=== PATIENT | male | born 1955 | race Caucasian/White ===

== ENCOUNTER 2016-06-26 14:37 | Observation (INO) | payer MEDICAID ==
[~2016-06-26] VITALS: Ht 175.3 cm; Wt 79.8 kg
--- NOTE | ~2016-06-26 | HEMODYNAMI ---
PATIENT:NARINDER KNOX MEDICAL RECORD: [id number] : 57 [facility] ADMISSION DATE: 06/26/16 Generatedon:06/27/201615:12 Patient name: NARINDER KNOX Patient #: [id number] SSN: DO B: 1955 Date of study: 06/27/2016 Page: Of Hemodynamic Procedure Report Patient Data Patient Demographics Procedure consent was obtained First Name: NARINDER Gender: Male Last Name: ABILIO : 1955 [facility] Initial: GONZALO Age: 61 year(s) Patient #: [id number] Race: Unknown Additional ID: [id number] Contact details Address: [address] [place] [address] [facility] State: [place] City: [place] Zip code: [address] Past Medical History Allergies Allergen Reaction Date Comments Reported Codeine 06/27/2016 Admission Admission Data Admission Date: 06/26/2016 Admission Time: 14:37 Room #: 2118 Procedure Procedure Types Cath Procedure Diagnostic Procedure [facility] w/Coronaries Miscellaneous Procedures Moderate Sedation up to 30 minutes Procedure Description Procedure Date Procedure Date: 06/27/2016 Procedure Start Time: 14:47 Procedure End Time: 15:08 Procedure Staff Name Function Isaias Deshpande MD Performing Physician Giles Marquez RT Scrub Sharla Eid RN Nurse Gómez Quevedo RT Monitor Procedure Data Cath Procedure Fluoroscopy Diagnostic fluoroscopy Total fluoroscopy Time: 3.9 time: 3.9 min min Diagnostic fluoroscopy Total fluoroscopy dose: 220 dose: 220 mGy mGy Contrast Material Contrast Material Type Amount (ml) Isovue 300 76 Entry Location Entry Primary Successful Side Size Upsize Upsize Entry Closure Olson ccessful Closure Location (Fr) 1 (Fr) 2 (Fr) Remarks Device Remarks Radial Right 6 Fr Mechanical artery Short Compression Femoral Right 5 Fr Exoseal artery Diagnostic catheters Device Type Used For End Catheter Placement Terumo 5Fr Jasson 110cm LV Angiography catheter Cordis 5Fr JL 4.0 Left Coronary Catheter (MP) Angiography Cordis 5Fr 3DRC Catheter Right Coronary (MP) Angiography Cordis 5Fr Pigtail LV Angiography Catheter (MP) Procedure Complications No complications Procedure Medications Medication Administration Route Dosage Oxygen NC 2 l/min Heparin Flush Bag added to field 2 bags (1000units/500ml NS) Lidocaine 2% added to field 20 Radial Cocktail added to field 1 syringe (Verapomil 2mg/Nitro 400mcg/Heparin 1500units) Fentanyl I.V. 50 mcg Versed I.V. 1 mg Radial Cocktail I.A. 1 syringe (Verapomil 2mg/Nitro 400mcg/Heparin 1500units) Fentanyl I.V. 50 mcg Versed I.V. 1 mg Versed I.V. 0.5 mg Versed I.V. 0.5 mg Hemodynamics Rest Heart Rate: 101 (bpm) Gradients Valve Time Site Site Mean SEP/DFP Peak To Heart Use 1 2 (mmHg) (sec/min) Peak Rate (mmHg) (bpm) Aortic 15:02 AO LV 100 Snapshots Pre Cath Intra NCS Post Cath Vital Signs Time Heart Resp SPO2 NIBP (mmHg) Rhythm Pain Sedation Rate (ipm) (%) Status Level (bpm) 14:37:19 103 25 97 114/75(100) NSR 0 (11) 10(A) , No pain 14:42:04 106 27 94 103/85(89) NSR 0 (11) 10(A) , No pain 14:46:06 102 20 93 97/76(86) NSR 0 (11) 10(A) , No pain 14:50:11 105 17 93 92/65(82) NSR 0 (11) 9(A) , No pain 14:54:15 101 16 92 109/64(99) NSR 0 (11) 9(A) , No pain 14:58:11 101 16 94 106/89(101) NSR 0 (11) 9(A) , No pain 15:02:12 101 17 93 111/78(88) NSR 0 (11) 9(A) , No pain 15:06:18 99 16 94 91/72(87) NSR 0 (11) 9(A) , No pain Medications Time Medication Route Dose Verified Delivered Reason Notes Effectiveness by by 14:41:25 Oxygen NC 2 l/min Sharla Sharla used for Eid Eid behavioral sciences department chair RN 14:41:33 Heparin Flush added 2 bags Sharla Sharla used for Bag to Eid Eid procedure (1000units/500ml field RN RN NS) 14:41:41 Lidocaine 2% added 20ml Sharla Sharla used for to vial Eid Eid procedure field RN RN 14:41:54 Radial Cocktail added 1 Sharla Sharla for (Verapomil to syringe Eid Eid vasodilation 2mg/Nitro field RN RN 400mcg/Heparin 1500units) 14:47:54 Fentanyl I.V. 50 mcg Sharla Sharla for sedation Eidernie Eid RN RN 14:47:59 Versed I.V. 1 mg Sharla Sharla for sedation Eidernie Eid RN RN 14:48:49 Radial Cocktail I.A. 1 Sharla Isaias for (Verapomil syringe Eid Epps vasodilation 2mg/Nitro RN 400mcg/Heparin 1500units) 14:49:37 Fentanyl I.V. 50 mcg Sharla Sharla for sedation Stanton Eid RN RN 14:49:42 Versed I.V. 1 mg Sharla Sharla for sedation Eidernie Eid RN RN 14:57:08 Versed I.V. 0.5 mg Sharla Sharla for sedation Eid Eid RN RN 15:00:37 Versed I.V. 0.5 mg Sharla Sharla for sedation Eid Eid RN residential interior designer Log Time Note 14:05:39 Giles Marquez RT(R) sent for patient. Start room use. 14:12:40 Time tracking: Regular hours 14:12:43 Plan of Care:Hemodynamics will remain stable., Cardiac rhythm will remain stable., Comfort level will be maintained., Respiratory function will remain adequate., Patient/ family verbilizes understanding of procedure., Procedure tolerated without complication., Recovers from procedure without complications.. 14:29:21 Patient received from PCU to CCL 3 Alert and oriented. Tansferred to table in Supine position. 14:29:22 Warm blankets applied, and twan hugger turned on for patient comfort. 14:29:22 Correct patient and procedure confirmed by team. 14:29:24 Signed procedure consent form obtained from patient. 14:29:25 ECG and BP/O2 sat monitors applied to patient. 14:35:58 Vital chart was started 14:41:25 Oxygen 2 l/min NC was administered by Sharla Eid RN; used for procedure; 14:41:33 Heparin Flush Bag (1000units/500ml NS) 2 bags added to field was administered by Sharla Eid RN; used for procedure; 14:41:41 Lidocaine 2% 20ml vial added to field was administered by Sharla Eid RN; used for procedure; 14:41:54 Radial Cocktail (Verapomil 2mg/Nitro 400mcg/Heparin 1500units) 1 syringe added to field was administered by Sharla Eid RN; for vasodilation; 14:44:42 Baseline sample Acquired. 14:44:45 Rhythm: sinus rhythm 14:44:47 Full Disclosure recording started 14:45:15 H&P Date Dictated: 06/26/2016 Within 30 days and on chart.. 14:45:16 Pre-procedure instructions explained to patient. 14:45:17 Pre-op teaching completed and patient verbalized understanding. 14:45:18 Family unavailable. 14:45:20 Patient NPO since Midnight. 14:45:37 Patient allergic to Codeine 14:45:40 Is the patient allergic to Iodine/contrast media? No. 14:45:45 Is patient on blood thinner?No 14:45:47 Patient diabetic? No. 14:45:49 If diabetic: On Metformin? No 14:45:49 ----Pre-sedation anethsthesia assessment.---- 14:45:52 Previous problem with sedation/anesthesia? No ? 14:45:53 Snore? Yes 14:45:54 Sleep apnea? No 14:45:55 Deviated septum? No 14:45:56 Opens mouth fully? Yes 14:45:58 Sticks out tongue? Yes 14:46:03 Airway obstruction? Yes copd 14:46:08 Dentures? Yes out 14:46:13 Pre procedure: right dorsailis pedis pulse 1+ Palpable, but thready & weak; easily obliterated 14:46:15 Modified Alex's test Ulnar < 7 seconds 14:46:19 Patient pain scale 0/10 ?. 14:46:22 IV patent on arrival in right antecubital with 0.9% NaCl at 10ml/hr. 14:46:27 Right Radial & Right Groin area was prepped with chlora-prep and draped in sterile fashion 14:46:27 Alarms reviewed by R. N. 14:46:28 Sharps counted by scrub and verified by R.N. 14:46:29 --------ALL STOP TIME OUT------ 14:46:29 Final Timeout: patient, procedure, and site verified with staff and physician. All members of the team are in agreement. 14:46:31 Right Radial & Right Groin site verified by team. 14:46:35 Physical assessment completed. ASA score P 2 - A patient with mild systemic disease as per Isaias Deshpande MD. 14:46:37 Sedation plan: IV Moderate Sedation Versed, Fentanyl 14:47:37 Use device set Radial Dx 14:47:38 Acist Syringe opened to sterile field. 14:47:39 Medline Cath Pack opened to sterile field. 14:47:39 Bag Decanter opened to sterile field. 14:47:39 Terumo 6Fr Slender Glidesheath opened to sterile field. 14:47:40 St Dionicio 260cm J .035 wire opened to sterile field. 14:47:40 Acist Hand Control opened to sterile field. 14:47:40 Acist Manifold opened to sterile field. 14:47:41 Tegaderm 4 x 4 opened to sterile field. 14:47:41 MBrace Wrist Support opened to sterile field. 14:47:44 Procedure started. 14:47:47 Local anesthetic to right femoral artery with Lidocaine 2% by Isaias Deshpande MD.INITIAL ACCESS ONLY 14:47:54 Fentanyl 50 mcg I.V. was administered by Sharla Edi RN; for sedation; 14:47:55 A 6 Fr Short sheath was inserted into the Right Radial artery 14:47:59 Versed 1 mg I.V. was administered by Sharla Eid RN; for sedation; 14:48:49 Radial Cocktail (Verapomil 2mg/Nitro 400mcg/Heparin 1500units) 1 syringe I.A. was administered by Isaias Deshpande MD; for vasodilation; 14:49:03 A Terumo 5Fr Jasson 110cm catheter was advanced over the wire and used for LV Angiography. 14:49:11 Zero performed for pressure channel P1 14:49:16 Zero performed for pressure channel P1 14:49:18 Zero performed for pressure channel P1 14:49:20 Zero performed for pressure channel P1 14:49:37 Fentanyl 50 mcg I.V. was administered by Sharla Eid RN; for sedation; 14:49:42 Versed 1 mg I.V. was administered by Sharla Eid RN; for sedation; 14:52:58 Terumo ANGLED SS 260CM glide wire opened to sterile field. 14:53:35 Zero performed for pressure channel P1 14:53:39 Zero performed for pressure channel P1 14:54:46 Zero performed for pressure channel P1 14:55:00 Catheter removed. 14:55:30 Local anesthetic to right femoral artery with Lidocaine 2% by Isaias Deshpande MD.ADDITIONAL ACCESS 14:55:37 Terumo 5Fr Kenneth Sheath opened to sterile field. 14:55:44 Use device set Multipack Set 14:55:46 Diagnostic Infinity 5Fr Multipack catheter opened to sterile field. 14:57:08 Versed 0.5 mg I.V. was administered by Shalra Eid RN; for sedation; 14:58:26 A 5 Fr sheath was inserted into the Right Femoral artery 14:58:31 A Cordis 5Fr JL 4.0 Catheter (MP) was advanced over the wire and used for Left Coronary Angiography. 14:58:34 LCA angiography performed. 14:59:04 Catheter removed. 14:59:09 A Cordis 5Fr 3DRC Catheter (MP) was advanced over the wire and used for Right Coronary Angiography. 14:59:12 RCA angiography performed. 15:00:37 Versed 0.5 mg I.V. was administered by Sharla Eid RN; for sedation; 15:00:52 Catheter removed. 15:00:58 A Cordis 5Fr Pigtail Catheter (MP) was advanced over the wire and used for LV Angiography. 15:01:00 LV angiography performed. 15:01:05 Injector settings: Ml/sec: 10, Volume: 20, 15:01:57 Zero performed for pressure channel P1 15:02:41 EF : 50 % 15:02:43 Catheter removed. 15:02:52 Contrast amount:Isovue 300 76ml. 15:03:07 Cordis 5Fr Exoseal opened to sterile field. 15:03:07 Terumo TR Band Standard opened to sterile field. 15:05:11 Zero performed for pressure channel P1 15:06:04 Sheath removed intact; hemostasis achieved with Exoseal to the Right Femoral artery. 15:06:12 Sheath removed intact; hemostasis achieved with Mechanical Compression to the Right Radial artery. 15:06:15 Procedure ended.(Physican Out) 15:06:40 Fluoroscopy time 03.90 minutes. 15:06:46 Flurop Dose total: 220 15:06:46 Fluoroscopy dose: 220 mGy 15:06:48 Sharps counted by scrub and verified by R.N. 15:06:50 TR band inflated with 10cc of air. 15:06:52 Insertion/operative site no bleeding no hematoma. 15:06:55 Post-op/insertion site Right Femoral artery dressed using a 4 x 4 and Tegaderm. 15:06:59 Post right femoral artery:stable 15:07:04 Post right radial artery:stable 15:07:13 Post-procedure physical assessment completed. ASA score P 2 - A patient with mild systemic disease as per Isaias Deshpande MD. 15:07:15 Post procedure rhythm: sinus rhythm 15:07:17 Post procedure instruction explained to patient.Patient verbalizes understanding. 15:07:33 Procedure type changed to Cath procedure, Diagnostic procedure, LHC, LHC w/Coronaries, Miscellaneous Procedures, Moderate Sedation up to 30 minutes 15:07:37 Procedure and supply charges have been captured, reviewed, submitted and are correct. 15:07:51 Procedure Complication : No complications 15:07:53 Vital chart was stopped 15:07:53 See physician's report for complete and final results. 15:07:55 Report given to PCU. 15:07:58 Patient transfered to PCU with Bed. 15:08:04 Procedure ended. 15:08:04 Full Disclosure recording stopped 15:08:12 End room use (Document Last) Device Usage Item Name Manufacture Quantity Catalog Hospital Part Current Minimal Lot# / Number Charge Number Stock [facility]# [facility] 417[facility] [id number] [id number] 20 Syringe [employer] Inc Medline Cardinal 1 [id number] 232290 95981 667614 5 Cath Pack Health Bag Microtek 1 2001S [id number] 92076 200907 5 [employer] Terumo 6Fr Terumo 1 [id number] 919587 904131 077142 [address] Dionicio St Dionicio 1 715575 318261 953488 347323 30 260cm J .035 wire Acist Hand Acist 1 62222 676996 381182 420958 5 Control Medical [employer] Inc Acist Acist 1 37583 550628 613039 543567 5 Manifold Medical Systems Inc Tegaderm 4 3M 1 1626W 239671 119316 973549 5 x 4 MBrace Advanced 1 140-0250-00 326000 67393 559563 5 Wrist Vascular Support Dynamics Terumo 5Fr Terumo 1 73-8324 336990 509000 552471 5 Jasson 110cm catheter Terumo Terumo 1 [id number] 212934 280897 227243 5 ANGLED SS 260CM glide wire Terumo 5Fr Terumo 1 [id number] 380746 650425 943641 40 Kenneth Sheath Diagnostic Cardinal 1 [id number] 918034 49509 860650 30 Infinity [employer] 5Fr Multipack catheter Cordis 5Fr Cardinal 1 636622 5 JL 4.0 Health Catheter (MP) Cordis 5Fr Cardinal 1 684449 5 3DRC Health Catheter (MP) Cordis 5Fr Cardinal 1 295384 5 Pigtail Health Catheter (MP) Cordis 5Fr Cardinal 1 EX500 973321 557867 061008 10 Exoseal Health Terumo TR Terumo 1 [id number] 011896 581722 935989 40 Band Standard Signature Audit [place] Stage Time Signature Unsigned Intra-Procedure 06/27/2016 Gómez Quevedo 3:12:03 PM RT(R) Signatures Monitor : Gómez Quevedo RT Signature : Date : Time : [facility] [address] [place] [address]
[~2016-06-26 14:37] MED LIST: IPRAT-ALBUT 0.5-3 ML UPD; LANOXIN250 MCG PO; MOTRIN600 MG PO; NORCO 10/325 TA1 TA1 PO
--- NOTE | 2016-06-26 15:00 | NUR ---
RECEIVED PT FROM ADMISSIONS VIA W/C WITH SOB O2 SAT 91% ON ROOM AIR O2 APPLIED 2LPM NC O2 SAT 97% SKIN W/D COLOR WNL 2+ PITTING EDEMA NOTED TO BLEs SALINE LOCK ACCESSED TO RFA X2 STICKS USING 20 GA IV CATH WITH ASEPTIC TECJNIQUE PT PT TOLERATED WELL TELEMETRY APPLIED SINUS TACH RATE 110 WILL CONTINUE TO MONITOR
[2016-06-26] MEDS ORDERED: FUROSEMIDE20 MG PO (15:08)
[2016-06-26 15:19] VITALS: BP 144/69; BMI 26.0
[2016-06-26 15:36] LABS: BASOPHILS 0.4 % (0.0-2.0); EOSINOPHILS 0.6 % (0-7); HEMATOCRIT 40.2 % (42.0-54.0); HEMOGLOBIN 13.6 g/dL (13.5-17.5); IMMATURE GRANULOCYTES 0.1 % (0-5); LYMPHOCYTES 15.3 % (15-50); MCH 32.5 pg (26.0-34.0); MCHC 33.8 g/dL (31.0-37.0); MCV 95.9 fL (80.0-100.0); MEAN PLATELET VOLUME 9.3 fL (7.4-10.4); MONOCYTES 11.6 % (2-11); PLATELET COUNT 190 10x3/uL (130-400); RBC 4.19 10x6/uL (4.20-6.10); RDW 16.4 % (11.5-14.5); WBC 7.8 10x3/uL (4.8-10.8)
--- NOTE | 2016-06-26 15:46 | NUR ---
SPOKE WITH SILVIA/OLEG CHOWDHURY TO ADVISE TO PUT PT ON FOR LHC WITH DR. MCNEILL FOR TOMORROW AFTERNOON. VERBAL ACKNOWLEDGEMENT RECEIVED.
[2016-06-26 15:48] LABS: INR 1.27 (0.85-1.17); PROTIME 15.8 SECONDS (11.6-15.0)
[2016-06-26 15:51] VITALS: BP 144/69
[2016-06-26 15:53] LABS: CALC OSMOLALITY 284 mosm/kg (275-300); CALCIUM 8.9 mg/dL (8.5-10.1); CARBON DIOXIDE 32.2 mmol/L (21.0-32.0); CHLORIDE - SERUM 100 mmol/L (98-107); GLUCOSE 112 mg/dL (74-106); POTASSIUM - SERUM 4.2 mmol/L (3.5-5.1); SODIUM 142 mmol/L (136-145); UREA NITROGEN 14 mg/dL (7-18); eGFR NON AFRICAN AMERICAN 81 mL/min (90-120)
--- NOTE | 2016-06-26 19:15 | NUR ---
INITIAL ROUNDS MADE. PT SITTING UP IN BED WATCHING TV WITH FAMILY AT BEDSIDE. DISCUSSED PLAN OF CARE AND ANSWERED QUESTIONS. PT DENIES NEEDS OR C/O AT THIS TIME. CALL LIGHT IN REACH. WILL CONT TO MONITOR.
--- NOTE | 2016-06-26 23:56 | NUR ---
BODY MASKER AT BEDSIDE FOR VS. NEEDS ADDRESSED AT THIS TIME. CALL LIGHT IN REACH. WILL CONT TO MONITOR.
[2016-06-27] VITALS: BP 100/71
[2016-06-27 04:00] VITALS: BP 116/68
[2016-06-27 07:48] VITALS: BP 87/63
[2016-06-27 09:32] LABS: BASOPHILS 0.5 % (0.0-2.0); EOSINOPHILS 1.8 % (0-7); HEMATOCRIT 47.4 % (42.0-54.0); HEMOGLOBIN 16.3 g/dL (13.5-17.5); LYMPHOCYTES 22.3 % (15-50); MCH 32.9 pg (26.0-34.0); MCHC 34.4 g/dL (31.0-37.0); MCV 95.8 fL (80.0-100.0); MEAN PLATELET VOLUME 9.7 fL (7.4-10.4); MONOCYTES 15.5 % (2-11); NEUTROPHILS 59.9 % (40-80); PLATELET COUNT 222 10x3/uL (130-400); RBC 4.95 10x6/uL (4.20-6.10); WBC 6.3 10x3/uL (4.8-10.8)
[2016-06-27 09:41] LABS: CALC OSMOLALITY 282 mosm/kg (275-300); CALCIUM 8.6 mg/dL (8.5-10.1); CARBON DIOXIDE 38.3 mmol/L (21.0-32.0); CHLORIDE - SERUM 96 mmol/L (98-107); CREATININE - SERUM 0.9 mg/dL (0.6-1.3); GLUCOSE 121 mg/dL (74-106); SODIUM 141 mmol/L (136-145); UREA NITROGEN 14 mg/dL (7-18); eGFR NON AFRICAN AMERICAN > 90 mL/min (90-120)
[2016-06-27 09:58] LABS: POTASSIUM - SERUM 3.1 mmol/L (3.5-5.1)
--- NOTE | 2016-06-27 10:04 | NUR ---
PT IS ALERT. ASSESSMENT DONE PER FLOWSHEET. NO OTHER NEEDS AT THIS TIME. WILL CONTINUE TO MONITOR.
[2016-06-27 11:46] VITALS: BP 94/64
[2016-06-27 14:08] VITALS: Ht 175.3 cm; Wt 79.8 kg
--- NOTE | 2016-06-27 14:30 | NUR ---
PT IS ALERT. NO SS OF DISTRESS AT THIS TIME. 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
[2016-06-27] MEDS ORDERED: HYZAAR 50-12.51 TAB PO (15:34)
[2016-06-27 16:01] VITALS: BP 99/71
--- NOTE | 2016-06-28 14:36 | OP ---
PATIENT NAME: NARINDER KNOX MEDICAL RECORD: [id number] :57 LOCATION:D.M2 D.2118 ADMISSION DATE:06/26/16 SURGEON: GAURAV MCNEILL MD DATE OF OPERATION: 06/27/2016 PROCEDURE: Left heart catheterization, selective coronary angiography, right femoral artery approach. CATHETERS: A 5-Maltese sheath, 5/4 left and right Tha, 5/4 pig. The procedure was well tolerated and the patient returned to beltre, sheath removed. ExoSeal device was placed. FINDINGS: Left ventriculography in the 30-degree MANCILLA view shows global hypokinesis, EF 15% to 20%. CORONARY ANATOMY: Left main: Left main is free of disease. LAD: Free of disease in the diagonal system. CIRCUMFLEX: Free of disease in the marginal system. RIGHT CORONARY ARTERY: Dominant artery, gives rise to PDA, free of disease. IMPRESSION: Nonischemic cardiomyopathy, start ARB, addition of carvedilol or other beta blockade as pressures tolerate. TRANSINT:[id number] Voice Confirmation ID: [id number] DOCUMENT ID: [id number] GAURAV MCNEILL MD at 1436 CC: [id number] DICTATION DATE: 06/27/16 1510 TANK HOUSE OPERATOR HELPER: 06/28/16 0036 DIS IN 06/27/16 [place] [address] [place] [address]
--- NOTE | 2016-08-03 16:18 | DS ---
PATIENT:NARINDER KNOX :57 MEDICAL RECORD: [id number] DISCHARGE SUMMARY ADMISSION DATE: 06/26/16 DISCHARGE DATE: 06/27/16 DISCHARGE DIAGNOSES: 1. Cardiomyopathy with acute exacerbation of [id number] congestive heart failure. 2. Lung carcinoma, status post chemotherapy. 3. Obstructive pulmonary disease. BRIEF HISTORY AND HOSPITAL COURSE: A 61-year-old gentleman, admitted with cardiomyopathy exacerbation, thought to be chemotherapeutic, underwent diagnostic angiography to ensure no evidence of coronary artery disease, was indeed normal. He was diuresed. Discharged home in good condition. ACTIVITY: As tolerated. DIET: AHA low sodium diet. FOLLOWUP: In office in approximately 1 month. TRANSINT:[id number] Voice Confirmation ID: [id number] DOCUMENT ID: [id number] GAURAV MCNEILL MD at 1618 CC: [id number] DICTATION DATE: 08/02/16 1314 FARM EQUIPMENT SERVICE TECHNICIAN: 08/03/16 0512 DIS IN 06/27/[address] [address]
== END 2016-06-27 19:09 | disposition home or self-care (01) ==
LOC: D.M2 14:37 → OBSVTIME 06-27 17:08 → D.M2 06-27 19:09
PROVIDERS: Internal Medicine Interventional Cardiology; ADMIT Internal Medicine Interventional Cardiology
DX: I24.9 Acute ischemic heart disease, unspecified (principal); I42.9 Cardiomyopathy, unspecified; I45.10 Unspecified right bundle-branch block; C34.90 Malignant neoplasm of unspecified part of unspecified bronchus or lung; Z87.891 Personal history of nicotine dependence

== ENCOUNTER 2017-04-16 15:54 | Inpatient (IN) | payer MEDICARE ==
[~2017-04-16] VITALS: Ht 175.3 cm; Wt 77.0 kg
[~2017-04-16 15:54] MED LIST changes: +FUROSEMIDE20 MG PO; +HYZAAR 50-12.51 TAB PO
[2017-04-16 16:24] LABS: BASOPHILS 0 % (0-2); EOSINOPHILS 0 % (0-7); HEMATOCRIT 45.2 % (42.0-54.0); HEMOGLOBIN 16.1 g/dL (13.5-17.5); IMMATURE GRANULOCYTES 0.2 % (0-5); LYMPHOCYTES 27.5 % (15-50); MCH 35.6 pg (26.0-34.0); MCHC 35.6 g/dL (31.0-37.0); MEAN PLATELET VOLUME 9.8 fL (7.4-10.4); MONOCYTES 10.3 % (2-11); RBC 4.52 10x6/uL (4.20-6.10); RDW 14.4 % (11.5-14.5)
[2017-04-16 16:26] LABS: PLATELET COUNT 145 10x3/uL (130-400)
[2017-04-16 16:50] LABS: ALBUMIN 3.6 g/dL (3.4-5.0); ALKALINE PHOSPHATASE 61 U/L (46-116); ALT (SGPT) 62 U/L (10-68); BILIRUBIN - TOTAL 1.43 mg/dL (0.2-1.3); CALC OSMOLALITY 265 mosm/kg (275-300); CALCIUM 8.2 mg/dL (8.5-10.1); CARBON DIOXIDE 29.8 mmol/L (21.0-32.0); CHLORIDE - SERUM 88 mmol/L (98-107); CREATININE - SERUM 1.2 mg/dL (0.6-1.3); GLUCOSE 90 mg/dL (74-106); POTASSIUM - SERUM 3.7 mmol/L (3.5-5.1); PROTEIN - SERUM 7.1 g/dL (6.4-8.2); SODIUM 131 mmol/L (136-145); UREA NITROGEN 22 mg/dL (7-18); eGFR NON AFRICAN AMERICAN 65 mL/min (90-120)
[2017-04-16 17:02] LABS: CHOL - HDL RATIO 2.1 ratio (2.3-4.9); CHOLESTEROL, TOTAL 173 mg/dL (0-200); CKMB 21.2 U/L (0.0-3.6); HDL CHOLESTEROL 84 mg/dL (32-96); LDL CHOLESTEROL 57 mg/dL (0-100); LDL-HDL RATIO 0.7 ratio (1.5-3.5); PRO BNP 5715 pg/mL (0-125); TRIGLYCERIDE 163 mg/dL (30-200)
[2017-04-16 17:06] LABS: CREATINE KINASE 922 UL (21-232)
[2017-04-16 17:08] LABS: TROPONIN-I 0.088 ng/mL (0.000-0.060)
[2017-04-16 23:31] LABS: CKMB 23.4 U/L (0.0-3.6); CREATINE KINASE 929 UL (21-232)
[2017-04-17] VITALS (15 sets, daily range): BP systolic 94–132; BP diastolic 41–78; Ht 175.3 cm; Wt 77.0 kg
[2017-04-17] MEDS ORDERED: LANOXIN250 MCG PO (00:08)
[2017-04-17 04:04] LABS: BASOPHILS 0 % (0-2); EOSINOPHILS 0 % (0-7); HEMATOCRIT 42.2 % (42.0-54.0); HEMOGLOBIN 14.8 g/dL (13.5-17.5); IMMATURE GRANULOCYTES 0.3 % (0-5); LYMPHOCYTES 13.9 % (15-50); MCH 34.8 pg (26.0-34.0); MCHC 35.1 g/dL (31.0-37.0); MCV 99.3 fL (80.0-100.0); MEAN PLATELET VOLUME 9.8 fL (7.4-10.4); MONOCYTES 8.1 % (2-11); NEUTROPHILS 77.7 % (40-80); PLATELET COUNT 128 10x3/uL (130-400); RBC 4.25 10x6/uL (4.20-6.10); RDW 14.2 % (11.5-14.5); WBC 7.8 10x3/uL (4.8-10.8)
[2017-04-17 04:48] LABS: ALBUMIN 3.2 g/dL (3.4-5.0); ALKALINE PHOSPHATASE 54 U/L (46-116); ALT (SGPT) 53 U/L (10-68); BILIRUBIN - TOTAL 1.33 mg/dL (0.2-1.3); CALC OSMOLALITY 271 mosm/kg (275-300); CALCIUM 7.7 mg/dL (8.5-10.1); CARBON DIOXIDE 27.7 mmol/L (21.0-32.0); CHLORIDE - SERUM 93 mmol/L (98-107); CKMB 20.8 U/L (0.0-3.6); CREATINE KINASE 748 UL (21-232); CREATININE - SERUM 0.8 mg/dL (0.6-1.3); GLUCOSE 75 mg/dL (74-106); POTASSIUM - SERUM 3.5 mmol/L (3.5-5.1); PROTEIN - SERUM 6.3 g/dL (6.4-8.2); SODIUM 135 mmol/L (136-145); UREA NITROGEN 21 mg/dL (7-18); eGFR NON AFRICAN AMERICAN > 90 mL/min (90-120)
[2017-04-17 10:29] LABS: CKMB 17.2 U/L (0.0-3.6); CREATINE KINASE 612 UL (21-232)
[2017-04-17 10:30] LABS: TROPONIN-I 0.158 ng/mL (0.000-0.060)
[2017-04-17] MEDS ORDERED: CARDIZEM CD180 MG PO (15:46)
== END 2017-04-17 18:33 | disposition home or self-care (01) | DRG 280 ==
LOC: D.ER 15:54 → D.ICU 22:12 → D.CVICU 22:12
PROVIDERS: Family Medicine
DX: I48.91 Unspecified atrial fibrillation (principal); J96.90 Respiratory failure, unspecified, unspecified whether with hypoxia or hypercapnia; I21.4 Non-ST elevation (NSTEMI) myocardial infarction; J44.1 Chronic obstructive pulmonary disease with (acute) exacerbation; F10.10 Alcohol abuse, uncomplicated; I73.9 Peripheral vascular disease, unspecified; Z72.0 Tobacco use

== ENCOUNTER 2018-01-25 09:30 | Inpatient (IN) | payer MEDICARE ==
[~2018-01-25] VITALS: Ht 175.3 cm
--- NOTE | ~2018-01-25 | MORECARE ---
CASE MANAGEMENT DISCHARGE SUMMARY PATIENT: NARINDER KNOX UNIT: [id number] ADM DATE: 01/25/18 AGE: 62 : 57 SEX: M ROOM/BED: D.3309 AUTHOR: MAYDA,DOC PHYSICIAN: REFERRING PHYSICIAN: LEANDRO FRANCOIS MD DATE OF SERVICE: 02/07/18 Discharge Plan Patient Name: NARINDER KNOX Facility: [facility]:[place] : 1955 Planned Disposition: Inpatient Rehab Anticipated Discharge Date: Discharge Date: Expected LOS: Initial Reviewer: [id number] Initial Review Date: 01/25/2018 Generated: 02/07/18 11:34 am Comments DCP- Discharge Planning Updated by [email or web address]: Raj Diamond on 02/07/18 9:[address] Patient Name: NARINDER KNOX Encounter No: [id number] : 1955 Primary Insurance: MEDICARE A & B Anticipated DC Date: Planned Disposition: Inpatient Rehab External Planned Provider: [facility] INPATIENT REHAB DCP follow-up note: CM REVIEWED PT'S CHART, INPATIENT REHAB INDICATES PT NEEDS TO BE PARTICIPATING FOR REHAB CONSIDERATION. CM SPOKE TO PT IN ROOM PT WOULD LIKE REHAB AT [facility] INPATIENT REHAB WITH GOAL OF RETURNING HOME INDEPENDENTLY. CM ASKED PT ABOUT REFUSING THERAPY SERVICES. PT DENIES THAT HE REFUSES, HE REPORTS THAT HE HAS BEEN GETTING UP TO THE CHAIR AND HAS BEEN UP IN CHAIR YESTERDAY FOR THREE HOURS BEFORE ASKING TO GO BACK TO BED. PT STATES HE IS DOING ALL THAT HE HAS BEEN ASKED TO DO. CM ENCOURAGED PT TO NOT REFUSE ANY THERAPY AND TO REQUEST THE THERAPIST TO WORK WITH HIM. PT REPORTS UNDERSTANDING. CM DISCUSSED DETENTION FACILITY AVAILABILITY AND DISCUSSED POSSIBILITY OF SNF REHAB IF DECLINED BY INPATIENT REHAB. [facility], CHOICE SIGNED; PT REPORTS PREFERENCE FOR INPATIENT REHAB AT [place]. IMPORTANT MESSAGE FROM MEDICARE. CM NOTIFIED RN [facility] WHO NOTIFIED THERAPY. CM CALLED AND SPOKE TO DANIEL OF INPATIENT REHAB WHO INFORMED CM THAT THEY WILL MEET WITH PT TODAY AND THERE IS POSSIBILITY THEY MAY ACCEPT PT INTO REHAB TODAY IF STABLE FOR DISCHARGE TO REHAB. CM WAITING ADMISSION DETERMINATION AND COMPLETION OF INPATIENT REHAB PRESCREENING BY [facility] INPATIENT REHAB. DELLA Gamble DCP- Discharge Planning Updated by [id number]: Raj Diamond on 02/06/18 11:[address] Patient Name: NARINDER KNOX Encounter No: [id number] : 1955 Primary Insurance: MEDICARE A & B Anticipated DC Date: Planned Disposition: Inpatient Rehab External Planned Provider: [facility] INPATIENT REHAB DCP follow-up note: CM RECEIVED ORDER FOR INPATIENT REHAB PRESCREENING, SPOKE TO DANIEL OF [facility] INPATIENT REHAB WHO WILL REVIEW PT FOR ADMISSION. CM SPOKE TO PT IN ROOM PT WOULD LIKE REHAB AT [facility] INPATIENT REHAB WITH GOAL OF RETURNING HOME INDEPENDENTLY. CM WAITING ADMISSION DETERMINATION AND COMPLETION OF INPATIENT REHAB PRESCREENING BY [facility] INPATIENT REHAB. DELLA Gamble DCP- Discharge Planning Updated by [id number]: Raj Diamond on 02/04/18 3:[address] Patient Name: NARINDER KNOX Encounter No: [id number] : 1955 Primary Insurance: MEDICARE A & B Anticipated DC Date: Planned Disposition: Inpatient Rehab External Planned Provider: [facility] INPATIENT REHAB DCP follow-up note: CM MET WITH PT IN ROOM TO DISCUSS DISCHARGE PLANNING AND NEEDS. PT REPORTS LIVING AT HOME INDEPENDENTLY WITH ADULT ROOM MATE. PT HAS NEBULIZER WITH NO MEDICAL EQUIPMENT PROVIDER PREFERENCE. PT HAS NO OUTSIDE SERVICES ASSISTING IN THE HOME. CM DISCUSSED AVAILABILITY OF HOME HEALTH, REHAB SERVICES AND MEDICAL EQUIPMENT. PT REPORTS A NURSE MENTIONED REHAB AT [place] AND PT FEELS HE NEEDS REHAB AND WOULD LIKE REHAB AT [place] INPATIENT IF POSSIBLE. PT REPORTS HE WILL PHONE A FRIEND TO PICK HIM UP FOR DISCHARGE HOME. IMPORTANT MESSAGE FROM MEDICARE PROVIDED AND EXPLAINED. PT WOULD LIKE REHAB AT [place]. CM WILL DISCUSS ORDER FOR INPATIENT REHAB PRESCREENING WITH THE DOCTOR AND WAIT MEDICAL STABILITY FOR DISCHARGE. Raj Diamond CASE MANAGEMENT DCP- Discharge Planning Updated by [id number]: Luisa Pope on 02/02/18 9:[address] Patient Name: NARINDER KNOX Admission Status: ER Accout number: [id number] Admission Date: 01-25-2018 : 1955 Admission Diagnosis:PNEUMONIA, UNSPECIFIED ORGANISM Attending: PRISCILA, Current LOS: 8 Anticipated DC Date: Planned Disposition: Primary Insurance: MEDICARE A & B Discharge Planning Comments: PATIENT IS ON BIPAP, UNABLE TO SPEAK TO HIM AT THIS TIME. ATTEMPTED TO GET IN TOUCH WITH FAMILY BUT NO ANSWER AND NOT IN WAITING ROOM. WILL TRY AGAIN LATER. CM WILL FOLLOW AND ASSIST NEEDED WITH DC PLANNING NEEDS. Solar Mechanical Engineer: Luisa Pope DCP- Discharge Planning Updated by [email or web address]: Jannet Mendoza on 01/29/18 12:[address] ATTEMPTED TO SEE PATIENT TO DO THE DC PLANNING, PATIENT UNABLE TO ANSWER QUESTIONS AT THIS TIME. WILL ATTEMPT AT ANOTHER TIME DCPIA - Discharge Planning Initial Assessment Updated by [id number]: Raj Diamond on 02/04/18 4:54 pm * Is the patient Alert and Oriented? Yes * How many steps to enter\exit or inside your home? * PCP DR TABATHA LAKE * [facility] [address] * Preadmission Environment Home with Family * ADLs Independent * Equipment Nebulizer * Other Equipment NO MEDICAL EQUIPMENT PROVIDER PREFERENCE * List name and contact numbers for known caregivers / representatives who currently or will assist patient after discharge: PT STATES NO ONE * Verbal permission to speak to the caregivers and representatives has been obtained from the patient. N/A * Community resources currently utilized None * Please name any agencies selected above. NONE * Additional services required to return to the preadmission environment? Yes * Can the patient safely return to the preadmission environment? Yes * Has this patient been hospitalized within the prior 30 days at any hospital? No Coverage Notice Reviewer: [id number] Diamond Notice Issued Date-Time: 02/04/2018 16:45 Notice Type: IM Discharge Notice Notice Delivered To: Patient Relationship to Patient: Contract Manager Name: Delivery Method: HAND - Hand Delivered Jihan Days: Prior Verbal Notification: Recipient Understood Notice: Yes Recipient Signature: Yes Med Rec Note Co-signed by Attending: Coverage Notice Comment: Reviewer: [id number] Diamond Notice Issued Date-Time: 02/07/2018 10:05 Notice Type: IM Discharge Notice Notice Delivered To: Patient Relationship to Patient: Contract Manager Name: Delivery Method: HAND - Hand Delivered Jihan Days: Prior Verbal Notification: Recipient Understood Notice: Yes Recipient Signature: Yes Med Rec Note Co-signed by Attending: Coverage Notice Comment: Reviewer: [id number] Diamond Notice Issued Date-Time: 02/07/2018 10:05 Notice Type: Patient Choice Letter Notice Delivered To: Patient Relationship to Patient: Contract Manager Name: Delivery Method: HAND - Hand Delivered Jihan Days: Prior Verbal Notification: Recipient Understood Notice: Yes Recipient Signature: Yes Med Rec Note Co-signed by Attending: Coverage Notice Comment: [facility] Last DP export: 02/06/18 11:17 a Patient Name: NARINDER KNOX Page [phone] at 1034 All edits/amendments must be made on the electronic document DICTATION DATE: 02/07/18 1033 GROUNDS CARETAKER: JOVANA 02/07/18 1033 RPT#: [id number] DC DATE: STATUS: ADM IN [facility] [address] [place] [address] END OF REPORT
--- NOTE | ~2018-01-25 | CN ---
PATIENT NAME:NARINDER LI MEDICAL RECORD: [id number] : [birth year] LOCATION:D. D.2128 ADMIT DATE: 01/25/18 ACCOUNT: [id number] CONSULTING PHYSICIAN: CAMRON HCANDLER MD REFERRING PHYSICIAN: LEANDRO FRANCOIS MD DATE OF CONSULTATION: 01/25/2018 CONSULT REQUESTING PHYSICIAN: Dr. Francois REASON FOR CONSULTATION: Pneumonia. HISTORY OF PRESENT ILLNESS: Mr. Li is a 62-year-old gentleman, very well known to me. He was diagnosed with CA of the lung in 2013. He underwent left pneumonectomy at [facility]. Since then, he has not followed with Dr. Butterfield, no followup at [place]. According to the patient, he was at home, he was drinking, he had a fall complaining of backache. The last drink was 5 days ago, possibly the patient was passing out when he was drunk. Denies any fever and chill. No significant weight loss. No night sweats. No associated nausea and vomiting. REVIEW OF SYSTEMS: As in the history of present illness. PAST MEDICAL HISTORY: 1. CA of the lung, diagnosed in 2012 - 2013. 2. Status post left pneumonectomy. 3. Chronic obstructive pulmonary disease. 4. History of atrial fibrillation. 5. History of left pleural effusion, status post thoracentesis. PAST SURGICAL HISTORY: He has left pneumonectomy. ALLERGIES: ALLERGIC TO CODEINE. PRESENT MEDICATIONS: On [employer], he is on diltiazem for atrial fibrillation. He was also taking digoxin. PERSONAL AND SOCIAL HISTORY: The patient is a current everyday smoker as well as drinker. FAMILY HISTORY: Significant for cancer. PHYSICAL EXAMINATION: GENERAL: Now, the patient is lying comfortable, but he is not in acute distress. VITAL SIGNS: The blood pressure is 128/60, pulse is 86, respirations 22, temperature 98.4, and SPO2 is 92% on 3 liters nasal cannula. HEENT: Conjunctivae are pink. Sclerae are not icteric. NECK: Supple, no JVD. CHEST: Excursion is minimal on both sides. There are no breath sounds on the left side. There is a wheeze on forceful expiration on the right. HEART: Rhythm regular, normal sound, no murmur. ABDOMEN: Soft, bowel sounds present. No hepatosplenomegaly. RECTAL: Deferred. EXTREMITIES: No cyanosis, no clubbing, no pedal edema. SKIN: Warm, normal turgor. CONSULT REPORT [id number] NARINDER LI CENTRAL NERVOUS SYSTEM: The patient is awake and alert, in no obvious cranial nerve abnormality. The gait was not tested. IMAGING: CTA of the chest: There is no pulmonary embolism, but there is a cavitating lesion on the right side. There is also tree-in-bud appearance. OTHER LABORATORY DATA: CBC: The WBC is 5.5, hemoglobin 11.9, hematocrit 34.5, the platelet count is 81. Chemistry: Sodium 134, potassium is 4.1, BUN is 50, creatinine 1.1. IMPRESSION: 1. Atypical pneumonia, possible aspiration pneumonia with the patient's history of drinking. 2. Dehydration. 3. Chronic obstructive pulmonary disease with acute exacerbation. 4. History of cancer of the left lung, status post left pneumonectomy. 5. Alcoholism. 6. Tobacco dependence syndrome. 7. Thrombocytopenia. RECOMMENDATIONS: 1. We will start him on clindamycin IV. 2. Albuterol/ipratropium nebulizer. 3. Brovana/budesonide nebulizer. 4. Gentle hydration. 5. We will repeat the chest radiograph. 6. Elevated cardiac enzymes, rule out acute coronary syndrome. 7. Atrial fibrillation. 8. Follow up labs and chest radiograph. Dr. Francois, thank you for involving me in the care of Mr. Li. TRANSINT:[id number] Voice Confirmation ID: [id number] DOCUMENT ID: [id number] CAMRON CHANDLER MD at 1234 CC: [id number] DICTATION DATE: 01/25/18 1738 SHOE REPAIRER: 01/26/18 0720 DIS IN 02/07/18 [place] [address] [place] [address]
--- NOTE | ~2018-01-25 | OP ---
PATIENT NAME: NARINDER LI MEDICAL RECORD: [id number] :[birth year] LOCATION:D. D.2128 ADMISSION DATE:01/25/18 SURGEON: CAMRON CHANDLER MD DATE OF OPERATION: 01/27/2018 PROCEDURE: Fiberoptic bronchoscopy. INDICATIONS: Mr. Li is a 62-year-old gentleman who has a history of CA of the lung more than 4 years ago. He underwent left pneumonectomy. Now, he presented with the coughing. CT scan of the chest showed cavitating lesion and multilobar infiltrate with a tree-in-bud appearance. Fiberoptic bronchoscopy was carried to obtain specimen for cultures and sensitivity. MONITORING: EKG, pulse, and blood pressure were monitored throughout the procedure. MEDICATIONS: Versed 2 mg IV in divided doses, morphine 4 mg IM, atropine 0.6 IM, fentanyl 50 mcg IV. PROCEDURE IN DETAIL: After obtaining conscious sedation, the fiberoptic bronchoscope was passed through the mouth. There was atrophy of the right vocal cord. The left was moving equally on phonation. The main trachea was normal. The shaggy was sharp. The stoma on the left was normal. The left main bronchus was normal. The right main bronchus was normal. The subsegment to the right upper lobe within normal range. No endobronchial lesion was seen. The bronchus intermedius was normal. The right middle lobe, the subsegment to the superior segment of the right lower lobe, and right lower lobe within normal range. No endobronchial lesion was seen. There was thick yellowish secretion on the right side. Specimen washing was obtained and sent for routine culture and sensitivity, AFB, and fungus and cytology. Overall, the patient tolerated the procedure very well. TRANSINT:[id number] Voice Confirmation ID: [id number] DOCUMENT ID: [id number] CAMRON CHANDLER MD at 1234 CC: [id number] DICTATION DATE: 01/27/18 1551 OLIVE BRINE TESTER: 01/27/181956 DIS IN 02/07/18 [place] [address] [place] [address]
--- NOTE | ~2018-01-25 | MORECARE ---
CASE MANAGEMENT DISCHARGE SUMMARY PATIENT: NARINDER KNOX UNIT: [id number] ADM DATE: 01/25/18 AGE: 62 : 57 SEX: M ROOM/BED: D.2201 AUTHOR: MARICHUY OHARA PHYSICIAN: REFERRING PHYSICIAN: LEANDRO FRANCOIS MD DATE OF SERVICE: 01/29/18 Discharge Plan Patient Name: NARINDER KNOX Facility: [facility]:[place] : 1955 Planned Disposition: Anticipated Discharge Date: Discharge Date: Expected LOS: Initial Reviewer: [email or web address] Initial Review Date: 01/25/2018 Generated: 01/29/18 2:55 pm Comments DCP- Discharge Planning Updated by [email or web address]: Jannet Mendoza on 01/29/18 12:[address] ATTEMPTED TO SEE PATIENT TO DO THE DC PLANNING, PATIENT UNABLE TO ANSWER QUESTIONS AT THIS TIME. WILL ATTEMPT AT ANOTHER TIME Patient Name: NARINDER KNOX Page [phone] at 1355 All edits/amendments must be made on the electronic document DICTATION DATE: 01/29/18 1355 TUBE CUTTER: JOVANA 01/29/18 1355 RPT#: [id number] DC DATE: STATUS: ADM IN [facility] [address] [place] [address] END OF REPORT
--- NOTE | ~2018-01-25 | EC ---
PATIENT:NARINDER KNOX DATE OF SERVICE: 01/25/18 SEX: M MEDICAL RECORD: [id number] DATE OF : [birth year] LOCATION:[place] [address] AGE OF PATIENT: 62 ADMISSION DATE: 01/25/18 REFERRING PHYSICIAN: INTERPRETING PHYSICIAN: GAURAV MCNEILL MD ECHOCARDIOGRAM REPORT ECHO CHARGES 4 ECHO COMPLETE Date: 01/27/18 CLINICAL DIAGNOSIS: CARDIOMYOPATHY ECHOCARDIOGRAPHIC MEASUREMENTS (adult normal given) AC root (d.<3.7cm) 3.9 cm LV Septum d (<1.2 cm> 1.3 cm Valve Excursion 2.4 cm LV Septum (systole) 1.8 cm Left Atria (s.<4.0cm> 4.2 cm LVPW d(<1.2cm) 1.1 cm RV (d.<2.3cm) 2.7 cm LVPW (sytole) 1.7 cm LV diastole(<5.6CM) 7.4 cm MV E-F(>70mm/sec) cm LV systole 5.4 cm LVOT Diameter 2.3 cm MV exc.(>10mm) cm Est.ejection fraction (50-75%) % DOPPLER: LVIT cm/sec A 100 cm/sec E 137 cm/sec LA cm/sec RVSP 40.3 mmHg LVOT cm/sec AOP1/2T m/s Asc. Ao cm/sec RVOT 68.0 cm/sec RA cm/sec PA 86.0 cm/sec AV Gradient Peak mmHg AV Mean mmHg AV Area cm MV Gradient Peak 3.8 mmHg MV Mean 1.4 mmHg MV Area cm COMMENTS: Kennel Hand: Klaudia TREJOOE Tool And Die Maker Level Five: 3 Dr. Deshpande TAPE# PACS Pericardial Effusion N DATE OF SERVICE: Adequate 2-D echo, color flow and spectral Doppler, and M-mode. Borderline LVH. LV internal dimensions are dilated. LV is globally hypokinetic with reduced EF. Estimated EF 20%. Aortic valve is tricuspid. No evidence of stenosis by Doppler interrogation. Left atrium is dilated at 4.2 cm. Mitral valve is thickened. Mild MR. Right-sided chambers are normal. Mild TR by color flow imaging. ECHOCARDIOGRAM REPORT [id number] NARINDER KNOX TRANSINT:[id number] Voice Confirmation ID: [id number] DOCUMENT ID: [id number] GAURAV MCNEILL MD at 2229 CC: [id number] DICTATION DATE: 01/28/181425 BOOKING SUPERVISOR: 01/28/18 1453 ADM IN [facility] [address] [place] [id number]
--- NOTE | ~2018-01-25 | MORECARE ---
CASE MANAGEMENT DISCHARGE SUMMARY PATIENT: NARINDER KNOX UNIT: [id number] ADM DATE: 01/25/18 AGE: 62 : 57 SEX: M ROOM/BED: D.9309 AUTHOR: MAYDADOC PHYSICIAN: REFERRING PHYSICIAN: LEANDRO FRANCOIS MD DATE OF SERVICE: 02/04/18 Discharge Plan Patient Name: NARINDER KNOX Facility: [facility]:[place] : 1955 Planned Disposition: Inpatient Rehab Anticipated Discharge Date: Discharge Date: Expected LOS: Initial Reviewer: [email or web address] Initial Review Date: 01/25/2018 Generated: 02/04/18 5:57 pm Comments DCP- Discharge Planning Updated by [id number]: Raj Diamond on 02/04/18 3:[address] Patient Name: NARINDER KNOX Encounter No: [id number] : 1955 Primary Insurance: MEDICARE A & B Anticipated DC Date: Planned Disposition: Inpatient Rehab External Planned Provider: [facility] INPATIENT REHAB DCP follow-up note: CM MET WITH PT IN ROOM TO DISCUSS DISCHARGE PLANNING AND NEEDS. PT REPORTS LIVING AT HOME INDEPENDENTLY WITH ADULT ROOM MATE. PT HAS NEBULIZER WITH NO MEDICAL EQUIPMENT PROVIDER PREFERENCE. PT HAS NO OUTSIDE SERVICES ASSISTING IN THE HOME. CM DISCUSSED AVAILABILITY OF HOME HEALTH, REHAB SERVICES AND MEDICAL EQUIPMENT. PT REPORTS A NURSE MENTIONED REHAB AT [place] AND PT FEELS HE NEEDS REHAB AND WOULD LIKE REHAB AT [place] INPATIENT IF POSSIBLE. PT REPORTS HE WILL PHONE A FRIEND TO PICK HIM UP FOR DISCHARGE HOME. IMPORTANT MESSAGE FROM MEDICARE PROVIDED AND EXPLAINED. PT WOULD LIKE REHAB AT [place]. CM WILL DISCUSS ORDER FOR INPATIENT REHAB PRESCREENING WITH THE DOCTOR AND WAIT MEDICAL STABILITY FOR DISCHARGE. Raj Diamond, DELLA RYAN DCP- Discharge Planning Updated by [email or web address]: Luisa Pope on 02/02/18 9:[address] Patient Name: NARINDER KNOX Admission Status: ER Accout number: [id number] Admission Date: 01-25-2018 : 1955 Admission Diagnosis:PNEUMONIA, UNSPECIFIED ORGANISM Attending: PRISCILA, Current LOS: 8 Anticipated DC Date: Planned Disposition: Primary Insurance: MEDICARE A & B Discharge Planning Comments: PATIENT IS ON BIPAP, UNABLE TO SPEAK TO HIM AT THIS TIME. ATTEMPTED TO GET IN TOUCH WITH FAMILY BUT NO ANSWER AND NOT IN WAITING ROOM. WILL TRY AGAIN LATER. CM WILL FOLLOW AND ASSIST NEEDED WITH DC PLANNING NEEDS. Alum Plant Supervisor: Luisa Pope DCP- Discharge Planning Updated by [email or web address]: Jannet Mendoza on 01/29/18 12:[address] ATTEMPTED TO SEE PATIENT TO DO THE DC PLANNING, PATIENT UNABLE TO ANSWER QUESTIONS AT THIS TIME. WILL ATTEMPT AT ANOTHER TIME DCPIA - Discharge Planning Initial Assessment Updated by [email or web address]: Raj Diamond on 02/04/18 4:54 pm * Is the patient Alert and Oriented? Yes * How many steps to enter\exit or inside your home? * PCP DR TABATHA LAKE * Pharmacy [facility] [address] * Preadmission Environment Home with Family * ADLs Independent * Equipment Nebulizer * Other Equipment NO MEDICAL EQUIPMENT PROVIDER PREFERENCE * List name and contact numbers for known caregivers / representatives who currently or will assist patient after discharge: PT STATES NO ONE * Verbal permission to speak to the caregivers and representatives has been obtained from the patient. N/A * Community resources currently utilized None * Please name any agencies selected above. NONE * Additional services required to return to the preadmission environment? Yes * Can the patient safely return to the preadmission environment? Yes * Has this patient been hospitalized within the prior 30 days at any hospital? No Coverage Notice Reviewer: [id number] - Raj Diamond Notice Issued Date-Time: 02/04/2018 16:45 Notice Type: IM Discharge Notice Notice Delivered To: Patient Relationship to Patient: Embossed Or Impressed Lettering Painter Name: Delivery Method: HAND - Hand Delivered Jihan Days: Prior Verbal Notification: Recipient Understood Notice: Yes Recipient Signature: Yes Med Rec Note Co-signed by Attending: Coverage Notice Comment: Last DP export: 02/02/18 9:04 Patient Name: NARINDER KNOX Page [id number] at 1658 All edits/amendments must be made on the electronic document DICTATION DATE: 02/04/181656 FISHER EEL SPEAR: JOVANA 02/04/181656 RPT#: [id number] DC DATE: STATUS: ADM IN [facility] [address] [place] [address] END OF REPORT
--- NOTE | ~2018-01-25 | MORECARE ---
CASE MANAGEMENT DISCHARGE SUMMARY PATIENT: NARINDER KNOX UNIT: [id number] ADM DATE: 01/25/18 AGE: 62 : 57 SEX: M ROOM/BED: D.4828 AUTHOR: MAYDADOC PHYSICIAN: REFERRING PHYSICIAN: LEANDRO FRANCOIS MD DATE OF SERVICE: 02/06/18 Discharge Plan Patient Name: NARINDER KNOX Facility: [facility]:[place] : 1955 Planned Disposition: Inpatient Rehab Anticipated Discharge Date: Discharge Date: Expected LOS: Initial Reviewer: [email or web address] Initial Review Date: 01/25/2018 Generated: 02/06/18 1:17 pm Comments DCP- Discharge Planning Updated by [id number]: Raj Diamond on 02/06/18 11:[address] Patient Name: NARINDER KNOX Encounter No: [id number] : 1955 Primary Insurance: MEDICARE A & B Anticipated DC Date: Planned Disposition: Inpatient Rehab External Planned Provider: [facility] DCP follow-up note: CM RECEIVED ORDER FOR INPATIENT REHAB PRESCREENING, SPOKE TO DANIEL OF [facility] IN[facility] WHO WILL REVIEW PT FOR ADMISSION. CM SPOKE TO PT IN ROOM PT WOULD LIKE REHAB AT [facility] IN[facility] WITH GOAL OF RETURNING HOME INDEPENDENTLY. CM WAITING ADMISSION DETERMINATION AND COMPLETION OF INPATIENT REHAB PRESCREENING BY [facility]. DELLA Gamble DCP- Discharge Planning Updated by [id number]: Raj Diamond on 02/04/18 3:[address] Patient Name: NARINDER KNOX Encounter No: [id number] : 1955 Primary Insurance: MEDICARE A & B Anticipated DC Date: Planned Disposition: Inpatient Rehab External Planned Provider: [facility] DCP follow-up note: CM MET WITH PT IN ROOM TO DISCUSS DISCHARGE PLANNING AND NEEDS. PT REPORTS LIVING AT HOME INDEPENDENTLY WITH ADULT ROOM MATE. PT HAS NEBULIZER WITH NO MEDICAL EQUIPMENT PROVIDER PREFERENCE. PT HAS NO OUTSIDE SERVICES ASSISTING IN THE HOME. CM DISCUSSED AVAILABILITY OF HOME HEALTH, REHAB SERVICES AND MEDICAL EQUIPMENT. PT REPORTS A NURSE MENTIONED REHAB AT [place] AND PT FEELS HE NEEDS REHAB AND WOULD LIKE REHAB AT [place] INPATIENT IF POSSIBLE. PT REPORTS HE WILL PHONE A FRIEND TO PICK HIM UP FOR DISCHARGE HOME. IMPORTANT MESSAGE FROM MEDICARE PROVIDED AND EXPLAINED. PT WOULD LIKE REHAB AT [place]. CM WILL DISCUSS ORDER FOR INPATIENT REHAB PRESCREENING WITH THE DOCTOR AND WAIT MEDICAL STABILITY FOR DISCHARGE. Raj Diamond, CASE MANAGEMENT DCP- Discharge Planning Updated by [id number]: Luisa Toshia on 02/02/18 9:[address] Patient Name: NARINDER KNOX Admission Status: ER Accout number: [id number] Admission Date: 01-25-2018 : 1955 Admission Diagnosis:PNEUMONIA, UNSPECIFIED ORGANISM Attending: PRISCILA Current LOS: 8 Anticipated DC Date: Planned Disposition: Primary Insurance: MEDICARE A & B Discharge Planning Comments: PATIENT IS ON BIPAP, UNABLE TO SPEAK TO HIM AT THIS TIME. ATTEMPTED TO GET IN TOUCH WITH FAMILY BUT NO ANSWER AND NOT IN WAITING ROOM. WILL TRY AGAIN LATER. CM WILL FOLLOW AND ASSIST NEEDED WITH DC PLANNING NEEDS. Pet Supplies Salesperson: Luisa Pope DCP- Discharge Planning Updated by [id number]: Jannet Mendoza on 01/29/18 12:[address] ATTEMPTED TO SEE PATIENT TO DO THE DC PLANNING, PATIENT UNABLE TO ANSWER QUESTIONS AT THIS TIME. WILL ATTEMPT AT ANOTHER TIME DCPIA - Discharge Planning Initial Assessment Updated by [id number]: Raj Diamond on 02/04/18 4:54 pm * Is the patient Alert and Oriented? Yes * How many steps to enter\exit or inside your home? * PCP DR TABATHA LAKE * Pharmacy [facility] [address] * Preadmission Environment Home with Family * ADLs Independent * Equipment Nebulizer * Other Equipment NO MEDICAL EQUIPMENT PROVIDER PREFERENCE * List name and contact numbers for known caregivers / representatives who currently or will assist patient after discharge: PT STATES NO ONE * Verbal permission to speak to the caregivers and representatives has been obtained from the patient. N/A * Community resources currently utilized None * Please name any agencies selected above. NONE * Additional services required to return to the preadmission environment? Yes * Can the patient safely return to the preadmission environment? Yes * Has this patient been hospitalized within the prior 30 days at any hospital? No Coverage Notice Reviewer: [id number] - Raj Diamond Notice Issued Date-Time: 02/04/2018 16:45 Notice Type: IM Discharge Notice Notice Delivered To: Patient Relationship to Patient: Type Proof Reproducer Name: Delivery Method: HAND - Hand Delivered Jihan Days: Prior Verbal Notification: Recipient Understood Notice: Yes Recipient Signature: Yes Med Rec Note Co-signed by Attending: Coverage Notice Comment: Last DP export: 02/04/18 3:58 Patient Name: NARINDER KNOX Page 50385 at 1217 All edits/amendments must be made on the electronic document DICTATION DATE: 02/06/181216 MOLYBDENUM STEAMER OPERATOR: JOVANA 02/06/18 1217 RPT#: [id number] DC DATE: STATUS: ADM IN [facility] [address] [place] [address] END OF REPORT
--- NOTE | ~2018-01-25 | MORECARE ---
CASE MANAGEMENT DISCHARGE SUMMARY PATIENT: NARINDER KNOX UNIT: [id number] ADM DATE: 01/25/18 AGE: 62 : 57 SEX: M ROOM/BED: D.2314 AUTHOR: MARICHUY OHARA PHYSICIAN: REFERRING PHYSICIAN: LEANDRO FRANCOIS MD DATE OF SERVICE: 02/02/18 Discharge Plan Patient Name: NARINDER KNOX Facility: [facility]:[place] : 1955 Planned Disposition: Anticipated Discharge Date: Discharge Date: Expected LOS: Initial Reviewer: [email or web address] Initial Review Date: 01/25/2018 Generated: 02/02/18 11:04 am Comments DCP- Discharge Planning Updated by [id number]: Luisa Pope on 02/02/18 9:[address] Patient Name: NARINDER KNOX Admission Status: ER Accout number: [id number] Admission Date: 01-25-2018 : 1955 Admission Diagnosis:PNEUMONIA, UNSPECIFIED ORGANISM Attending: PRISCILA, Current LOS: 8 Anticipated DC Date: Planned Disposition: Primary Insurance: MEDICARE A & B Discharge Planning Comments: PATIENT IS ON BIPAP, UNABLE TO SPEAK TO HIM AT THIS TIME. ATTEMPTED TO GET IN TOUCH WITH FAMILY BUT NO ANSWER AND NOT IN WAITING ROOM. WILL TRY AGAIN LATER. CM WILL FOLLOW AND ASSIST NEEDED WITH DC PLANNING NEEDS. Screwhead Stoner And Polisher: Luisa Pope DCP- Discharge Planning Updated by [email or web address]: Jannet Mendoza on 01/29/18 12:[address] ATTEMPTED TO SEE PATIENT TO DO THE DC PLANNING, PATIENT UNABLE TO ANSWER QUESTIONS AT THIS TIME. WILL ATTEMPT AT ANOTHER TIME Last DP export: 01/29/18 12:55 Patient Name: NARINDER KNOX Page 12913 at 1004 All edits/amendments must be made on the electronic document DICTATION DATE: 02/02/18 1003 CYBER SECURITY ENGINEER: JOVANA 02/02/18 1003 RPT#: [id number] DC DATE: STATUS: ADM IN [place] [id number] [place] [address] END OF REPORT
--- NOTE | ~2018-01-25 | MORECARE ---
CASE MANAGEMENT DISCHARGE SUMMARY PATIENT: NARINDER KNOX UNIT: [id number] ADM DATE: 01/25/18 AGE: 62 : 57 SEX: M ROOM/BED: D.2973 AUTHOR: MAYDA,DOC PHYSICIAN: REFERRING PHYSICIAN: LEANDRO FRANCOIS MD DATE OF SERVICE: 02/07/18 Discharge Plan Patient Name: NARINDER KNOX Facility: [facility]:[place] : 1955 Planned Disposition: Inpatient Rehab Anticipated Discharge Date: 02/07/18 Discharge Date: Expected LOS: 13 Initial Reviewer: [id number] Initial Review Date: 01/25/2018 Generated: 02/07/18 5:57 pm Comments DCP- Discharge Planning Updated by [id number]: Raj Diamond on 02/07/18 3:[address] Patient Name: NARINDER KNOX Encounter No: [id number] : 1955 Primary Insurance: MEDICARE A & B Anticipated DC Date: 02-07-2018 Planned Disposition: Inpatient Rehab External Planned Provider: [facility] DCP follow-up note: CM SPOKE ODELL OF INPATIENT REHAB, THEY PLAN TO ACCEPT PT TODAY FOR REHAB IS STABLE FOR DISCHARGE; CM SPOKE TO AKIN MARCIAL WHO REPORTS PT WILL DISCHARGE TODAY. PT NOTIFIED, IN AGREEMENT WITH DISCHARGE TO INPATIENT REHAB. CM NOTIFIED DANIEL OF [facility] INPATIENT [facility]. [facility] TO CONTACT MED 2 NURSE WITH ROOM NUMBER WHEN READY TO ACCEPT PT AND NURSE REPORT DELLA Gamble DCP- Discharge Planning Updated by [id number]: Raj Diamond on 02/07/18 9:[address] Patient Name: NARINDER KNOX Encounter No: [id number] : 1955 Primary Insurance: MEDICARE A & B Anticipated DC Date: Planned Disposition: Inpatient Rehab External Planned Provider: [facility] DCP follow-up note: CM REVIEWED PT'S CHART, INPATIENT REHAB INDICATES PT NEEDS TO BE PARTICIPATING FOR REHAB CONSIDERATION. CM SPOKE TO PT IN ROOM PT WOULD LIKE REHAB AT [facility] INPATIENT RE[facility] WITH GOAL OF RETURNING HOME INDEPENDENTLY. CM ASKED PT ABOUT REFUSING THERAPY SERVICES. PT DENIES THAT HE REFUSES, HE REPORTS THAT HE HAS BEEN GETTING UP TO THE CHAIR AND HAS BEEN UP IN CHAIR YESTERDAY FOR THREE HOURS BEFORE ASKING TO GO BACK TO BED. PT STATES HE IS DOING ALL THAT HE HAS BEEN ASKED TO DO. CM ENCOURAGED PT TO NOT REFUSE ANY THERAPY AND TO REQUEST THE THERAPIST TO WORK WITH HIM. PT REPORTS UNDERSTANDING. CM DISCUSSED LONG TERM FACILITY AVAILABILITY AND DISCUSSED POSSIBILITY OF SNF REHAB IF DECLINED BY INPATIENT REHAB. PT [facility]OSE [facility], CHOICE SIGNED; PT REPORTS PREFERENCE FOR INPATIENT REHAB AT [facility]. IMPORTANT MESSAGE FROM MEDICARE. CM NOTIFIED RN MIRIAM CLARK WHO NOTIFIED THERAPY. CM CALLED AND SPOKE TO DANIEL OF INPATIENT REHAB WHO INFORMED CM THAT THEY WILL MEET WITH PT TODAY AND THERE IS POSSIBILITY THEY MAY ACCEPT PT INTO REHAB TODAY IF STABLE FOR DISCHARGE TO REHAB. CM WAITING ADMISSION DETERMINATION AND COMPLETION OF INPATIENT REHAB PRESCREENING BY [facility]. Raj Diamond CASE MANAGEMENT DCP- Discharge Planning Updated by [id number]: Raj Diamond on 02/06/18 11:[address] Patient Name: NARINEDR KNOX Encounter No: [id number] : 1955 Primary Insurance: MEDICARE A & B Anticipated DC Date: Planned Disposition: Inpatient Rehab External Planned Provider: [facility] DCP follow-up note: CM RECEIVED ORDER FOR INPATIENT REHAB PRESCREENING, SPOKE TO DANIEL OF [facility] INPAT[facility] WHO WILL REVIEW PT FOR ADMISSION. CM SPOKE TO PT IN ROOM PT WOULD LIKE REHAB AT [facility] INPATIENT REHAB WITH GOAL OF RETURNING HOME INDEPENDENTLY. CM WAITING ADMISSION DETERMINATION AND COMPLETION OF INPATIENT REHAB PRESCREENING BY [facility] INPAT[facility]. Raj Diamond CASE SHELBY DCP- Discharge Planning Updated by [email or web address]: Raj Diamond on 02/04/18 3:[address] Patient Name: NARINDER KNOX Encounter No: [id number] : 1955 Primary Insurance: MEDICARE A & B Anticipated DC Date: Planned Disposition: Inpatient Rehab External Planned Provider: [facility] DCP follow-up note: CM MET WITH PT IN ROOM TO DISCUSS DISCHARGE PLANNING AND NEEDS. PT REPORTS LIVING AT HOME INDEPENDENTLY WITH ADULT ROOM MATE. PT HAS NEBULIZER WITH NO MEDICAL EQUIPMENT PROVIDER PREFERENCE. PT HAS NO OUTSIDE SERVICES ASSISTING IN THE HOME. CM DISCUSSED AVAILABILITY OF HOME HEALTH, REHAB SERVICES AND MEDICAL EQUIPMENT. PT REPORTS A NURSE MENTIONED REHAB AT [facility] AND PT FEELS HE NEEDS REHAB AND WOULD LIKE REHAB AT [facility] INPATIENT IF POSSIBLE. PT REPORTS HE WILL PHONE A FRIEND TO PICK HIM UP FOR DISCHARGE HOME. IMPORTANT MESSAGE FROM MEDICARE PROVIDED AND EXPLAINED. PT WOULD LIKE REHAB AT [facility]. CM WILL DISCUSS ORDER FOR INPATIENT REHAB PRESCREENING WITH THE DOCTOR AND WAIT MEDICAL STABILITY FOR DISCHARGE. Raj Diamond, CASE MANAGEMENT DCP- Discharge Planning Updated by [id number]: Luisa Pope on 02/02/18 9:[address] Patient Name: NARINDER KNOX Admission Status: ER Accout number: [id number] Admission Date: 01-25-2018 : 1955 Admission Diagnosis:PNEUMONIA, UNSPECIFIED ORGANISM Attending: PRISCILA Current LOS: 8 Anticipated DC Date: Planned Disposition: Primary Insurance: MEDICARE A & B Discharge Planning Comments: PATIENT IS ON BIPAP, UNABLE TO SPEAK TO HIM AT THIS TIME. ATTEMPTED TO GET IN TOUCH WITH FAMILY BUT NO ANSWER AND NOT IN WAITING ROOM. WILL TRY AGAIN LATER. CM WILL FOLLOW AND ASSIST NEEDED WITH DC PLANNING NEEDS. Paper Maker: Luisa Pope DCP- Discharge Planning Updated by [email or web address]: Jannet Mendoza on 01/29/18 12:[address] ATTEMPTED TO SEE PATIENT TO DO THE DC PLANNING, PATIENT UNABLE TO ANSWER QUESTIONS AT THIS TIME. WILL ATTEMPT AT ANOTHER TIME DCPIA - Discharge Planning Initial Assessment Updated by [id number]: Raj Diamond on 02/04/18 4:54 pm * Is the patient Alert and Oriented? Yes * How many steps to enter\exit or inside your home? * PCP DR TABATHA LAKE * Pharmacy [facility] [address] * Preadmission Environment Home with Family * ADLs Independent * Equipment Nebulizer * Other Equipment NO MEDICAL EQUIPMENT PROVIDER PREFERENCE * List name and contact numbers for known caregivers / representatives who currently or will assist patient after discharge: PT STATES NO ONE * Verbal permission to speak to the caregivers and representatives has been obtained from the patient. N/A * Community resources currently utilized None * Please name any agencies selected above. NONE * Additional services required to return to the preadmission environment? Yes * Can the patient safely return to the preadmission environment? Yes * Has this patient been hospitalized within the prior 30 days at any hospital? No Coverage Notice Reviewer: CHARISSE Diamond Notice Issued Date-Time: 02/04/2018 16:45 Notice Type: IM Discharge Notice Notice Delivered To: Patient Relationship to Patient: Tire Assembler Name: Delivery Method: HAND - Hand Delivered Jihan Days: Prior Verbal Notification: Recipient Understood Notice: Yes Recipient Signature: Yes Med Rec Note Co-signed by Attending: Coverage Notice Comment: Reviewer: CHARISSE Diamond Notice Issued Date-Time: 02/07/2018 10:05 Notice Type: IM Discharge Notice Notice Delivered To: Patient Relationship to Patient: Tire Assembler Name: Delivery Method: HAND - Hand Delivered Jihan Days: Prior Verbal Notification: Recipient Understood Notice: Yes Recipient Signature: Yes Med Rec Note Co-signed by Attending: Coverage Notice Comment: Reviewer: CHARISSE Diamond Notice Issued Date-Time: 02/07/2018 10:05 Notice Type: Patient Choice Letter Notice Delivered To: Patient Relationship to Patient: Tire Assembler Name: Delivery Method: HAND - Hand Delivered Jihan Days: Prior Verbal Notification: Recipient Understood Notice: Yes Recipient Signature: Yes Med Rec Note Co-signed by Attending: Coverage Notice Comment: [facility] Last DP export: 02/07/18 9:34 a Patient Name: NARINDER KNOX Page 73547 at 1657 All edits/amendments must be made on the electronic document DICTATION DATE: 02/07/181655 FLORAL ARTIST: JOVANA 02/07/181655 RPT#: [id number] DC DATE: STATUS: ADM IN [facility] [address] [place] [address] END OF REPORT
[~2018-01-25 09:30] MED LIST changes: +CARDIZEM CD180 MG PO
[2018-01-25 10:11] LABS: BASOPHILS 0.2 % (0-2); EOSINOPHILS 0 % (0-7); HEMATOCRIT 34.5 % (42.0-54.0); HEMOGLOBIN 11.9 g/dL (13.5-17.5); IMMATURE GRANULOCYTES 0.7 % (0-5); LYMPHOCYTES 8.8 % (15-50); MCH 36.3 pg (26.0-34.0); MCHC 34.5 g/dL (31.0-37.0); MCV 105.2 fL (80.0-100.0); MEAN PLATELET VOLUME 10.5 fL (7.4-10.4); MONOCYTES 12.5 % (2-11); NEUTROPHILS 77.8 % (40-80); PLATELET COUNT 81 10x3/uL (130-400); RBC 3.28 10x6/uL (4.20-6.10); RDW 16.4 % (11.5-14.5); WBC 5.5 10x3/uL (4.8-10.8)
[2018-01-25 10:30] LABS: APPEARANCE CLEAR (CLEAR); BILIRUBIN NEGATIVE (NEGATIVE); COLOR AMBER (YELLOW); GLUCOSE NEGATIVE (NEGATIVE); KETONE LARGE mg/dL (NEGATIVE); NITRITE NEGATIVE (NEGATIVE); PROTEIN NEGATIVE (NEGATIVE); UROBILINOGEN NORMAL (NORMAL)
[2018-01-25 10:32] LABS: PLATELET ESTIMATE DECREASED
[2018-01-25 10:37] LABS: INR 1.08 (0.85-1.17); PROTIME 13.6 SECONDS (11.6-15.0)
[2018-01-25 10:39] LABS: D-DIMER-QUANTITATIVE 1.97 ug/mLFEU (0.20-0.54)
[2018-01-25 10:49] LABS: ALBUMIN 3.3 g/dL (3.4-5.0); ALKALINE PHOSPHATASE 36 U/L (46-116); ALT (SGPT) 91 U/L (10-68); CALC OSMOLALITY 285 mosm/kg (275-300); CALCIUM 9.3 mg/dL (8.5-10.1); CARBON DIOXIDE 32.8 mmol/L (21.0-32.0); CHLORIDE - SERUM 91 mmol/L (98-107); CREATININE - SERUM 1.1 mg/dL (0.6-1.3); GLUCOSE 89 mg/dL (74-106); POTASSIUM - SERUM 4.1 mmol/L (3.5-5.1); PROTEIN - SERUM 5.9 g/dL (6.4-8.2); SODIUM 137 mmol/L (136-145); UREA NITROGEN 50 mg/dL (7-18); eGFR NON AFRICAN AMERICAN 72 mL/min (90-120)
[2018-01-25 11:14] LABS: CKMB 8.3 U/L (0.0-3.6); CREATINE KINASE 645 UL (21-232); LIPASE 251 U/L (73-393); MAGNESIUM - SERUM 1.9 mg/dL (1.8-2.4); PRO BNP 22114 pg/mL (0-125); THYROID STIMULATING HORMONE 0.97 uIU/mL (0.36-3.74)
[2018-01-25 11:31] LABS: TROPONIN-I 0.062 ng/mL (0.000-0.060)
[2018-01-25 13:01] VITALS: BP 133/72
[2018-01-25] MEDS ORDERED: ADVIL200 MG PO (14:51)
[2018-01-25 16:36] VITALS: BP 128/60
[2018-01-25 20:05] VITALS: BP 101/59
[2018-01-25 23:40] VITALS: BP 101/59; BMI 19.2
[2018-01-26 05:25] VITALS: BP 113/70
[2018-01-26 05:55] LABS: BASOPHILS 0 % (0-2); EOSINOPHILS 0 % (0-7); HEMATOCRIT 31.6 % (42.0-54.0); HEMOGLOBIN 10.6 g/dL (13.5-17.5); IMMATURE GRANULOCYTES 0.7 % (0-5); LYMPHOCYTES 13.2 % (15-50); MCH 35.9 pg (26.0-34.0); MCHC 33.5 g/dL (31.0-37.0); MCV 107.1 fL (80.0-100.0); MEAN PLATELET VOLUME 10.1 fL (7.4-10.4); MONOCYTES 10.8 % (2-11); NEUTROPHILS 75.3 % (40-80); RBC 2.95 10x6/uL (4.20-6.10); RDW 16.6 % (11.5-14.5); WBC 4.2 10x3/uL (4.8-10.8)
[2018-01-26 06:01] LABS: PLATELET COUNT 64 10x3/uL (130-400)
[2018-01-26 06:34] LABS: ALBUMIN 2.6 g/dL (3.4-5.0); ALKALINE PHOSPHATASE 27 U/L (46-116); BILIRUBIN - TOTAL 1.82 mg/dL (0.2-1.3); C-REACTIVE PROTEIN 6.7 mg/dL (0.0-0.9); CALCIUM 8.3 mg/dL (8.5-10.1); CARBON DIOXIDE 36.4 mmol/L (21.0-32.0); CHLORIDE - SERUM 99 mmol/L (98-107); GLUCOSE 129 mg/dL (74-106); POTASSIUM - SERUM 3.5 mmol/L (3.5-5.1); PROTEIN - SERUM 5.3 g/dL (6.4-8.2); SODIUM 138 mmol/L (136-145); TROPONIN-I 0.059 ng/mL (0.000-0.060)
[2018-01-26 06:38] LABS: ALT (SGPT) 67 U/L (10-68); CALC OSMOLALITY 283 mosm/kg (275-300); CREATININE - SERUM 0.8 mg/dL (0.6-1.3); UREA NITROGEN 30 mg/dL (7-18); eGFR NON AFRICAN AMERICAN > 90 mL/min (90-120)
[2018-01-26 08:24] VITALS: BP 90/51
[2018-01-26 11:40] VITALS: BP 90/51
[2018-01-26 14:21] VITALS: BP 71/50
[2018-01-26 14:21] LABS: CKMB 4.5 U/L (0.0-3.6); CREATINE KINASE 156 UL (21-232); TROPONIN-I 0.049 ng/mL (0.000-0.060)
[2018-01-26 16:57] LABS: APTT 27.2 SECONDS (22.8-39.4); INR 1.15 (0.85-1.17); PROTIME 14.3 SECONDS (11.6-15.0)
[2018-01-26 16:59] LABS: BASOPHILS 0.3 % (0-2); EOSINOPHILS 0 % (0-7); HEMATOCRIT 29.7 % (42.0-54.0); HEMOGLOBIN 9.9 g/dL (13.5-17.5); IMMATURE GRANULOCYTES 1.1 % (0-5); LYMPHOCYTES 15.3 % (15-50); MCH 36.3 pg (26.0-34.0); MCHC 33.3 g/dL (31.0-37.0); MCV 108.8 fL (80.0-100.0); MEAN PLATELET VOLUME 10.1 fL (7.4-10.4); MONOCYTES 13.4 % (2-11); NEUTROPHILS 69.9 % (40-80); PLATELET COUNT 67 10x3/uL (130-400); RBC 2.73 10x6/uL (4.20-6.10); RDW 16.4 % (11.5-14.5); WBC 3.7 10x3/uL (4.8-10.8)
[2018-01-26 20:01] VITALS: BP 96/62
[2018-01-27] VITALS (15 sets, daily range): BP systolic 50–130; BP diastolic 33–78; Ht 175.3 cm
[2018-01-27 05:36] LABS: BASOPHILS 0.3 % (0-2); EOSINOPHILS 0.3 % (0-7); HEMATOCRIT 31.2 % (42.0-54.0); HEMOGLOBIN 10.1 g/dL (13.5-17.5); IMMATURE GRANULOCYTES 1.3 % (0-5); LYMPHOCYTES 17.5 % (15-50); MCH 35.8 pg (26.0-34.0); MCHC 32.4 g/dL (31.0-37.0); MCV 110.6 fL (80.0-100.0); MEAN PLATELET VOLUME 10.6 fL (7.4-10.4); MONOCYTES 16.6 % (2-11); PLATELET COUNT 64 10x3/uL (130-400); RBC 2.82 10x6/uL (4.20-6.10); RDW 16.2 % (11.5-14.5); WBC 3.1 10x3/uL (4.8-10.8)
[2018-01-27 06:03] LABS: ALBUMIN 2.4 g/dL (3.4-5.0); ALKALINE PHOSPHATASE 23 U/L (46-116); ALT (SGPT) 58 U/L (10-68); BILIRUBIN - TOTAL 1.04 mg/dL (0.2-1.3); CALCIUM 7.7 mg/dL (8.5-10.1); CARBON DIOXIDE 37.5 mmol/L (21.0-32.0); CHLORIDE - SERUM 100 mmol/L (98-107); CREATININE - SERUM 0.7 mg/dL (0.6-1.3); GLUCOSE 119 mg/dL (74-106); POTASSIUM - SERUM 3.3 mmol/L (3.5-5.1); PROTEIN - SERUM 5.1 g/dL (6.4-8.2); SODIUM 138 mmol/L (136-145); eGFR NON AFRICAN AMERICAN > 90 mL/min (90-120)
[2018-01-27 06:06] LABS: CALC OSMOLALITY 279 mosm/kg (275-300); UREA NITROGEN 22 mg/dL (7-18)
[2018-01-28] VITALS (7 sets, daily range): BP systolic 92–115; BP diastolic 54–75
[2018-01-28 05:21] LABS: ALBUMIN 2.6 g/dL (3.4-5.0); ALKALINE PHOSPHATASE 28 U/L (46-116); ALT (SGPT) 57 U/L (10-68); BILIRUBIN - TOTAL 0.82 mg/dL (0.2-1.3); CALC OSMOLALITY 282 mosm/kg (275-300); CARBON DIOXIDE 33.8 mmol/L (21.0-32.0); CHLORIDE - SERUM 101 mmol/L (98-107); CREATININE - SERUM 0.8 mg/dL (0.6-1.3); FERRITIN 233 ng/mL (3-244); GLUCOSE 151 mg/dL (74-106); SODIUM 139 mmol/L (136-145); THYROID STIMULATING HORMONE 2.66 uIU/mL (0.36-3.74); UREA NITROGEN 19 mg/dL (7-18); eGFR NON AFRICAN AMERICAN > 90 mL/min (90-120)
[2018-01-28 05:22] LABS: HEMATOCRIT 32.6 % (42.0-54.0); HEMOGLOBIN 10.6 g/dL (13.5-17.5); MCH 36.1 pg (26.0-34.0); MCHC 32.5 g/dL (31.0-37.0); MCV 110.9 fL (80.0-100.0); MEAN PLATELET VOLUME 9.8 fL (7.4-10.4); PLATELET COUNT 58 10x3/uL (130-400); RBC 2.94 10x6/uL (4.20-6.10); RDW 15.9 % (11.5-14.5)
[2018-01-28 05:31] LABS: POTASSIUM - SERUM 3.9 mmol/L (3.5-5.1)
[2018-01-28 05:44] LABS: LYMPHOCYTES 24 % (15-50); MONOCYTES 5 % (2-11); NEUTROPHILS 67 % (40-80); PLATELET ESTIMATE DECREASED
[2018-01-28 20:08] LABS: ACID FAST SMEAR Negative (()); AFB SPECIMEN PROCESSING Concentration (())
[2018-01-29] VITALS (13 sets, daily range): BP systolic 91–117; BP diastolic 55–96
[2018-01-29 04:41] LABS: BASOPHILS 0 % (0-2); EOSINOPHILS 0 % (0-7); HEMATOCRIT 33.5 % (42.0-54.0); IMMATURE GRANULOCYTES 1.4 % (0-5); LYMPHOCYTES 19.6 % (15-50); MCH 36.1 pg (26.0-34.0); MCHC 32.8 g/dL (31.0-37.0); MCV 109.8 fL (80.0-100.0); MEAN PLATELET VOLUME 10.4 fL (7.4-10.4); MONOCYTES 24.9 % (2-11); NEUTROPHILS 54.1 % (40-80); RBC 3.05 10x6/uL (4.20-6.10); RDW 15.3 % (11.5-14.5); WBC 2.8 10x3/uL (4.8-10.8)
[2018-01-29 04:48] LABS: PLATELET COUNT 78 10x3/uL (130-400)
[2018-01-29 05:06] LABS: ALBUMIN 2.4 g/dL (3.4-5.0); ALKALINE PHOSPHATASE 23 U/L (46-116); ALT (SGPT) 50 U/L (10-68); BILIRUBIN - TOTAL 0.77 mg/dL (0.2-1.3); CALC OSMOLALITY 280 mosm/kg (275-300); CALCIUM 7.9 mg/dL (8.5-10.1); CARBON DIOXIDE 34.7 mmol/L (21.0-32.0); CHLORIDE - SERUM 100 mmol/L (98-107); CREATININE - SERUM 0.7 mg/dL (0.6-1.3); GLUCOSE 166 mg/dL (74-106); PROTEIN - SERUM 5.2 g/dL (6.4-8.2); SODIUM 138 mmol/L (136-145); UREA NITROGEN 16 mg/dL (7-18); eGFR NON AFRICAN AMERICAN > 90 mL/min (90-120)
[2018-01-29 09:17] LABS: FOLATE (FOLIC ACID) - SERUM 10.7 ng/mL (>3.0)
[2018-01-29 12:17] LABS: HEPATITIS C ANTIBODY >11.0 (0.0-0.9)
[2018-01-29 13:21] LABS: FUNGUS STAIN Final report (())
[2018-01-30] VITALS (25 sets, daily range): BP systolic 81–154; BP diastolic 49–89
[2018-01-30 04:41] LABS: BASOPHILS 0 % (0-2); EOSINOPHILS 0 % (0-7); HEMATOCRIT 31.4 % (42.0-54.0); HEMOGLOBIN 10.6 g/dL (13.5-17.5); IMMATURE GRANULOCYTES 1.2 % (0-5); LYMPHOCYTES 10.4 % (15-50); MCH 36.7 pg (26.0-34.0); MCHC 33.8 g/dL (31.0-37.0); MCV 108.7 fL (80.0-100.0); MEAN PLATELET VOLUME 9.8 fL (7.4-10.4); MONOCYTES 14.2 % (2-11); NEUTROPHILS 74.2 % (40-80); RBC 2.89 10x6/uL (4.20-6.10); RDW 15.2 % (11.5-14.5); WBC 2.6 10x3/uL (4.8-10.8)
[2018-01-30 04:53] LABS: PLATELET COUNT 107 10x3/uL (130-400)
[2018-01-30 05:12] LABS: ALBUMIN 2.2 g/dL (3.4-5.0); ALKALINE PHOSPHATASE 23 U/L (46-116); ALT (SGPT) 41 U/L (10-68); BILIRUBIN - TOTAL 0.77 mg/dL (0.2-1.3); CALC OSMOLALITY 283 mosm/kg (275-300); CALCIUM 7.8 mg/dL (8.5-10.1); CARBON DIOXIDE 38.4 mmol/L (21.0-32.0); CHLORIDE - SERUM 101 mmol/L (98-107); CREATININE - SERUM 0.6 mg/dL (0.6-1.3); GLUCOSE 132 mg/dL (74-106); MAGNESIUM - SERUM 1.3 mg/dL (1.8-2.4); PHOSPHOROUS 3.6 mg/dL (2.5-4.9); POTASSIUM - SERUM 3.8 mmol/L (3.5-5.1); PRO BNP 10946 pg/mL (0-125); PROTEIN - SERUM 4.8 g/dL (6.4-8.2); SODIUM 141 mmol/L (136-145); UREA NITROGEN 16 mg/dL (7-18); eGFR NON AFRICAN AMERICAN > 90 mL/min (90-120)
[2018-01-31] VITALS (24 sets, daily range): BP systolic 89–116; BP diastolic 53–81
[2018-01-31 04:04] LABS: BASOPHILS 0 % (0-2); EOSINOPHILS 0 % (0-7); HEMATOCRIT 29.2 % (42.0-54.0); HEMOGLOBIN 9.9 g/dL (13.5-17.5); IMMATURE GRANULOCYTES 0.5 % (0-5); LYMPHOCYTES 13.1 % (15-50); MCH 36.1 pg (26.0-34.0); MCHC 33.9 g/dL (31.0-37.0); MONOCYTES 21.5 % (2-11); NEUTROPHILS 64.9 % (40-80); PLATELET COUNT 119 10x3/uL (130-400); RBC 2.74 10x6/uL (4.20-6.10); RDW 15.3 % (11.5-14.5)
[2018-01-31 04:13] LABS: MCV 106.6 fL (80.0-100.0); WBC 4.3 10x3/uL (4.8-10.8)
[2018-01-31 04:19] LABS: ALBUMIN 2.1 g/dL (3.4-5.0); ALKALINE PHOSPHATASE 20 U/L (46-116); ALT (SGPT) 34 U/L (10-68); BILIRUBIN - TOTAL 0.49 mg/dL (0.2-1.3); CALCIUM 8.1 mg/dL (8.5-10.1); CARBON DIOXIDE 38.3 mmol/L (21.0-32.0); PROTEIN - SERUM 4.7 g/dL (6.4-8.2)
[2018-01-31 04:28] LABS: CHLORIDE - SERUM 100 mmol/L (98-107); POTASSIUM - SERUM 3.6 mmol/L (3.5-5.1); SODIUM 140 mmol/L (136-145)
[2018-01-31 04:39] LABS: CALC OSMOLALITY 287 mosm/kg (275-300); CREATININE - SERUM 0.9 mg/dL (0.6-1.3); GLUCOSE 181 mg/dL (74-106); UREA NITROGEN 23 mg/dL (7-18); eGFR NON AFRICAN AMERICAN > 90 mL/min (90-120)
[2018-01-31 12:16] LABS: CRYPTOCOCCUS AG - SERUM Negative (Negative)
[2018-01-31 15:24] LABS: HISTOPLASMA GAL MANNAN AG SER <0.5 (<0.5 ng/mL)
[2018-02-01] VITALS (24 sets, daily range): BP systolic 86–143; BP diastolic 52–93
[2018-02-01 06:47] LABS: BASOPHILS 0 % (0-2); EOSINOPHILS 0 % (0-7); HEMATOCRIT 29.8 % (42.0-54.0); HEMOGLOBIN 10.1 g/dL (13.5-17.5); IMMATURE GRANULOCYTES 0.3 % (0-5); LYMPHOCYTES 11.2 % (15-50); MCH 35.9 pg (26.0-34.0); MCHC 33.9 g/dL (31.0-37.0); MEAN PLATELET VOLUME 8.8 fL (7.4-10.4); MONOCYTES 12.6 % (2-11); NEUTROPHILS 75.9 % (40-80); RBC 2.81 10x6/uL (4.20-6.10); RDW 15.5 % (11.5-14.5); WBC 3.7 10x3/uL (4.8-10.8)
[2018-02-01 06:51] LABS: PLATELET COUNT 147 10x3/uL (130-400)
[2018-02-01 07:23] LABS: CALC OSMOLALITY 285 mosm/kg (275-300); CALCIUM 8.1 mg/dL (8.5-10.1); CARBON DIOXIDE 36.6 mmol/L (21.0-32.0); CHLORIDE - SERUM 102 mmol/L (98-107); CREATININE - SERUM 0.7 mg/dL (0.6-1.3); GLUCOSE 165 mg/dL (74-106); MAGNESIUM - SERUM 1.9 mg/dL (1.8-2.4); PHOSPHOROUS 2.4 mg/dL (2.5-4.9); POTASSIUM - SERUM 3.4 mmol/L (3.5-5.1); SODIUM 140 mmol/L (136-145); UREA NITROGEN 21 mg/dL (7-18); eGFR NON AFRICAN AMERICAN > 90 mL/min (90-120)
[2018-02-01 18:27] LABS: MAGNESIUM - SERUM 2.1 mg/dL (1.8-2.4); PHOSPHOROUS 2.9 mg/dL (2.5-4.9); POTASSIUM - SERUM 3.6 mmol/L (3.5-5.1)
[2018-02-02] VITALS (24 sets, daily range): BP systolic 92–135; BP diastolic 56–116
[2018-02-02 02:44] LABS: BASOPHILS 0 % (0-2); EOSINOPHILS 0 % (0-7); HEMATOCRIT 33.3 % (42.0-54.0); HEMOGLOBIN 11.2 g/dL (13.5-17.5); IMMATURE GRANULOCYTES 0.5 % (0-5); MCHC 33.6 g/dL (31.0-37.0); MCV 107.1 fL (80.0-100.0); MEAN PLATELET VOLUME 9.4 fL (7.4-10.4); MONOCYTES 10.2 % (2-11); NEUTROPHILS 82.3 % (40-80); PLATELET COUNT 196 10x3/uL (130-400); RBC 3.11 10x6/uL (4.20-6.10); RDW 15.5 % (11.5-14.5); WBC 4.4 10x3/uL (4.8-10.8)
[2018-02-02 02:51] LABS: CALCIUM 8.3 mg/dL (8.5-10.1); CHLORIDE - SERUM 101 mmol/L (98-107); CREATININE - SERUM 0.8 mg/dL (0.6-1.3); POTASSIUM - SERUM 3.7 mmol/L (3.5-5.1); SODIUM 140 mmol/L (136-145); UREA NITROGEN 21 mg/dL (7-18); eGFR NON AFRICAN AMERICAN > 90 mL/min (90-120)
[2018-02-02 02:54] LABS: CALC OSMOLALITY 290 mosm/kg (275-300); GLUCOSE 268 mg/dL (74-106); PHOSPHOROUS 3.8 mg/dL (2.5-4.9)
[2018-02-03] VITALS (16 sets, daily range): BP systolic 95–134; BP diastolic 51–87
[2018-02-03 03:41] LABS: BASOPHILS 0 % (0-2); EOSINOPHILS 0 % (0-7); HEMATOCRIT 33.3 % (42.0-54.0); IMMATURE GRANULOCYTES 0.3 % (0-5); LYMPHOCYTES 8.7 % (15-50); MCH 35.6 pg (26.0-34.0); MCV 107.8 fL (80.0-100.0); MEAN PLATELET VOLUME 9.6 fL (7.4-10.4); MONOCYTES 9.8 % (2-11); NEUTROPHILS 81.2 % (40-80); RBC 3.09 10x6/uL (4.20-6.10); RDW 15.5 % (11.5-14.5)
[2018-02-03 03:42] LABS: PLATELET COUNT 263 10x3/uL (130-400); WBC 6.1 10x3/uL (4.8-10.8)
[2018-02-03 04:00] LABS: CALC OSMOLALITY 296 mosm/kg (275-300); CALCIUM 8.3 mg/dL (8.5-10.1); CARBON DIOXIDE 37.7 mmol/L (21.0-32.0); CHLORIDE - SERUM 104 mmol/L (98-107); CREATININE - SERUM 0.8 mg/dL (0.6-1.3); GLUCOSE 254 mg/dL (74-106); MAGNESIUM - SERUM 1.7 mg/dL (1.8-2.4); PHOSPHOROUS 3.8 mg/dL (2.5-4.9); POTASSIUM - SERUM 3.5 mmol/L (3.5-5.1); PRO BNP 4693 pg/mL (0-125); SODIUM 143 mmol/L (136-145); UREA NITROGEN 21 mg/dL (7-18); eGFR NON AFRICAN AMERICAN > 90 mL/min (90-120)
[2018-02-04 00:57] VITALS: BP 106/57
[2018-02-04 05:58] VITALS: BP 104/51
[2018-02-04 06:29] LABS: ALKALINE PHOSPHATASE 25 U/L (46-116); ALT (SGPT) 32 U/L (10-68); BILIRUBIN - TOTAL 0.33 mg/dL (0.2-1.3); CALC OSMOLALITY 298 mosm/kg (275-300); CALCIUM 8.2 mg/dL (8.5-10.1); CARBON DIOXIDE 36.7 mmol/L (21.0-32.0); CHLORIDE - SERUM 103 mmol/L (98-107); CREATININE - SERUM 0.8 mg/dL (0.6-1.3); GLUCOSE 304 mg/dL (74-106); MAGNESIUM - SERUM 1.7 mg/dL (1.8-2.4); POTASSIUM - SERUM 3.8 mmol/L (3.5-5.1); PROTEIN - SERUM 5.5 g/dL (6.4-8.2); SODIUM 143 mmol/L (136-145); UREA NITROGEN 22 mg/dL (7-18); eGFR NON AFRICAN AMERICAN > 90 mL/min (90-120)
[2018-02-04 06:51] LABS: BASOPHILS 0 % (0-2); EOSINOPHILS 0 % (0-7); HEMATOCRIT 34.4 % (42.0-54.0); HEMOGLOBIN 11.4 g/dL (13.5-17.5); IMMATURE GRANULOCYTES 0.1 % (0-5); LYMPHOCYTES 8.6 % (15-50); MCH 36.1 pg (26.0-34.0); MCHC 33.1 g/dL (31.0-37.0); MCV 108.9 fL (80.0-100.0); MEAN PLATELET VOLUME 9.7 fL (7.4-10.4); MONOCYTES 8.6 % (2-11); NEUTROPHILS 82.7 % (40-80); PLATELET COUNT 280 10x3/uL (130-400); RBC 3.16 10x6/uL (4.20-6.10); RDW 15.6 % (11.5-14.5); WBC 7.4 10x3/uL (4.8-10.8)
[2018-02-04 08:33] VITALS: BP 130/74
[2018-02-04 11:12] VITALS: BP 132/72
[2018-02-04 15:48] VITALS: BP 127/72
[2018-02-04 20:00] VITALS: BP 102/70
[2018-02-05] VITALS: BP 112/63; BP 137/84
[2018-02-05 04:00] VITALS: BP 100/64
[2018-02-05 04:52] LABS: BASOPHILS 0 % (0-2); EOSINOPHILS 0 % (0-7); HEMATOCRIT 33.5 % (42.0-54.0); HEMOGLOBIN 11.2 g/dL (13.5-17.5); IMMATURE GRANULOCYTES 0.3 % (0-5); LYMPHOCYTES 8.2 % (15-50); MCH 35.8 pg (26.0-34.0); MCHC 33.4 g/dL (31.0-37.0); MEAN PLATELET VOLUME 9.7 fL (7.4-10.4); MONOCYTES 8.2 % (2-11); NEUTROPHILS 83.3 % (40-80); PLATELET COUNT 233 10x3/uL (130-400); RBC 3.13 10x6/uL (4.20-6.10); RDW 15.2 % (11.5-14.5); WBC 7.1 10x3/uL (4.8-10.8)
[2018-02-05 05:20] LABS: CALC OSMOLALITY 293 mosm/kg (275-300); CALCIUM 8.7 mg/dL (8.5-10.1); CARBON DIOXIDE 34.4 mmol/L (21.0-32.0); CHLORIDE - SERUM 102 mmol/L (98-107); CREATININE - SERUM 0.7 mg/dL (0.6-1.3); GLUCOSE 318 mg/dL (74-106); POTASSIUM - SERUM 3.8 mmol/L (3.5-5.1); SODIUM 140 mmol/L (136-145); UREA NITROGEN 22 mg/dL (7-18); eGFR NON AFRICAN AMERICAN > 90 mL/min (90-120)
[2018-02-05 08:30] VITALS: BP 112/71
[2018-02-05 11:28] VITALS: BP 119/77
[2018-02-05 16:48] VITALS: BP 110/68
[2018-02-05 20:00] VITALS: BP 103/67
[2018-02-06] VITALS (7 sets, daily range): BP systolic 108–123; BP diastolic 59–91
[2018-02-06 06:06] LABS: BASOPHILS 0 % (0-2); EOSINOPHILS 0 % (0-7); HEMOGLOBIN 10.6 g/dL (13.5-17.5); IMMATURE GRANULOCYTES 0.2 % (0-5); LYMPHOCYTES 6.2 % (15-50); MCH 35.6 pg (26.0-34.0); MCHC 33.1 g/dL (31.0-37.0); MCV 107.4 fL (80.0-100.0); MEAN PLATELET VOLUME 9.6 fL (7.4-10.4); MONOCYTES 7.1 % (2-11); NEUTROPHILS 86.5 % (40-80); PLATELET COUNT 226 10x3/uL (130-400); RBC 2.98 10x6/uL (4.20-6.10); RDW 15.2 % (11.5-14.5)
[2018-02-06 06:25] LABS: CALC OSMOLALITY 296 mosm/kg (275-300); CALCIUM 8.6 mg/dL (8.5-10.1); CARBON DIOXIDE 38.3 mmol/L (21.0-32.0); CHLORIDE - SERUM 100 mmol/L (98-107); CREATININE - SERUM 0.7 mg/dL (0.6-1.3); GLUCOSE 306 mg/dL (74-106); MAGNESIUM - SERUM 1.9 mg/dL (1.8-2.4); POTASSIUM - SERUM 3.7 mmol/L (3.5-5.1); SODIUM 141 mmol/L (136-145); UREA NITROGEN 24 mg/dL (7-18); eGFR NON AFRICAN AMERICAN > 90 mL/min (90-120)
[2018-02-06 06:36] LABS: WBC 4.5 10x3/uL (4.8-10.8)
[2018-02-06 06:51] LABS: APTT 24.1 SECONDS (22.8-39.4); INR 1.13 (0.85-1.17); PROTIME 14.1 SECONDS (11.6-15.0)
[2018-02-06 12:42] LABS: MACROPHAGES BF 16 %; MESOTHELIALS BF 2 %; NEUT - BF 46 %
[2018-02-07] VITALS: BP 108/64
[2018-02-07 04:00] VITALS: BP 139/88
[2018-02-07 07:19] LABS: BASOPHILS 0 % (0-2); EOSINOPHILS 0 % (0-7); HEMATOCRIT 34.3 % (42.0-54.0); HEMOGLOBIN 11.4 g/dL (13.5-17.5); IMMATURE GRANULOCYTES 0.5 % (0-5); LYMPHOCYTES 7.8 % (15-50); MCH 35.8 pg (26.0-34.0); MCHC 33.2 g/dL (31.0-37.0); MCV 107.9 fL (80.0-100.0); MEAN PLATELET VOLUME 9.6 fL (7.4-10.4); MONOCYTES 10.4 % (2-11); NEUTROPHILS 81.3 % (40-80); PLATELET COUNT 193 10x3/uL (130-400); RBC 3.18 10x6/uL (4.20-6.10); RDW 14.9 % (11.5-14.5); WBC 5.9 10x3/uL (4.8-10.8)
[2018-02-07 07:31] LABS: CALCIUM 8.9 mg/dL (8.5-10.1); CHLORIDE - SERUM 100 mmol/L (98-107); CREATININE - SERUM 0.7 mg/dL (0.6-1.3); POTASSIUM - SERUM 3.6 mmol/L (3.5-5.1); SODIUM 143 mmol/L (136-145); UREA NITROGEN 21 mg/dL (7-18); eGFR NON AFRICAN AMERICAN > 90 mL/min (90-120)
[2018-02-07 07:34] LABS: CALC OSMOLALITY 294 mosm/kg (275-300); GLUCOSE 230 mg/dL (74-106)
[2018-02-07 07:36] LABS: CARBON DIOXIDE 44.3 mmol/L (21.0-32.0)
[2018-02-07 08:05] VITALS: BP 121/66
[2018-02-07 11:59] VITALS: BP 108/65
[2018-02-07 14:53] VITALS: BP 115/65
[2018-02-07 21:08] LABS: ACID FAST SMEAR Negative (()); AFB SPECIMEN PROCESSING Concentration (())
[2018-02-10 11:14] LABS: FUNGUS STAIN Final report (())
[2018-02-24 08:09] LABS: FUNGUS MYCOLOGY CULTURE Final report (())
[2018-03-06 15:27] LABS: FUNGUS MYCOLOGY CULTURE Final report (())
== END 2018-02-07 19:27 | DRG 177 ==
LOC: D.ER 09:30 → D.EDHOLD 13:17 → D.MS 13:17 → D.ICU 13:17 → D.MS 13:44 → D.ICU 01-29 15:27 → D.M2 02-03 14:15
PROVIDERS: Family Medicine; Internal Medicine Hematology & Oncology; Internal Medicine Nephrology; Internal Medicine Pulmonary Disease; Radiology Vascular & Interventional Radiology; Student in an Organized Health Care Education/Training Program
PROC: 0B968ZZ Drainage of Right Lower Lobe Bronchus, Via Natural or Artificial Opening Endoscopic (ICD-10-PCS; principal; 2018-01-27 11:02)
PROC: 0W993ZZ Drainage of Right Pleural Cavity, Percutaneous Approach (ICD-10-PCS; 2018-02-06)
DX: J69.0 Pneumonitis due to inhalation of food and vomit (principal); J96.21 Acute and chronic respiratory failure with hypoxia; J96.22 Acute and chronic respiratory failure with hypercapnia; I50.23 Acute on chronic systolic (congestive) heart failure; D61.818 Other pancytopenia; J44.0 Chronic obstructive pulmonary disease with (acute) lower respiratory infection; J44.1 Chronic obstructive pulmonary disease with (acute) exacerbation; F17.203 Nicotine dependence unspecified, with withdrawal; I42.9 Cardiomyopathy, unspecified; J90 Pleural effusion, not elsewhere classified; F10.239 Alcohol dependence with withdrawal, unspecified; E86.0 Dehydration; Z85.118 Personal history of other malignant neoplasm of bronchus and lung; Z90.2 Acquired absence of lung [part of]; I48.2 Chronic atrial fibrillation; D53.9 Nutritional anemia, unspecified; L72.3 Sebaceous cyst; G72.89 Other specified myopathies; D46.9 Myelodysplastic syndrome, unspecified; T45.1X5A Adverse effect of antineoplastic and immunosuppressive drugs, initial encounter

== ENCOUNTER 2018-02-07 19:33 | Inpatient (IN) | payer MEDICARE ==
[~2018-02-07] VITALS: Ht 175.3 cm; Wt 68.4 kg
--- NOTE | ~2018-02-07 | EC ---
PATIENT:NARINDER KNOX DATE OF SERVICE: 02/07/18 SEX: M MEDICAL RECORD: [id number] DATE OF : [birth year] LOCATION:[place] [address] AGE OF PATIENT: 62 ADMISSION DATE: 02/07/18 REFERRING PHYSICIAN: INTERPRETING PHYSICIAN: KODY BUENROSTRO MD ECHOCARDIOGRAM REPORT ECHO CHARGES 5 ECHO LIMITED Date: 02/19/18 1 DOPPLER ECHO COLOR FLOW 2 DOPPLER ECHO PULSE CLINICAL DIAGNOSIS: CARDIOMYPATHY ECHOCARDIOGRAPHIC MEASUREMENTS (adult normal given) AC root (d.<3.7cm) 0 cm LV Septum d (<1.2 cm> 0 cm Valve Excursion 0 cm LV Septum (systole) 0 cm Left Atria (s.<4.0cm> 0 cm LVPW d(<1.2cm) 0 cm RV (d.<2.3cm) 0 cm LVPW (sytole) 0 cm LV diastole(<5.6CM) 0 cm MV E-F(>70mm/sec) 0 cm LV systole 0 cm LVOT Diameter 0 cm MV exc.(>10mm) 0 cm Est.ejection fraction (50-75%) 0 % DOPPLER: LVIT 0 cm/sec A 0 cm/sec E 0 cm/sec LA 0 cm/sec RVSP 31.0 mmHg LVOT 0 cm/sec AOP1/2T 0 m/s Asc. Ao 0 cm/sec RVOT 0 cm/sec RA 0 cm/sec PA 0 cm/sec AV Gradient Peak 0 mmHg AV Mean 0 mmHg AV Area 0 cm MV Gradient Peak 0 mmHg MV Mean 0 mmHg MV Area 0 cm COMMENTS: LIMITED STUDY (2-D,COLOR,DOPPLER) COMPLETE ECHO DONE ON 01/27/18 Topographical Surveyor: Klaudia [place] Tour Guide: 3 Dr. Deshpande TAPE# PACS Pericardial Effusion N DATE OF SERVICE: 02/19/2018 PROCEDURE: Limited echocardiogram for ejection fraction. FINDINGS: 1. Left ventricular chamber size is dilated. Left ventricular systolic function is markedly reduced, overall ejection fraction 20% to 25%. 2. Left atrium, right atrium, and right ventricle chamber sizes are mildly dilated. 3. Valvular structures have normal structure and motion. ECHOCARDIOGRAM REPORT [id number] NARINDER KNOX 4. Doppler interrogation reveals mild mitral regurgitation, mild tricuspid regurgitation, no other valvular insufficiency or stenosis. 5. No evidence of pericardial effusion or left ventricular thrombus. TRANSINT:[id number] Voice Confirmation ID: [id number] DOCUMENT ID: [id number] KODY BUENROSTRO MD at 1856 CC: [id number] DICTATION DATE: 02/19/18 1234 SPEECH CORRECTION CONSULTANT: 02/19/18 1248 DIS IN 02/20/18 [place] [address] [place] [id number]
--- NOTE | ~2018-02-07 | RHP ---
PATIENT: NARINDER KNOX MEDICAL RECORD: [id number] ACCOUNT: [id number] LOCATION:[facility] : [birth year] ADMISSION DATE: 02/07/18 REHABILITATION HISTORY AND PHYSICAL EXAMINATION POST ADMISSION PHYSICIAN EXAMINATION DATE OF ADMISSION: 02/07/2018 ADMITTING DIAGNOSIS: Disuse myopathy. HISTORY OF PRESENT ILLNESS: He is a 62-year-old gentleman who presents secondary to lung cancer status post lobectomy at [facility]. He presented to the Emergency Room with generalized weakness, who apparently fell about a month prior to this acute hospital admit, injuring his back and had to quit his job. He has been staying at home and started drinking alcohol and has gone down however ever since. He states he has had multiple recent falls. He was admitted to acute care hospital with dehydration, pneumonia, weakness. He has had a past medical history significant for nonischemic cardiomyopathy with an EF of 10% to 15%, paroxysmal atrial fib, left lung cancer. He has got a history of vocal cord problems, tobacco dependency and ETOH use. He was noted to be pancytopenic and had microcytosis, was admitted to the acute hospital. CTA was negative for any type of PE. He also had a sebaceous cyst that had ruptured and had been seen and treated for by general surgery. He has been evaluated by pulmonary, oncology, cardiology, interventional radiology, speech therapy and PT during his acute hospital stay. He had a thoracentesis on 02/06/2018 with 525 cc of fluid removed. He has also had a bronchoscopy. He has been requiring O2, BiPAP. He has had proximal muscle weakness with difficulty rising from bed to chair. He has also had impaired mobility, self-care deficits. These are all barriers to his discharge home. He lives at home with a friend, states he has been independent with ADLs and mobility, still drives, currently set for max assist for his ADLs and moderate assist to total assist for mobility. He would like to return home with his friend to his prior level of functioning or better if possible. COMORBIDITIES: In this patient include nonischemic cardiomyopathy, dehydration, ibfzl-ya-vvmjuqt systolic heart failure, tobacco dependence, atrial fib, electrolyte abnormalities, oropharyngeal dysphagia, speech disturbance, disuse myopathy, respiratory failure, COPD, lung cancer, elevated troponin, multifactorial pneumonia and cardiomyopathy. PAST MEDICAL HISTORY: Significant for cancer of the lung. He has got chronic obstructive lung disease, history of atrial fib, pleural effusion, edema, peripheral vascular disease, tobacco use and alcohol use. PAST SURGICAL HISTORY: Includes left pneumonectomy. ALLERGIES: CODEINE. CURRENT MEDICATIONS: Include Calmoseptine as needed. He is on hydrochlorothiazide 12.5 mg daily, Cozaar 50 mg daily, DuoNeb updrafts as needed, Lasix 20 mg daily, Cardizem-CD 180 mg daily, Lanoxin 0.125 mg daily, and Motrin 600 mg every 8 hours p.r.n. HABITS: Does have a history of alcohol and tobacco use. HISTORY AND PHYSICAL [id number] NARINDER KNOX FAMILY HISTORY: Noncontributory. SOCIAL HISTORY: The patient hopes to return back home. Apparently, he is going to live with a friend for any type of extended period of time. REVIEW OF SYSTEMS: GENERAL: Does complain of weakness and fatigue. HEENT: Denies cold, cough, or congestion. CARDIOVASCULAR: Denies any chest pain. PHYSICAL EXAMINATION: VITAL SIGNS: Stable, afebrile. GENERAL: An elderly gentleman in no acute distress, alert upon exam. HEENT: Normocephalic and atraumatic. Mucosa moist. NECK: Supple. No lymphadenopathy. LUNGS: Clear at this time in upper velez. HEART: Regular rate and rhythm. No murmurs, rubs or gallops. ABDOMEN: Benign. EXTREMITIES: No clubbing, cyanosis or edema. NEUROLOGIC: He seems mainly intact. LABORATORY DATA: White count 6.8, H&H of 12 and 36, and platelet count is 171. His MCV is 108.8. Sodium is 143, potassium 3.9, BUN and creatinine of 32 and 0.6 and blood sugar is noted to be 180 and it should be noted that his CO2 levels are elevated at 43 here. ASSESSMENT: This is a 62-year-old gentleman admitted to rehab with a working diagnosis of disuse myopathy. The patient has potential to make improvement. We instituted the following multidisciplinary therapies include, but not limited to physical, occupational, respiratory, speech, nutritional services, prosthetics and orthotics. Given his complex medical condition and risk for more complications, rehabilitation services cannot be provided at a low level of care such as skilled nurse facility. PLAN: 1. Admit to [facility] services for intensive inpatient therapy to include the following disciplines: A. Physical therapy to improve gait, all transfer skills and bed mobility to a modified independent level. B. Occupational therapy to a modified independent level. C. Case management to assist with discharge planning and placement options. D. Nutrition to assist with nutritional needs. E. Rehabilitation nursing to assist in monitoring the patient's underlying medical conditions and to assist with any type of bowel or bladder management. 2. The patient's current medication and medical care will be continued. 3. The patient will be placed on standard fall precautions. 4. The patient's estimated length of stay is approximately 7-10 days. 5. We will discuss the patient during care team staff meeting this week. I am going to go ahead and watch him for any signs of DT. We will prophylax him for this as needed and we will watch his CO2 level closely and also check digoxin levels. TRANSINT:[id number] Voice Confirmation ID: [id number] DOCUMENT ID: [id number] HISTORY AND PHYSICAL [id number] NARINDER KNOX notes whether there has been none or any medical/functional change since admission: - No change since preadmission screen. TRUDY attests patient continues to be appropriate for IRF: - Continues to be appropriate. ELY REYEZ MD at 1404 CC: [id number] DICTATION DATE: 02/08/181753 SURGICAL GARMENT INSPECTOR: 02/08/182046 ADM IN [facility] [address] [place] [id number]
[2018-02-07 19:15] VITALS: BP 148/86
[~2018-02-07 19:33] MED LIST changes: +ADVIL200 MG PO
[2018-02-08 08:00] VITALS: BP 113/50
[2018-02-08 08:05] LABS: BASOPHILS 0 % (0-2); EOSINOPHILS 0 % (0-7); HEMATOCRIT 35.9 % (42.0-54.0); HEMOGLOBIN 11.8 g/dL (13.5-17.5); IMMATURE GRANULOCYTES 0.6 % (0-5); LYMPHOCYTES 16.1 % (15-50); MCH 35.8 pg (26.0-34.0); MCHC 32.9 g/dL (31.0-37.0); MCV 108.8 fL (80.0-100.0); MEAN PLATELET VOLUME 9.5 fL (7.4-10.4); MONOCYTES 15.8 % (2-11); NEUTROPHILS 67.5 % (40-80); PLATELET COUNT 171 10x3/uL (130-400); WBC 6.8 10x3/uL (4.8-10.8)
[2018-02-08 08:15] LABS: CALCIUM 9.1 mg/dL (8.5-10.1); CHLORIDE - SERUM 101 mmol/L (98-107); CREATININE - SERUM 0.6 mg/dL (0.6-1.3); POTASSIUM - SERUM 3.9 mmol/L (3.5-5.1); SODIUM 143 mmol/L (136-145); eGFR NON AFRICAN AMERICAN > 90 mL/min (90-120)
[2018-02-08 08:16] LABS: CALC OSMOLALITY 296 mosm/kg (275-300); GLUCOSE 180 mg/dL (74-106); UREA NITROGEN 32 mg/dL (7-18)
[2018-02-08 08:17] LABS: CARBON DIOXIDE 42.9 mmol/L (21.0-32.0)
[2018-02-08 10:48] VITALS: Ht 175.3 cm; Wt 68.4 kg
[2018-02-08 20:00] VITALS: BP 144/82
[2018-02-09 08:00] VITALS: BP 98/57
[2018-02-09 19:30] VITALS: BP 149/75
[2018-02-10 07:10] LABS: CALC OSMOLALITY 290 mosm/kg (275-300); CALCIUM 9.1 mg/dL (8.5-10.1); CHLORIDE - SERUM 97 mmol/L (98-107); CREATININE - SERUM 0.5 mg/dL (0.6-1.3); DIGOXIN 0.42 ng/mL (0.90-2.00); GLUCOSE 138 mg/dL (74-106); SODIUM 141 mmol/L (136-145); UREA NITROGEN 36 mg/dL (7-18); eGFR NON AFRICAN AMERICAN > 90 mL/min (90-120)
[2018-02-10 07:12] LABS: POTASSIUM - SERUM 4.6 mmol/L (3.5-5.1)
[2018-02-10 07:13] LABS: CARBON DIOXIDE 45.1 mmol/L (21.0-32.0)
[2018-02-10 08:00] VITALS: BP 112/61
[2018-02-10 10:36] LABS: BASOPHILS 0 % (0-2); EOSINOPHILS 1.2 % (0-7); HEMATOCRIT 33.3 % (42.0-54.0); HEMOGLOBIN 10.6 g/dL (13.5-17.5); IMMATURE GRANULOCYTES 0.4 % (0-5); LYMPHOCYTES 20.8 % (15-50); MCHC 31.8 g/dL (31.0-37.0); MCV 109.9 fL (80.0-100.0); MEAN PLATELET VOLUME 10.3 fL (7.4-10.4); MONOCYTES 14.2 % (2-11); NEUTROPHILS 63.4 % (40-80); PLATELET COUNT 138 10x3/uL (130-400); RBC 3.03 10x6/uL (4.20-6.10); RDW 15.1 % (11.5-14.5)
[2018-02-10 21:19] VITALS: BP 77/39
[2018-02-11 08:26] VITALS: BP 98/54
[2018-02-11 19:00] VITALS: BP 99/43
[2018-02-12 07:02] LABS: BASOPHILS 0 % (0-2); EOSINOPHILS 2.4 % (0-7); HEMATOCRIT 30.4 % (42.0-54.0); IMMATURE GRANULOCYTES 0.5 % (0-5); LYMPHOCYTES 27.3 % (15-50); MCH 35.6 pg (26.0-34.0); MCHC 32.9 g/dL (31.0-37.0); MCV 108.2 fL (80.0-100.0); MEAN PLATELET VOLUME 9.9 fL (7.4-10.4); MONOCYTES 17.7 % (2-11); NEUTROPHILS 52.1 % (40-80); RBC 2.81 10x6/uL (4.20-6.10); WBC 4.2 10x3/uL (4.8-10.8)
[2018-02-12 07:05] LABS: PLATELET COUNT 105 10x3/uL (130-400)
[2018-02-12 07:20] LABS: CALC OSMOLALITY 282 mosm/kg (275-300); CALCIUM 8.5 mg/dL (8.5-10.1); CHLORIDE - SERUM 99 mmol/L (98-107); CREATININE - SERUM 0.4 mg/dL (0.6-1.3); DIGOXIN 0.45 ng/mL (0.90-2.00); GLUCOSE 115 mg/dL (74-106); POTASSIUM - SERUM 4.1 mmol/L (3.5-5.1); SODIUM 141 mmol/L (136-145); UREA NITROGEN 15 mg/dL (7-18); eGFR NON AFRICAN AMERICAN > 90 mL/min (90-120)
[2018-02-12 07:29] LABS: CARBON DIOXIDE 47.5 mmol/L (21.0-32.0)
[2018-02-12 08:00] VITALS: BP 118/53
[2018-02-12 19:00] VITALS: BP 123/49
[2018-02-13 08:00] VITALS: BP 106/56
[2018-02-13 20:40] VITALS: BP 116/54
[2018-02-14 06:56] LABS: BASOPHILS 0.3 % (0-2); EOSINOPHILS 2.9 % (0-7); HEMATOCRIT 27.6 % (42.0-54.0); HEMOGLOBIN 9.1 g/dL (13.5-17.5); IMMATURE GRANULOCYTES 0.3 % (0-5); MCH 35.4 pg (26.0-34.0); MCV 107.4 fL (80.0-100.0); MEAN PLATELET VOLUME 9.7 fL (7.4-10.4); MONOCYTES 17.4 % (2-11); NEUTROPHILS 51.1 % (40-80); PLATELET COUNT 99 10x3/uL (130-400); RBC 2.57 10x6/uL (4.20-6.10); RDW 15.7 % (11.5-14.5); WBC 3.5 10x3/uL (4.8-10.8)
[2018-02-14 07:12] LABS: CALC OSMOLALITY 283 mosm/kg (275-300); CALCIUM 7.8 mg/dL (8.5-10.1); CHLORIDE - SERUM 98 mmol/L (98-107); CREATININE - SERUM 0.6 mg/dL (0.6-1.3); GLUCOSE 162 mg/dL (74-106); POTASSIUM - SERUM 3.4 mmol/L (3.5-5.1); SODIUM 140 mmol/L (136-145); UREA NITROGEN 15 mg/dL (7-18); eGFR NON AFRICAN AMERICAN > 90 mL/min (90-120)
[2018-02-14 07:23] LABS: CARBON DIOXIDE 42.9 mmol/L (21.0-32.0)
[2018-02-14 08:02] VITALS: BP 109/60
[2018-02-14 19:02] VITALS: BP 135/60
[2018-02-15 07:58] VITALS: BP 115/61
[2018-02-15 21:20] VITALS: BP 105/52
[2018-02-16 08:57] VITALS: BP 130/66
[2018-02-16 20:00] VITALS: BP 133/54
[2018-02-17 06:31] LABS: BASOPHILS 0.3 % (0-2); EOSINOPHILS 2.6 % (0-7); HEMATOCRIT 28.6 % (42.0-54.0); HEMOGLOBIN 9.3 g/dL (13.5-17.5); MCHC 32.5 g/dL (31.0-37.0); MCV 107.5 fL (80.0-100.0); MEAN PLATELET VOLUME 9.8 fL (7.4-10.4); MONOCYTES 18.6 % (2-11); NEUTROPHILS 48.5 % (40-80); RBC 2.66 10x6/uL (4.20-6.10); RDW 16.3 % (11.5-14.5); WBC 3.5 10x3/uL (4.8-10.8)
[2018-02-17 06:37] LABS: PLATELET COUNT 125 10x3/uL (130-400)
[2018-02-17 06:47] LABS: CALC OSMOLALITY 285 mosm/kg (275-300); CALCIUM 8.2 mg/dL (8.5-10.1); CARBON DIOXIDE 37.4 mmol/L (21.0-32.0); CHLORIDE - SERUM 103 mmol/L (98-107); CREATININE - SERUM 0.5 mg/dL (0.6-1.3); POTASSIUM - SERUM 3.5 mmol/L (3.5-5.1); SODIUM 143 mmol/L (136-145); UREA NITROGEN 15 mg/dL (7-18); eGFR NON AFRICAN AMERICAN > 90 mL/min (90-120)
[2018-02-17 06:48] LABS: GLUCOSE 98 mg/dL (74-106)
[2018-02-17 08:00] VITALS: BP 118/47
[2018-02-17 21:57] VITALS: BP 131/64
[2018-02-18 08:14] VITALS: BP 136/71
[2018-02-18 19:00] VITALS: BP 130/72
[2018-02-19 06:33] LABS: CALC OSMOLALITY 283 mosm/kg (275-300); CALCIUM 8.4 mg/dL (8.5-10.1); CARBON DIOXIDE 37.2 mmol/L (21.0-32.0); CHLORIDE - SERUM 101 mmol/L (98-107); CREATININE - SERUM 0.5 mg/dL (0.6-1.3); GLUCOSE 182 mg/dL (74-106); POTASSIUM - SERUM 3.5 mmol/L (3.5-5.1); SODIUM 141 mmol/L (136-145); UREA NITROGEN 8 mg/dL (7-18); eGFR NON AFRICAN AMERICAN > 90 mL/min (90-120)
[2018-02-19 06:57] LABS: BASOPHILS 0.3 % (0-2); EOSINOPHILS 2.2 % (0-7); HEMATOCRIT 29.9 % (42.0-54.0); HEMOGLOBIN 9.9 g/dL (13.5-17.5); IMMATURE GRANULOCYTES 0.3 % (0-5); LYMPHOCYTES 33.8 % (15-50); MCH 35.2 pg (26.0-34.0); MCHC 33.1 g/dL (31.0-37.0); MCV 106.4 fL (80.0-100.0); MEAN PLATELET VOLUME 9.6 fL (7.4-10.4); MONOCYTES 15.9 % (2-11); NEUTROPHILS 47.5 % (40-80); PLATELET COUNT 149 10x3/uL (130-400); RBC 2.81 10x6/uL (4.20-6.10); WBC 3.6 10x3/uL (4.8-10.8)
[2018-02-19 08:15] VITALS: BP 117/64
[2018-02-19 19:00] VITALS: BP 117/71
[2018-02-20 08:06] VITALS: BP 112/77
[2018-02-20] MEDS ORDERED: REQUIP0.25 MG PO (09:33)
[2018-02-20] MEDS ORDERED: ELIQUIS2.5 MG PO (09:33)
== END 2018-02-20 11:54 | disposition home or self-care (01) | DRG 91 ==
LOC: D.REHAB 19:33
PROVIDERS: Emergency Medicine
DX: G72.89 Other specified myopathies (principal); I50.23 Acute on chronic systolic (congestive) heart failure; J18.9 Pneumonia, unspecified organism; J96.21 Acute and chronic respiratory failure with hypoxia; J96.22 Acute and chronic respiratory failure with hypercapnia; I42.8 Other cardiomyopathies; C34.90 Malignant neoplasm of unspecified part of unspecified bronchus or lung; J44.1 Chronic obstructive pulmonary disease with (acute) exacerbation; R13.12 Dysphagia, oropharyngeal phase; E86.0 Dehydration; F17.200 Nicotine dependence, unspecified, uncomplicated; I48.91 Unspecified atrial fibrillation; E87.8 Other disorders of electrolyte and fluid balance, not elsewhere classified; R47.9 Unspecified speech disturbances; D69.6 Thrombocytopenia, unspecified; F10.10 Alcohol abuse, uncomplicated; D50.9 Iron deficiency anemia, unspecified; R53.81 Other malaise; E83.42 Hypomagnesemia; E87.6 Hypokalemia; E83.39 Other disorders of phosphorus metabolism

== ENCOUNTER 2018-03-28 14:18 | Inpatient (IN) | payer MEDICARE ==
[~2018-03-28] VITALS: Ht 175.3 cm; Wt 68.0 kg
[~2018-03-28 14:18] MED LIST changes: +ELIQUIS2.5 MG PO; +REQUIP0.25 MG PO
[2018-03-28 16:27] LABS: ALBUMIN 3.4 g/dL (3.4-5.0); ALKALINE PHOSPHATASE 54 U/L (46-116); ALT (SGPT) 103 U/L (10-68); BILIRUBIN - TOTAL 1.75 mg/dL (0.2-1.3); CALC OSMOLALITY 275 mosm/kg (275-300); CALCIUM 8.6 mg/dL (8.5-10.1); CHLORIDE - SERUM 87 mmol/L (98-107); CREATININE - SERUM 0.9 mg/dL (0.6-1.3); GLUCOSE 80 mg/dL (74-106); POTASSIUM - SERUM 3.4 mmol/L (3.5-5.1); PROTEIN - SERUM 6.7 g/dL (6.4-8.2); SODIUM 134 mmol/L (136-145); UREA NITROGEN 38 mg/dL (7-18); eGFR NON AFRICAN AMERICAN > 90 mL/min (90-120)
[2018-03-28 16:37] LABS: CKMB 3.9 U/L (0.0-3.6); CREATINE KINASE 94 UL (21-232); MAGNESIUM - SERUM 2.2 mg/dL (1.8-2.4); TROPONIN-I 0.051 ng/mL (0.000-0.060)
[2018-03-28 16:57] LABS: BASOPHILS 0.4 % (0-2); EOSINOPHILS 0 % (0-7); HEMATOCRIT 42.3 % (42.0-54.0); IMMATURE GRANULOCYTES 0.4 % (0-5); LYMPHOCYTES 27.5 % (15-50); MCH 36.8 pg (26.0-34.0); MCHC 35.5 g/dL (31.0-37.0); MCV 103.7 fL (80.0-100.0); MEAN PLATELET VOLUME 9.8 fL (7.4-10.4); MONOCYTES 17.2 % (2-11); NEUTROPHILS 54.5 % (40-80); PLATELET COUNT 113 10x3/uL (130-400); RBC 4.08 10x6/uL (4.20-6.10); RDW 15.5 % (11.5-14.5); WBC 4.5 10x3/uL (4.8-10.8)
[2018-03-28 18:14] VITALS: BP 127/66
[2018-03-28 20:18] VITALS: BP 135/86; BMI 22.2
[2018-03-28 21:51] VITALS: BP 135/86
[2018-03-29 00:04] VITALS: BP 142/74
[2018-03-29 05:06] VITALS: BP 110/67
[2018-03-29 08:21] VITALS: BP 120/75
[2018-03-29 09:43] VITALS: Ht 175.3 cm; Wt 68.0 kg
[2018-03-29 10:16] LABS: HEMATOCRIT 42.5 % (42.0-54.0); HEMOGLOBIN 14.9 g/dL (13.5-17.5); MCH 36.5 pg (26.0-34.0); MCHC 35.1 g/dL (31.0-37.0); MCV 104.2 fL (80.0-100.0); MEAN PLATELET VOLUME 9.8 fL (7.4-10.4); RBC 4.08 10x6/uL (4.20-6.10); RDW 15.2 % (11.5-14.5); WBC 3.4 10x3/uL (4.8-10.8)
[2018-03-29 10:17] LABS: PLATELET COUNT 87 10x3/uL (130-400)
[2018-03-29 10:25] LABS: APTT 27.1 SECONDS (22.8-39.4); INR 1.06 (0.85-1.17); PROTIME 13.3 SECONDS (11.6-15.0)
[2018-03-29 10:32] LABS: BILIRUBIN - TOTAL 0.86 mg/dL (0.2-1.3); CALCIUM 8.7 mg/dL (8.5-10.1); POTASSIUM - SERUM 3.7 mmol/L (3.5-5.1); PROTEIN - SERUM 6.2 g/dL (6.4-8.2)
[2018-03-29 10:40] LABS: ANION GAP 4.9 mmol/L (8-16); CREATININE - SERUM 1.2 mg/dL (0.6-1.3)
[2018-03-29 10:41] LABS: CARBON DIOXIDE 42.8 mmol/L (21.0-32.0)
[2018-03-29 10:51] LABS: LYMPHOCYTES 20 % (15-50); MONOCYTES 26 % (2-11); NEUTROPHILS 54 % (40-80); PLATELET ESTIMATE DECREASED
[2018-03-29 12:55] VITALS: BP 124/74
[2018-03-29 16:18] VITALS: BP 107/64
[2018-03-29 20:00] VITALS: BP 100/69
[2018-03-29 20:49] LABS: COLOR DK YELLOW (YELLOW)
[2018-03-29 20:50] LABS: APPEARANCE CLEAR (CLEAR); BILIRUBIN NEGATIVE (NEGATIVE); EPITHELIAL CELLS NSEEN /hpf (0-5); GLUCOSE 100 mg/dL (NEGATIVE); KETONE NEGATIVE (NEGATIVE); NITRITE NEGATIVE (NEGATIVE); PROTEIN TRACE mg/dL (NEGATIVE); RED CELLS - URINE NONE SEEN /hpf (0-5); SPECIFIC GRAVITY 1.015 (1.005-1.020); UROBILINOGEN NORMAL (NORMAL); WHITE CELLS - URINE NSEEN /hpf (0-5)
[2018-03-30] VITALS: BP 106/67
[2018-03-30 04:00] VITALS: BP 112/54
[2018-03-30 07:25] VITALS: BP 108/69
[2018-03-30 07:28] LABS: BASOPHILS 0 % (0-2); EOSINOPHILS 0 % (0-7); HEMATOCRIT 41.2 % (42.0-54.0); IMMATURE GRANULOCYTES 0.4 % (0-5); LYMPHOCYTES 12.9 % (15-50); MCH 36.4 pg (26.0-34.0); MEAN PLATELET VOLUME 10.5 fL (7.4-10.4); MONOCYTES 9.1 % (2-11); NEUTROPHILS 77.6 % (40-80); PLATELET COUNT 96 10x3/uL (130-400); RBC 3.85 10x6/uL (4.20-6.10); RDW 14.8 % (11.5-14.5)
[2018-03-30 07:37] LABS: WBC 4.7 10x3/uL (4.8-10.8)
[2018-03-30 07:48] LABS: ANION GAP 9.3 mmol/L (8-16); BILIRUBIN - TOTAL 0.62 mg/dL (0.2-1.3); CALCIUM 9.3 mg/dL (8.5-10.1); CARBON DIOXIDE 39.4 mmol/L (21.0-32.0); CREATININE - SERUM 1.3 mg/dL (0.6-1.3); PHOSPHOROUS 2.9 mg/dL (2.5-4.9); POTASSIUM - SERUM 3.7 mmol/L (3.5-5.1); PROTEIN - SERUM 6.2 g/dL (6.4-8.2)
[2018-03-30 07:50] LABS: MAGNESIUM - SERUM 1.6 mg/dL (1.8-2.4)
[2018-03-30 11:32] VITALS: BP 97/66
[2018-03-30 15:23] VITALS: BP 109/53
[2018-03-30 18:00] VITALS: BP 110/67
[2018-03-31] VITALS (7 sets, daily range): BP systolic 108–137; BP diastolic 63–81
[2018-03-31 06:51] LABS: BASOPHILS 0 % (0-2); EOSINOPHILS 0 % (0-7); HEMATOCRIT 38.1 % (42.0-54.0); HEMOGLOBIN 12.7 g/dL (13.5-17.5); IMMATURE GRANULOCYTES 0.5 % (0-5); LYMPHOCYTES 7.3 % (15-50); MCH 35.9 pg (26.0-34.0); MCHC 33.3 g/dL (31.0-37.0); MCV 107.6 fL (80.0-100.0); MONOCYTES 4.3 % (2-11); NEUTROPHILS 87.9 % (40-80); PLATELET COUNT 101 10x3/uL (130-400); RBC 3.54 10x6/uL (4.20-6.10); RDW 14.3 % (11.5-14.5)
[2018-03-31 06:55] LABS: WBC 8.1 10x3/uL (4.8-10.8)
[2018-03-31 07:08] LABS: ALBUMIN 2.7 g/dL (3.4-5.0); ALKALINE PHOSPHATASE 33 U/L (46-116); ALT (SGPT) 55 U/L (10-68); CHLORIDE - SERUM 94 mmol/L (98-107); POTASSIUM - SERUM 4.1 mmol/L (3.5-5.1); PROTEIN - SERUM 5.5 g/dL (6.4-8.2); SODIUM 139 mmol/L (136-145); UREA NITROGEN 33 mg/dL (7-18)
[2018-03-31 07:24] LABS: CALC OSMOLALITY 290 mosm/kg (275-300); CREATININE - SERUM 0.8 mg/dL (0.6-1.3); GLUCOSE 206 mg/dL (74-106); eGFR NON AFRICAN AMERICAN > 90 mL/min (90-120)
[2018-03-31 07:31] LABS: CARBON DIOXIDE 47.1 mmol/L (21.0-32.0)
[2018-04-01 00:33] VITALS: BP 123/100
[2018-04-01 04:45] VITALS: BP 124/67
[2018-04-01 06:51] LABS: BASOPHILS 0 % (0-2); EOSINOPHILS 0 % (0-7); HEMATOCRIT 39.3 % (42.0-54.0); HEMOGLOBIN 12.9 g/dL (13.5-17.5); IMMATURE GRANULOCYTES 0.4 % (0-5); LYMPHOCYTES 10.9 % (15-50); MCH 35.9 pg (26.0-34.0); MCHC 32.8 g/dL (31.0-37.0); MCV 109.5 fL (80.0-100.0); MEAN PLATELET VOLUME 10.8 fL (7.4-10.4); MONOCYTES 4.6 % (2-11); NEUTROPHILS 84.1 % (40-80); PLATELET COUNT 100 10x3/uL (130-400); RBC 3.59 10x6/uL (4.20-6.10); RDW 14.4 % (11.5-14.5); WBC 8.2 10x3/uL (4.8-10.8)
[2018-04-01 07:10] LABS: ALBUMIN 2.6 g/dL (3.4-5.0); ALKALINE PHOSPHATASE 32 U/L (46-116); ALT (SGPT) 79 U/L (10-68); BILIRUBIN - TOTAL 0.46 mg/dL (0.2-1.3); CALC OSMOLALITY 294 mosm/kg (275-300); CALCIUM 9.4 mg/dL (8.5-10.1); CARBON DIOXIDE 39.2 mmol/L (21.0-32.0); CHLORIDE - SERUM 97 mmol/L (98-107); CREATININE - SERUM 0.9 mg/dL (0.6-1.3); GLUCOSE 224 mg/dL (74-106); POTASSIUM - SERUM 3.6 mmol/L (3.5-5.1); PROTEIN - SERUM 5.4 g/dL (6.4-8.2); SODIUM 139 mmol/L (136-145); UREA NITROGEN 40 mg/dL (7-18); eGFR NON AFRICAN AMERICAN > 90 mL/min (90-120)
[2018-04-01 08:35] VITALS: BP 118/96
[2018-04-01 17:56] VITALS: BP 105/54
[2018-04-01 20:00] VITALS: BP 101/72
[2018-04-02 00:02] VITALS: BP 108/73
[2018-04-02 04:00] VITALS: BP 128/70
[2018-04-02 07:04] LABS: BASOPHILS 0 % (0-2); EOSINOPHILS 0 % (0-7); HEMATOCRIT 43.2 % (42.0-54.0); HEMOGLOBIN 14.2 g/dL (13.5-17.5); IMMATURE GRANULOCYTES 0.4 % (0-5); LYMPHOCYTES 8.7 % (15-50); MCH 36.4 pg (26.0-34.0); MCHC 32.9 g/dL (31.0-37.0); MCV 110.8 fL (80.0-100.0); MEAN PLATELET VOLUME 11.4 fL (7.4-10.4); MONOCYTES 5.2 % (2-11); NEUTROPHILS 85.7 % (40-80); PLATELET COUNT 118 10x3/uL (130-400); RDW 14.3 % (11.5-14.5)
[2018-04-02 07:28] LABS: ALBUMIN 2.9 g/dL (3.4-5.0); ALKALINE PHOSPHATASE 36 U/L (46-116); BILIRUBIN - TOTAL 0.38 mg/dL (0.2-1.3); CALCIUM 9.4 mg/dL (8.5-10.1); CARBON DIOXIDE 36.9 mmol/L (21.0-32.0); CHLORIDE - SERUM 97 mmol/L (98-107); POTASSIUM - SERUM 3.5 mmol/L (3.5-5.1); PROTEIN - SERUM 6.1 g/dL (6.4-8.2); SODIUM 139 mmol/L (136-145); UREA NITROGEN 39 mg/dL (7-18); eGFR NON AFRICAN AMERICAN 80 mL/min (90-120)
[2018-04-02 07:29] LABS: ALT (SGPT) 127 U/L (10-68); CALC OSMOLALITY 297 mosm/kg (275-300); GLUCOSE 304 mg/dL (74-106)
[2018-04-02 20:03] VITALS: BP 114/75
[2018-04-03] VITALS: BP 119/76
[2018-04-03 04:58] VITALS: BP 116/59
[2018-04-03 07:18] LABS: BASOPHILS 0.1 % (0-2); EOSINOPHILS 0.3 % (0-7); HEMATOCRIT 41.1 % (42.0-54.0); HEMOGLOBIN 13.3 g/dL (13.5-17.5); IMMATURE GRANULOCYTES 0.8 % (0-5); LYMPHOCYTES 6.9 % (15-50); MCH 36.2 pg (26.0-34.0); MCHC 32.4 g/dL (31.0-37.0); MEAN PLATELET VOLUME 11.1 fL (7.4-10.4); MONOCYTES 4.9 % (2-11); PLATELET COUNT 127 10x3/uL (130-400); RBC 3.67 10x6/uL (4.20-6.10); RDW 14.5 % (11.5-14.5)
[2018-04-03 07:24] LABS: ALBUMIN 2.8 g/dL (3.4-5.0); ALKALINE PHOSPHATASE 33 U/L (46-116); BILIRUBIN - TOTAL 0.45 mg/dL (0.2-1.3); CARBON DIOXIDE 32.3 mmol/L (21.0-32.0); CHLORIDE - SERUM 100 mmol/L (98-107); CREATININE - SERUM 0.9 mg/dL (0.6-1.3); PROTEIN - SERUM 5.7 g/dL (6.4-8.2); SODIUM 142 mmol/L (136-145); UREA NITROGEN 41 mg/dL (7-18); eGFR NON AFRICAN AMERICAN > 90 mL/min (90-120)
[2018-04-03 07:28] LABS: ALT (SGPT) 197 U/L (10-68); CALC OSMOLALITY 299 mosm/kg (275-300); GLUCOSE 231 mg/dL (74-106); POTASSIUM - SERUM 4.3 mmol/L (3.5-5.1)
--- NOTE | 2018-04-03 14:57 | EC ---
PATIENT:NARINDER KNOX DATE OF SERVICE: 03/28/18 SEX: M MEDICAL RECORD: [id number] DATE OF : 57 LOCATION:D.M3 D.120 AGE OF PATIENT: 63 ADMISSION DATE: 03/28/18 REFERRING PHYSICIAN: INTERPRETING PHYSICIAN: KODY JACOBSEN MD ECHOCARDIOGRAM REPORT ECHO CHARGES 5 ECHO LIMITED Date: 03/29/18 1 DOPPLER ECHO COLOR FLOW 2 DOPPLER ECHO PULSE CLINICAL DIAGNOSIS: SOB ECHOCARDIOGRAPHIC MEASUREMENTS (adult normal given) AC root (d.<3.7cm) 0 cm LV Septum d (<1.2 cm> 0 cm Valve Excursion 0 cm LV Septum (systole) 0 cm Left Atria (s.<4.0cm> 0 cm LVPW d(<1.2cm) 0 cm RV (d.<2.3cm) 0 cm LVPW (sytole) 0 cm LV diastole(<5.6CM) 0 cm MV E-F(>70mm/sec) 0 cm LV systole 0 cm LVOT Diameter 0 cm MV exc.(>10mm) 0 cm Est.ejection fraction (50-75%) 0 % DOPPLER: LVIT 0 cm/sec A 0 cm/sec E 0 cm/sec LA 0 cm/sec RVSP 27.1 mmHg LVOT 0 cm/sec AOP1/2T 0 m/s Asc. Ao 0 cm/sec RVOT 0 cm/sec RA 0 cm/sec PA 0 cm/sec AV Gradient Peak 0 mmHg AV Mean 0 mmHg AV Area 0 cm MV Gradient Peak 0 mmHg MV Mean 0 mmHg MV Area 0 cm COMMENTS: LIMITED STUDY (2-D,COLOR,DOPPLER) Tin Dipper: Klaudia ULLOA Manager Gaming: Klaudia Jacobsen TAPE# PACS Pericardial Effusion N DATE OF SERVICE: 03/29/2018 PROCEDURE: Limited echocardiogram. FINDINGS: 1. Left ventricular chamber size is mildly dilated. Left ventricular systolic function is markedly reduced, overall ejection fraction estimated 20%. 2. Left atrium, right atrium, and right ventricle chamber sizes are as well mildly dilated giving 4-chamber dilatation. 3. Valvular structures have normal structure and motion. ECHOCARDIOGRAM REPORT [id number] NARINDER KNOX 4. Doppler interrogation only reveals trace aortic insufficiency, mild tricuspid regurgitation, no other valvular insufficiency or stenosis. Pulmonary systolic pressure is normal estimated at 27 mmHg. 5. No evidence of pericardial effusion or left ventricular thrombus. TRANSINT:[id number] Voice Confirmation ID: [id number] DOCUMENT ID: [id number] KODY JACOBSEN MD at 1457 CC: [id number] DICTATION DATE: 03/30/18905 OLDER WORKER SPECIALIST: 03/30/18 1022 ADM IN [place] [address] [place] [address]
--- NOTE | 2018-04-03 14:57 | CN ---
PATIENT NAME:NARINDER KNOX MEDICAL RECORD: [id number] : 57 LOCATION:D. D.1207 ADMIT DATE: 03/28/18 ACCOUNT: [id number] CONSULTING PHYSICIAN: KODY BUENROSTRO MD REFERRING PHYSICIAN: ANA PIKE MD DATE OF CONSULTATION: 03/30/2018 CARDIOLOGY CONSULT DIAGNOSES: 1. Nonischemic cardiomyopathy. 2. Congestive heart failure, chronic systolic dysfunction. 3. COPD. 4. Smoking history. 5. ETOH abuse. HISTORY: This is a gentleman with a known nonischemic cardiomyopathy. Ejection fraction in the 20% range. Echocardiogram today confirms that and he has no changes. He is short of breath. His heart rate runs anywhere from 80s to 140 range. With any exertion, his heart rate does increase. The problem has been in the past that his systolic blood pressure is quite low and it is difficult to add medications to him. Previously, he was on losartan, this is on hold. He as well has been on digoxin in the past. This is as well on hold. His creatinine is within normal limits, at one point 3. PHYSICAL EXAMINATION: GENERAL APPEARANCE: Well-nourished, well-developed, appears stated age. Level of distress, comfortable. PSYCHIATRIC: Mental status, alert, normal affect. Orientation, oriented to time, place and person. EYES: Lids and conjunctiva, noninjected. No discharge, no pallor. ENT: Lips, teeth, gums, normal dentition. Oropharynx, no cyanosis, no pallor. NECK: Carotid arteries, bilateral normal upstroke, no bruits, no thrills. JUGULAR VEINS: No jugular venous pressure or distention. CERVICAL LYMPH NODES: Nontender, nonenlarged. THYROID: Not enlarged. Nontender. No nodules. LUNGS: Respiratory effort, unlabored. CHEST: Normal curvature. No thoracic deformity. No chest wall tenderness. Percussion, resonant. Auscultation, clear. No wheezes, no rales, no rhonchi. CARDIOVASCULAR: Precordial exam, nondisplaced. No heaves or pericardial thrills. Rate and rhythm, regular. Heart sounds, normal S1, normal S2. No S3, no gallop, no rub. Systolic murmur, not heard. Diastolic murmur, not heard. EXTREMITIES: No cyanosis, no edema. Peripheral pulses, full and equal in all extremities, except as noted. No bruits appreciated. ABDOMEN: Soft, nondistended. Normal aorta. No bruit. Nontender. No masses. Liver, nontender, no hepatomegaly. Spleen, nontender, no splenomegaly. MUSCULOSKELETAL: No joint tenderness. No joint swelling. No erythema. NEUROLOGICAL: Normal gait, normal strength, normal tone. SKIN: Warm and dry. OVERALL IMPRESSION: Cardiomyopathy. At this time, we will try low-dose Coreg at 3.125 b.i.d. We will reinstitute his digoxin and hold the losartan at this point. I would rather use the beta damaso for the heart rate and the blood pressure control. Further care depends upon changes in his medications. CONSULT REPORT [id number] NARINDER KNOX TRANSINT:[id number] Voice Confirmation ID: [id number] DOCUMENT ID: [id number] KODY BUENROSTRO MD at 1457 CC: [id number] DICTATION DATE: 03/30/18 1335 NECK BAND MAKER: 03/30/18 1611 ADM IN [place] [address] [place] [address]
--- NOTE | 2018-04-03 19:52 | MORECARE ---
CASE MANAGEMENT DISCHARGE SUMMARY PATIENT: NARINDER NKOX UNIT: [id number] ADM DATE: 03/28/18 AGE: 63 : 56 SEX: M ROOM/BED: D.1207 AUTHOR: MARICHUY OHARA PHYSICIAN: REFERRING PHYSICIAN: ANA PIKE MD DATE OF SERVICE: 04/03/18 Discharge Plan Patient Name: NARINDER KNOX Facility: [facility]:[place] : 1955 Planned Disposition: Facility for hospice services Anticipated Discharge Date: 04/05/18 Discharge Date: Expected LOS: 8 Initial Reviewer: [email or web address] Initial Review Date: 04/03/2018 Generated: 04/03/18 8:52 pm DCPIA - Discharge Planning Initial Assessment Updated by [email or web address]: Cindy Oconnell on 04/03/18 7:52 pm * Is the patient Alert and Oriented? Yes * How many steps to enter\exit or inside your home? * PCP DR. TABATHA LAKE * Pharmacy [facility] [address] * Preadmission Environment Home Alone * ADLs Independent * Equipment Nebulizer Shower Chair * List name and contact numbers for known caregivers / representatives who currently or will assist patient after discharge: SAL ELIZONDO (FRIEND AND NEIGHBOR) [phone] MOTHER- PRICILLA NEWMAN (LIVES IN [place]) [phone] * Verbal permission to speak to the caregivers and representatives has been obtained from the patient. Yes * Community resources currently utilized None * Additional services required to return to the preadmission environment? Yes * Can the patient safely return to the preadmission environment? No * Has this patient been hospitalized within the prior 30 days at any hospital? Yes Patient Name: NARINDER KNOX Page 12805 at 1951 All edits/amendments must be made on the electronic document DICTATION DATE: 04/03/181951 BILINGUAL EXECUTIVE ASSISTANT: JOVANA 04/03/181951 RPT#: [id number] DC DATE: STATUS: ADM IN [facility] [address] [place] [address] END OF REPORT
[2018-04-03 20:00] VITALS: BP 102/71
--- NOTE | 2018-04-03 20:05 | MORECARE ---
CASE MANAGEMENT DISCHARGE SUMMARY PATIENT: NARINDER KNOX UNIT: [id number] ADM DATE: 03/28/18 AGE: 63 : 57 SEX: M ROOM/BED: D.1207 AUTHOR: MARICHUY OHARA PHYSICIAN: REFERRING PHYSICIAN: ANA PIKE MD DATE OF SERVICE: 04/03/18 Discharge Plan Patient Name: NARINDER KNOX Facility: [facility]:[place] : 1955 Planned Disposition: Facility for hospice services Anticipated Discharge Date: 04/05/18 Discharge Date: Expected LOS: 8 Initial Reviewer: [email or web address] Initial Review Date: 04/03/2018 Generated: 04/03/18 9:05 pm Comments DCP- Discharge Planning Updated by [email or web address]: Cindy Oconnell on 04/03/18 6:[address] Patient Name: NARINDER KNOX Admission Status: ER Accout number: [id number] Admission Date: 03-28-2018 : 1955 Admission Diagnosis: Attending: ANA PIKE Current LOS: 6 Anticipated DC Date: 04-05-2018 Planned Disposition: Facility for hospice services Primary Insurance: MEDICARE A & B Discharge Planning Comments: CM MET WITH PATIENT REGARDING D/C NEEDS AND PLANS. PATIENT STATED HE LIVES ALONE AND HAS 3 STEPS TO ENTER HIS HOME. PATIENT WAS INDEPENDENT WITH A SHOWERCHAIR, AND NEBULIZER AT HOME. PATIENTS PCP IS DR. TABATHA LAKE AND USES [facility] [address]. PATIENT HAS RECENTLY BEEN IN THE HOSPITAL AND STATED HE IS WORSE AND NOW WANTS HOSPICE AND WISHES TO BE A DNR. HE WANTS TO SPEAK WITH THE DOCTOR TOMORROW REGARDING HIS WISHES. HE STATED HE KNOWS HOSPICE IS END OF LIFE CARE AND STATED THAT IS WHAT HE WANTS. HE EXPLAINED HE HAS A NEIGHBOR SAL ELIZONDO AND HIS MOTHER PRICILLA NEWMAN THAT HE WANTS NOTIFIED WHEN THIS HAPPENS. THE PERSON ON HIS CONTACT LIST RYAN FAULKNER IS NO LONGER THE PERSON TO NOTIFY. CM TALKED WITH PATIENTS NURSE AND SHE KNOWS PATIENTS WISHES AND KNOWS HE WANTS TO SPEAK FIRST WITH DOCTOR TOMORROW MORNING. CM WILL CONTINUE TO FOLLOW PATIENT WITH D/C NEEDS AND PLANS. [facility] [address] PRICILLA NEWMAN (MOM) [phone] SAL ELIZONDO (FRIEND) [phone] Quality Assurance Consultant: Cindy Oconnell DCPIA - Discharge Planning Initial Assessment Updated by [email or web address]: Cindy Oconnell on 04/03/18 7:52 pm * Is the patient Alert and Oriented? Yes * How many steps to enter\exit or inside your home? * PCP DR. TABATHA LAKE * Pharmacy [facility] [address] * Preadmission Environment Home Alone * ADLs Independent * Equipment Nebulizer Shower Chair * List name and contact numbers for known caregivers / representatives who currently or will assist patient after discharge: SAL ELIZONDO (FRIEND AND NEIGHBOR) [phone] MOTHER- PRICILLA NEWMAN (LIVES IN [place]) [phone] * Verbal permission to speak to the caregivers and representatives has been obtained from the patient. Yes * Community resources currently utilized None * Additional services required to return to the preadmission environment? Yes * Can the patient safely return to the preadmission environment? No * Has this patient been hospitalized within the prior 30 days at any hospital? Yes Last DP export: 04/03/18 6:52 Patient Name: NARINDER KNOX Page 09797 at 2005 All edits/amendments must be made on the electronic document DICTATION DATE: 04/03/182003 MANAGER QUALITY SYSTEMS: JOVANA 04/03/182003 RPT#: [id number] DC DATE: STATUS: ADM IN [facility] [address] [place] [address] END OF REPORT
[2018-04-04] VITALS: BP 101/52
[2018-04-04 03:11] LABS: IMMUNOGLOBULIN E 88 IU/mL (0-100)
[2018-04-04 04:00] VITALS: BP 127/69
[2018-04-04 05:50] LABS: ALBUMIN 2.7 g/dL (3.4-5.0); ALKALINE PHOSPHATASE 26 U/L (46-116); ALT (SGPT) 212 U/L (10-68); BILIRUBIN - TOTAL 0.37 mg/dL (0.2-1.3); CALCIUM 9.4 mg/dL (8.5-10.1); CARBON DIOXIDE 39.8 mmol/L (21.0-32.0); CHLORIDE - SERUM 105 mmol/L (98-107); CREATININE - SERUM 0.9 mg/dL (0.6-1.3); PROTEIN - SERUM 5.6 g/dL (6.4-8.2); SODIUM 147 mmol/L (136-145); UREA NITROGEN 39 mg/dL (7-18); eGFR NON AFRICAN AMERICAN > 90 mL/min (90-120)
[2018-04-04 05:52] LABS: CALC OSMOLALITY 300 mosm/kg (275-300); GLUCOSE 101 mg/dL (74-106); POTASSIUM - SERUM 3.4 mmol/L (3.5-5.1)
[2018-04-04 06:24] LABS: BASOPHILS 0 % (0-2); EOSINOPHILS 0.3 % (0-7); HEMATOCRIT 38.8 % (42.0-54.0); HEMOGLOBIN 12.8 g/dL (13.5-17.5); IMMATURE GRANULOCYTES 0.7 % (0-5); LYMPHOCYTES 23.5 % (15-50); MCH 37.1 pg (26.0-34.0); MCV 112.5 fL (80.0-100.0); MEAN PLATELET VOLUME 10.9 fL (7.4-10.4); MONOCYTES 17.4 % (2-11); NEUTROPHILS 58.1 % (40-80); PLATELET COUNT 139 10x3/uL (130-400); RBC 3.45 10x6/uL (4.20-6.10); RDW 14.5 % (11.5-14.5); WBC 6.9 10x3/uL (4.8-10.8)
[2018-04-04 09:20] VITALS: BP 122/64
[2018-04-04 14:41] VITALS: BP 70/45
--- NOTE | 2018-04-04 15:39 | MORECARE ---
CASE MANAGEMENT DISCHARGE SUMMARY PATIENT: NARINDER KNOX UNIT: [id number] ADM DATE: 03/28/18 AGE: 63 : 57 SEX: M ROOM/BED: D.1207 AUTHOR: MARICHUY OHARA PHYSICIAN: REFERRING PHYSICIAN: ANA PIKE MD DATE OF SERVICE: 04/04/18 Discharge Plan Patient Name: NARINDER KNOX Facility: [facility]:[place] : 1955 Planned Disposition: Facility for hospice services Anticipated Discharge Date: 04/05/18 Discharge Date: Expected LOS: 8 Initial Reviewer: [email or web address] Initial Review Date: 04/03/2018 Generated: 04/04/18 4:39 pm Comments DCP- Discharge Planning Updated by [email or web address]: Cindy Oconnell on 04/03/18 6:[address] Patient Name: NARINDER KNOX Admission Status: ER Accout number: [id number] Admission Date: 03-28-2018 : 1955 Admission Diagnosis: Attending: ANA PIKE Current LOS: 6 Anticipated DC Date: 04-05-2018 Planned Disposition: Facility for hospice services Primary Insurance: MEDICARE A & B Discharge Planning Comments: CM MET WITH PATIENT REGARDING D/C NEEDS AND PLANS. PATIENT STATED HE LIVES ALONE AND HAS 3 STEPS TO ENTER HIS HOME. PATIENT WAS INDEPENDENT WITH A SHOWERCHAIR, AND NEBULIZER AT HOME. PATIENTS PCP IS DR. TABATHA LAKE AND USES [facility] ON [address]. PATIENT HAS RECENTLY BEEN IN THE HOSPITAL AND STATED HE IS WORSE AND NOW WANTS HOSPICE AND WISHES TO BE A DNR. HE WANTS TO SPEAK WITH THE DOCTOR TOMORROW REGARDING HIS WISHES. HE STATED HE KNOWS HOSPICE IS END OF LIFE CARE AND STATED THAT IS WHAT HE WANTS. HE EXPLAINED HE HAS A NEIGHBOR SAL ELIZONDO AND HIS MOTHER PRICILLA NEWMAN THAT HE WANTS NOTIFIED WHEN THIS HAPPENS. THE PERSON ON HIS CONTACT LIST RYAN FAULKNER IS NO LONGER THE PERSON TO NOTIFY. CM TALKED WITH PATIENTS NURSE AND SHE KNOWS PATIENTS WISHES AND KNOWS HE WANTS TO SPEAK FIRST WITH DOCTOR TOMORROW MORNING. CM WILL CONTINUE TO FOLLOW PATIENT WITH D/C NEEDS AND PLANS. [facility]CP [facility] [address] PRICILLA NEWMAN (MOM) [phone] SAL ELIZONDO (FRIEND) [phone] Revenue Director: Cindy Oconnell DCPIA - Discharge Planning Initial Assessment Updated by [id number]: Cindy Oconnell on 04/03/18 7:52 pm * Is the patient Alert and Oriented? Yes * How many steps to enter\exit or inside your home? * PCP DR. TABATHA LAKE * Pharmacy [facility] [address] * Preadmission Environment Home Alone * ADLs Independent * Equipment Nebulizer Shower Chair * List name and contact numbers for known caregivers / representatives who currently or will assist patient after discharge: SAL ELIZONDO (FRIEND AND NEIGHBOR) [phone] MOTHER- PRICILLA NEWMAN (LIVES IN [place]) [phone] * Verbal permission to speak to the caregivers and representatives has been obtained from the patient. Yes * Community resources currently utilized None * Additional services required to return to the preadmission environment? Yes * Can the patient safely return to the preadmission environment? No * Has this patient been hospitalized within the prior 30 days at any hospital? Yes External Providers External Provider: [facility] Next Contact Date: Service Request Date: Service Type: Resolution: Reviewer: Comments: Last DP export: 04/03/18 7:05 Patient Name: NARINDER KNOX Page 38513 at 1539 All edits/amendments must be made on the electronic document DICTATION DATE: 04/04/181537 START UP SPECIALIST: JOVANA 04/04/181537 RPT#: [id number] DC DATE: STATUS: ADM IN [facility] [address] [place] [address] END OF REPORT
--- NOTE | 2018-04-04 15:50 | MORECARE ---
CASE MANAGEMENT DISCHARGE SUMMARY PATIENT: NARINDER KNOX UNIT: [id number] ADM DATE: 03/28/18 AGE: 63 : 56 SEX: M ROOM/BED: D.1207 AUTHOR: MARICHUY OHARA PHYSICIAN: REFERRING PHYSICIAN: ANA PIKE MD DATE OF SERVICE: 04/04/18 Discharge Plan Patient Name: NARINDER KNOX Facility: [facility]:[place] : 1955 Planned Disposition: Facility for hospice services Anticipated Discharge Date: 04/05/18 Discharge Date: Expected LOS: 8 Initial Reviewer: [email or web address] Initial Review Date: 04/03/2018 Generated: 04/04/18 4:50 pm Comments DCP- Discharge Planning Updated by [email or web address]: Nancy Michel on 04/04/18 2:[address] CM received order for Hospice eval-inpatient. CM spoke with patient who chose [facility]. CM called and spoke with Rox at [facility] about referral. Faxed records as requested. Awaiting eval and determination. CM will continue to follow and assist as needed with discharge planning / needs. DCP- Discharge Planning Updated by [email or web address]: Cindy Oconnell on 04/03/18 6:[address] Patient Name: NARINDER KNOX Admission Status: ER Accout number: [id number] Admission Date: 03-28-2018 : 1955 Admission Diagnosis: Attending: ANA PIKE Current LOS: 6 Anticipated DC Date: 04-05-2018 Planned Disposition: Facility for hospice services Primary Insurance: MEDICARE A & B Discharge Planning Comments: CM MET WITH PATIENT REGARDING D/C NEEDS AND PLANS. PATIENT STATED HE LIVES ALONE AND HAS 3 STEPS TO ENTER HIS HOME. PATIENT WAS INDEPENDENT WITH A SHOWERCHAIR, AND NEBULIZER AT HOME. PATIENTS PCP IS DR. TABATHA LAKE AND USES [facility] ON [address]. PATIENT HAS RECENTLY BEEN IN THE HOSPITAL AND STATED HE IS WORSE AND NOW WANTS HOSPICE AND WISHES TO BE A DNR. HE WANTS TO SPEAK WITH THE DOCTOR TOMORROW REGARDING HIS WISHES. HE STATED HE KNOWS HOSPICE IS END OF LIFE CARE AND STATED THAT IS WHAT HE WANTS. HE EXPLAINED HE HAS A NEIGHBOR SAL ELIZONDO AND HIS MOTHER PRICILLA NEWMAN THAT HE WANTS NOTIFIED WHEN THIS HAPPENS. THE PERSON ON HIS CONTACT LIST RYAN FAULKNER IS NO LONGER THE PERSON TO NOTIFY. CM TALKED WITH PATIENTS NURSE AND SHE KNOWS PATIENTS WISHES AND KNOWS HE WANTS TO SPEAK FIRST WITH DOCTOR TOMORROW MORNING. CM WILL CONTINUE TO FOLLOW PATIENT WITH D/C NEEDS AND PLANS. [facility]CP [facility] [address] PRICILLA NEWMAN (MOM) [phone] SAL ELIZONDO (FRIEND) [phone] Bat Lathe Operator: Cindy Oconnell DCPIA - Discharge Planning Initial Assessment Updated by [email or web address]: Cindy Oconnell on 04/03/18 7:52 pm * Is the patient Alert and Oriented? Yes * How many steps to enter\exit or inside your home? * PCP DR. TABATHA LAKE * Pharmacy [facility] [address] * Preadmission Environment Home Alone * ADLs Independent * Equipment Nebulizer Shower Chair * List name and contact numbers for known caregivers / representatives who currently or will assist patient after discharge: SAL ELIZONDO (FRIEND AND NEIGHBOR) [phone] MOTHER- PRICILLA NEWMAN (LIVES IN [place]) [phone] * Verbal permission to speak to the caregivers and representatives has been obtained from the patient. Yes * Community resources currently utilized None * Additional services required to return to the preadmission environment? Yes * Can the patient safely return to the preadmission environment? No * Has this patient been hospitalized within the prior 30 days at any hospital? Yes Last DP export: 04/04/18 2:39 Patient Name: NARINDER KNXO Page [id number] at 1550 All edits/amendments must be made on the electronic document DICTATION DATE: 04/04/18 1550 GROUP BURNER MACHINE: JOVANA 04/04/18 1550 RPT#: [id number] [place] DATE: STATUS: ADM IN [facility] [address] [place] [address] END OF REPORT
[2018-04-04 16:12] VITALS: BP 102/64
[2018-04-04 20:00] VITALS: BP 107/62
[2018-04-05] VITALS: BP 104/67
[2018-04-05 04:00] VITALS: BP 114/57
[2018-04-05 06:51] LABS: BASOPHILS 0 % (0-2); EOSINOPHILS 0 % (0-7); HEMATOCRIT 36.7 % (42.0-54.0); HEMOGLOBIN 12.1 g/dL (13.5-17.5); IMMATURE GRANULOCYTES 0.6 % (0-5); LYMPHOCYTES 14.1 % (15-50); MCH 36.4 pg (26.0-34.0); MEAN PLATELET VOLUME 10.6 fL (7.4-10.4); MONOCYTES 13.5 % (2-11); NEUTROPHILS 71.8 % (40-80); PLATELET COUNT 146 10x3/uL (130-400); RBC 3.32 10x6/uL (4.20-6.10); RDW 14.1 % (11.5-14.5); WBC 7.1 10x3/uL (4.8-10.8)
[2018-04-05 07:01] LABS: ALBUMIN 2.5 g/dL (3.4-5.0); ALKALINE PHOSPHATASE 33 U/L (46-116); ALT (SGPT) 205 U/L (10-68); BILIRUBIN - TOTAL 0.29 mg/dL (0.2-1.3); CALC OSMOLALITY 294 mosm/kg (275-300); CALCIUM 8.7 mg/dL (8.5-10.1); CARBON DIOXIDE 33.9 mmol/L (21.0-32.0); CHLORIDE - SERUM 103 mmol/L (98-107); CREATININE - SERUM 0.7 mg/dL (0.6-1.3); POTASSIUM - SERUM 3.8 mmol/L (3.5-5.1); PROTEIN - SERUM 5.2 g/dL (6.4-8.2); SODIUM 140 mmol/L (136-145); UREA NITROGEN 34 mg/dL (7-18); eGFR NON AFRICAN AMERICAN > 90 mL/min (90-120)
[2018-04-05 07:02] LABS: GLUCOSE 238 mg/dL (74-106)
[2018-04-05 07:07] LABS: MCV 110.5 fL (80.0-100.0)
[2018-04-05 11:33] VITALS: BP 101/59
[2018-04-05 19:40] VITALS: BP 122/66
[2018-04-05 23:55] VITALS: BP 100/59
[2018-04-06 03:45] VITALS: BP 121/57
[2018-04-06 06:47] LABS: BASOPHILS 0.1 % (0-2); EOSINOPHILS 0.1 % (0-7); HEMATOCRIT 39.1 % (42.0-54.0); HEMOGLOBIN 12.7 g/dL (13.5-17.5); LYMPHOCYTES 16.6 % (15-50); MCH 36.3 pg (26.0-34.0); MCHC 32.5 g/dL (31.0-37.0); MCV 111.7 fL (80.0-100.0); MEAN PLATELET VOLUME 10.1 fL (7.4-10.4); MONOCYTES 15.6 % (2-11); NEUTROPHILS 66.6 % (40-80); PLATELET COUNT 154 10x3/uL (130-400); RDW 14.3 % (11.5-14.5); WBC 6.7 10x3/uL (4.8-10.8)
[2018-04-06 07:11] LABS: ALBUMIN 2.7 g/dL (3.4-5.0); ALKALINE PHOSPHATASE 32 U/L (46-116); ALT (SGPT) 220 U/L (10-68); BILIRUBIN - TOTAL 0.28 mg/dL (0.2-1.3); CALC OSMOLALITY 296 mosm/kg (275-300); CALCIUM 8.7 mg/dL (8.5-10.1); CARBON DIOXIDE 37.8 mmol/L (21.0-32.0); CHLORIDE - SERUM 104 mmol/L (98-107); CREATININE - SERUM 0.7 mg/dL (0.6-1.3); GLUCOSE 193 mg/dL (74-106); POTASSIUM - SERUM 4.2 mmol/L (3.5-5.1); PROTEIN - SERUM 5.6 g/dL (6.4-8.2); SODIUM 143 mmol/L (136-145); UREA NITROGEN 31 mg/dL (7-18); eGFR NON AFRICAN AMERICAN > 90 mL/min (90-120)
[2018-04-06 08:00] VITALS: BP 119/69
[2018-04-06 16:00] VITALS: BP 130/63
[2018-04-06 16:36] VITALS: BP 100/54
[2018-04-06 20:00] VITALS: BP 115/39
[2018-04-07] VITALS: BP 96/41
[2018-04-07 04:00] VITALS: BP 98/53
[2018-04-07 07:04] LABS: BASOPHILS 0.2 % (0-2); EOSINOPHILS 0 % (0-7); HEMATOCRIT 39.1 % (42.0-54.0); HEMOGLOBIN 12.8 g/dL (13.5-17.5); IMMATURE GRANULOCYTES 1.5 % (0-5); LYMPHOCYTES 20.3 % (15-50); MCH 36.3 pg (26.0-34.0); MCHC 32.7 g/dL (31.0-37.0); MCV 110.8 fL (80.0-100.0); MEAN PLATELET VOLUME 10.4 fL (7.4-10.4); MONOCYTES 11.1 % (2-11); NEUTROPHILS 66.9 % (40-80); PLATELET COUNT 178 10x3/uL (130-400); RBC 3.53 10x6/uL (4.20-6.10); RDW 14.1 % (11.5-14.5)
[2018-04-07 07:17] LABS: ALBUMIN 2.9 g/dL (3.4-5.0); ALKALINE PHOSPHATASE 34 U/L (46-116); ALT (SGPT) 196 U/L (10-68); BILIRUBIN - TOTAL 0.23 mg/dL (0.2-1.3); CALCIUM 8.9 mg/dL (8.5-10.1); CHLORIDE - SERUM 106 mmol/L (98-107); CREATININE - SERUM 0.8 mg/dL (0.6-1.3); PROTEIN - SERUM 6.1 g/dL (6.4-8.2); SODIUM 144 mmol/L (136-145); UREA NITROGEN 30 mg/dL (7-18); eGFR NON AFRICAN AMERICAN > 90 mL/min (90-120)
[2018-04-07 07:18] LABS: CALC OSMOLALITY 291 mosm/kg (275-300); GLUCOSE 83 mg/dL (74-106); POTASSIUM - SERUM 3.5 mmol/L (3.5-5.1)
--- NOTE | 2018-04-07 12:14 | MORECARE ---
CASE MANAGEMENT DISCHARGE SUMMARY PATIENT: NARINDER KNOX UNIT: [id number] ADM DATE: 03/28/18 AGE: 63 : 57 SEX: M ROOM/BED: D.1207 AUTHOR: MARICHUY OHARA PHYSICIAN: REFERRING PHYSICIAN: ANA PIKE MD DATE OF SERVICE: 04/07/18 Discharge Plan Patient Name: NARINDER KNOX Facility: [facility]:[place] : 1955 Planned Disposition: Facility for hospice services Anticipated Discharge Date: 04/05/18 Discharge Date: Expected LOS: 8 Initial Reviewer: [email or web address] Initial Review Date: 04/03/2018 Generated: 04/07/18 1:14 pm Comments DCP- Discharge Planning Updated by [id number]: Nancy Michel on 04/04/18 2:[address] CM received order for Hospice eval-inpatient. CM spoke with patient who chose [facility]. CM called and spoke with Rox at [facility] about referral. Faxed records as requested. Awaiting eval and determination. CM will continue to follow and assist as needed with discharge planning / needs. DCP- Discharge Planning Updated by [email or web address]: Cindy Oconnell on 04/03/18 6:[address] Patient Name: NARINDER KNOX Admission Status: ER Accout number: [id number] Admission Date: 03-28-2018 : 1955 Admission Diagnosis: Attending: ANA PIKE Current LOS: 6 Anticipated DC Date: 04-05-2018 Planned Disposition: Facility for hospice services Primary Insurance: MEDICARE A & B Discharge Planning Comments: CM MET WITH PATIENT REGARDING D/C NEEDS AND PLANS. PATIENT STATED HE LIVES ALONE AND HAS 3 STEPS TO ENTER HIS HOME. PATIENT WAS INDEPENDENT WITH A SHOWERCHAIR, AND NEBULIZER AT HOME. PATIENTS PCP IS DR. TABATHA LAKE AND USES [facility] [address]. PATIENT HAS RECENTLY BEEN IN THE HOSPITAL AND STATED HE IS WORSE AND NOW WANTS HOSPICE AND WISHES TO BE A DNR. HE WANTS TO SPEAK WITH THE DOCTOR TOMORROW REGARDING HIS WISHES. HE STATED HE KNOWS HOSPICE IS END OF LIFE CARE AND STATED THAT IS WHAT HE WANTS. HE EXPLAINED HE HAS A NEIGHBOR SAL ELIZONDO AND HIS MOTHER PRICILLA NEWMAN THAT HE WANTS NOTIFIED WHEN THIS HAPPENS. THE PERSON ON HIS CONTACT LIST RYAN FAULKNER IS NO LONGER THE PERSON TO NOTIFY. CM TALKED WITH PATIENTS NURSE AND SHE KNOWS PATIENTS WISHES AND KNOWS HE WANTS TO SPEAK FIRST WITH DOCTOR TOMORROW MORNING. CM WILL CONTINUE TO FOLLOW PATIENT WITH D/C NEEDS AND PLANS. [facility]CP [facility] [address] PRICILLA NEWMAN (MOM) [phone] SAL ELIZONDO (FRIEND) [phone] Blade Balancer: Cindy Oconnell DCPIA - Discharge Planning Initial Assessment Updated by [email or web address]: Cindy Oconnell on 04/03/18 7:52 pm * Is the patient Alert and Oriented? Yes * How many steps to enter\exit or inside your home? * PCP DR. TABATHA LAKE * Pharmacy [facility] [address] * Preadmission Environment Home Alone * ADLs Independent * Equipment Nebulizer Shower Chair * List name and contact numbers for known caregivers / representatives who currently or will assist patient after discharge: SAL ELIZONDO (FRIEND AND NEIGHBOR) [phone] MOTHER- PRICILLA NEWMAN (LIVES IN [place]) [phone] * Verbal permission to speak to the caregivers and representatives has been obtained from the patient. Yes * Community resources currently utilized None * Additional services required to return to the preadmission environment? Yes * Can the patient safely return to the preadmission environment? No * Has this patient been hospitalized within the prior 30 days at any hospital? Yes External Providers External Provider: OTHER-OTHER Next Contact Date: Service Request Date: Service Type: Resolution: Reviewer: Comments: Last DP export: 04/04/18 2:50 Patient Name: NARINDER KNOX Page 03653 at 1214 All edits/amendments must be made on the electronic document DICTATION DATE: 04/07/181213 CARPENTERS HELPER: JOVANA 04/07/181213 RPT#: [id number] DC DATE: STATUS: ADM IN [facility] [address] [place] [address] END OF REPORT
--- NOTE | 2018-04-07 12:23 | MORECARE ---
CASE MANAGEMENT DISCHARGE SUMMARY PATIENT: NARINDER KNOX UNIT: [id number] ADM DATE: 03/28/18 AGE: 63 : 57 SEX: M ROOM/BED: D.1207 AUTHOR: MARICHUY OHARA PHYSICIAN: REFERRING PHYSICIAN: ANA PIKE MD DATE OF SERVICE: 04/07/18 Discharge Plan Patient Name: NARINDER KNOX Facility: [facility]:[place] : 1955 Planned Disposition: Facility for hospice services Anticipated Discharge Date: 04/05/18 Discharge Date: Expected LOS: 8 Initial Reviewer: [email or web address] Initial Review Date: 04/03/2018 Generated: 04/07/18 1:23 pm Comments DCP- Discharge Planning Updated by [email or web address]: Nancy Michel on 04/07/18 11:[address] CM followed up on status of discharge with hospice. Spoke with [facility] who stated patient did not qualify for inpatient hospice, but would qualify for hospice in home / skilled nursing. CM spoke with patient who states he wants to go to a skilled nursing with hospice. States he does not care which skilled nursing. CM called Beata Bullard, clinical liaison with [facility] about referral. Faxed records as requested. Jayla will see patient today. DCP- Discharge Planning Updated by [id number]: Nancy Michel on 04/04/18 2:[address] CM received order for Hospice eval-inpatient. CM spoke with patient who chose [facility]. CM called and spoke with Rox at [facility] about referral. Faxed records as requested. Awaiting eval and determination. CM will continue to follow and assist as needed with discharge planning / needs. DCP- Discharge Planning Updated by [id number]: Cindy Oconnell on 04/03/18 6:[address] Patient Name: NARINDER KNOX Admission Status: ER Accout number: [id number] Admission Date: 03-28-2018 : 1955 Admission Diagnosis: Attending: ANA PIKE Current LOS: 6 Anticipated DC Date: 04-05-2018 Planned Disposition: Facility for hospice services Primary Insurance: MEDICARE A & B Discharge Planning Comments: CM MET WITH PATIENT REGARDING D/C NEEDS AND PLANS. PATIENT STATED HE LIVES ALONE AND HAS 3 STEPS TO ENTER HIS HOME. PATIENT WAS INDEPENDENT WITH A SHOWERCHAIR, AND NEBULIZER AT HOME. PATIENTS PCP IS DR. TABATHA LAKE AND USES [facility] [address]. PATIENT HAS RECENTLY BEEN IN THE HOSPITAL AND STATED HE IS WORSE AND NOW WANTS HOSPICE AND WISHES TO BE A DNR. HE WANTS TO SPEAK WITH THE DOCTOR TOMORROW REGARDING HIS WISHES. HE STATED HE KNOWS HOSPICE IS END OF LIFE CARE AND STATED THAT IS WHAT HE WANTS. HE EXPLAINED HE HAS A NEIGHBOR SAL ELIZONDO AND HIS MOTHER PRICILLA NEWMAN THAT HE WANTS NOTIFIED WHEN THIS HAPPENS. THE PERSON ON HIS CONTACT LIST RYAN KAUSHIK IS NO LONGER THE PERSON TO NOTIFY. CM TALKED WITH PATIENTS NURSE AND SHE KNOWS PATIENTS WISHES AND KNOWS HE WANTS TO SPEAK FIRST WITH DOCTOR TOMORROW MORNING. CM WILL CONTINUE TO FOLLOW PATIENT WITH D/C NEEDS AND PLANS. [facility] [address] PRICILLA NEWMAN (MOM) [phone] SAL ELIZONDO (FRIEND) [phone] Farm Appraiser: Cindy Oconnell DCPIA - Discharge Planning Initial Assessment Updated by [email or web address]: Cindy Oconnell on 04/03/18 7:52 pm * Is the patient Alert and Oriented? Yes * How many steps to enter\exit or inside your home? * PCP DR. TABATHA LAKE * Pharmacy [facility] [address] * Preadmission Environment Home Alone * ADLs Independent * Equipment Nebulizer Shower Chair * List name and contact numbers for known caregivers / representatives who currently or will assist patient after discharge: SAL ELIZONDO (FRIEND AND NEIGHBOR) [phone] MOTHER- PRICILLA NEWMAN (LIVES IN [place]) [phone] * Verbal permission to speak to the caregivers and representatives has been obtained from the patient. Yes * Community resources currently utilized None * Additional services required to return to the preadmission environment? Yes * Can the patient safely return to the preadmission environment? No * Has this patient been hospitalized within the prior 30 days at any hospital? Yes Last DP export: 04/07/18 11:14 Patient Name: NARINDER KNOX Page [id number] at 1223 All edits/amendments must be made on the electronic document DICTATION DATE: 04/07/18 122 ADDICTION MEDICINE PHYSICIAN: JOVANA 04/07/18 122 RPT#: [id number] DC DATE: STATUS: ADM IN [facility] [address] [place] [address] END OF REPORT
--- NOTE | 2018-04-07 14:00 | MORECARE ---
CASE MANAGEMENT DISCHARGE SUMMARY PATIENT: NARINDER KNOX UNIT: [id number] ADM DATE: 03/28/18 AGE: 63 : 57 SEX: M ROOM/BED: D.1207 AUTHOR: MARICHUY OHARA PHYSICIAN: REFERRING PHYSICIAN: ANA PIKE MD DATE OF SERVICE: 04/07/18 Discharge Plan Patient Name: NARINDER KNOX Facility: [facility]:[place] : 1955 Planned Disposition: Facility for hospice services Anticipated Discharge Date: 04/05/18 Discharge Date: Expected LOS: 8 Initial Reviewer: [email or web address] Initial Review Date: 04/03/2018 Generated: 04/07/18 3:00 pm Comments DCP- Discharge Planning Updated by [email or web address]: Nancy Michel on 04/07/18 11:[address] CM followed up on status of discharge with hospice. Spoke with [facility] who stated patient did not qualify for inpatient hospice, but would qualify for hospice in home / half-way. CM spoke with patient who states he wants to go to a half-way with hospice. States he does not care which half-way. CM called Beata Bullard, clinical liaison with [facility] about referral. Faxed records as requested. Jayla will see patient today. DCP- Discharge Planning Updated by [email or web address]: Nancy Michel on 04/04/18 2:[address] CM received order for Hospice eval-inpatient. CM spoke with patient who chose [facility]. CM called and spoke with Rox at [facility] about referral. Faxed records as requested. Awaiting eval and determination. CM will continue to follow and assist as needed with discharge planning / needs. DCP- Discharge Planning Updated by [email or web address]: Cindy Oconnell on 04/03/18 6:[address] Patient Name: NARINDER KNOX Admission Status: ER Accout number: [id number] Admission Date: 03-28-2018 : 1955 Admission Diagnosis: Attending: ANA PIKE Current LOS: 6 Anticipated DC Date: 04-05-2018 Planned Disposition: Facility for hospice services Primary Insurance: MEDICARE A & B Discharge Planning Comments: CM MET WITH PATIENT REGARDING D/C NEEDS AND PLANS. PATIENT STATED HE LIVES ALONE AND HAS 3 STEPS TO ENTER HIS HOME. PATIENT WAS INDEPENDENT WITH A SHOWERCHAIR, AND NEBULIZER AT HOME. PATIENTS PCP IS DR. TABATHA LAKE AND USES [facility] [address]. PATIENT HAS RECENTLY BEEN IN THE HOSPITAL AND STATED HE IS WORSE AND NOW WANTS HOSPICE AND WISHES TO BE A DNR. HE WANTS TO SPEAK WITH THE DOCTOR TOMORROW REGARDING HIS WISHES. HE STATED HE KNOWS HOSPICE IS END OF LIFE CARE AND STATED THAT IS WHAT HE WANTS. HE EXPLAINED HE HAS A NEIGHBOR SAL ELIZONDO AND HIS MOTHER PRICILLA NEWMAN THAT HE WANTS NOTIFIED WHEN THIS HAPPENS. THE PERSON ON HIS CONTACT LIST RYAN KAUSHIK IS NO LONGER THE PERSON TO NOTIFY. CM TALKED WITH PATIENTS NURSE AND SHE KNOWS PATIENTS WISHES AND KNOWS HE WANTS TO SPEAK FIRST WITH DOCTOR TOMORROW MORNING. CM WILL CONTINUE TO FOLLOW PATIENT WITH D/C NEEDS AND PLANS. [facility]CP [facility] [address] PRICILLA NEWMAN (MOM) [phone] SAL ELIZONDO (FRIEND) [phone] Finisher Wallboard And Plasterboard: Cindy Oconnell DCPIA - Discharge Planning Initial Assessment Updated by [email or web address]: Cindy Oconnell on 04/03/18 7:52 pm * Is the patient Alert and Oriented? Yes * How many steps to enter\exit or inside your home? * PCP DR. TABATHA LAKE * Pharmacy [facility] [address] * Preadmission Environment Home Alone * ADLs Independent * Equipment Nebulizer Shower Chair * List name and contact numbers for known caregivers / representatives who currently or will assist patient after discharge: SAL ELIZONDO (FRIEND AND NEIGHBOR) [phone] MOTHER- PRICILLA NEWMAN (LIVES IN [place]) [phone] * Verbal permission to speak to the caregivers and representatives has been obtained from the patient. Yes * Community resources currently utilized None * Additional services required to return to the preadmission environment? Yes * Can the patient safely return to the preadmission environment? No * Has this patient been hospitalized within the prior 30 days at any hospital? Yes Last DP export: 04/07/18 11:23 Patient Name: NARINDER KNOX Page [id number] at 1400 All edits/amendments must be made on the electronic document DICTATION DATE: 04/07/18 1352 PHOTO FINISH PHOTOGRAPHER: JOVANA 04/07/18 135 RPT#: [id number] DC DATE: STATUS: ADM IN [facility] [address] [place] [address] END OF REPORT
--- NOTE | 2018-04-07 14:27 | MORECARE ---
CASE MANAGEMENT DISCHARGE SUMMARY PATIENT: NARINDER KNOX UNIT: [id number] ADM DATE: 03/28/18 AGE: 63 : 57 SEX: M ROOM/BED: D.1207 AUTHOR: MAYDA,DOC PHYSICIAN: REFERRING PHYSICIAN: ANA PIKE MD DATE OF SERVICE: 04/07/18 Discharge Plan Patient Name: NARINDER KNOX Facility: [facility]:[place] : 1955 Planned Disposition: Facility for hospice services Anticipated Discharge Date: 04/05/18 Discharge Date: Expected LOS: 8 Initial Reviewer: [email or web address] Initial Review Date: 04/03/2018 Generated: 04/07/18 3:26 pm Comments DCP- Discharge Planning Updated by [email or web address]: Nancy Michel on 04/07/18 1:[address] CM informed by Beata Bullard that patient does not want to give up his check for long-term placement. MIRIAM, Beata Bullard, and Mitchell Landers with [facility] all met with patient about his discharge plans. Patient confirms that he does not want to give up his check to live in the long-term. States he wants to discharge to home. States he doesn't want Hospice at this time, but will call [facility] if he changes his mind after he goes home. CM will continue to follow and assist as needed with discharge planning / needs. DCP- Discharge Planning Updated by [email or web address]: Nancy Michel on 04/07/18 11:[address] CM followed up on status of discharge with hospice. Spoke with [facility] who stated patient did not qualify for inpatient hospice, but would qualify for hospice in home / long-term. CM spoke with patient who states he wants to go to a long-term with hospice. States he does not care which long-term. MIRIAM called Beata Bullard, clinical liaison with [facility] about referral. Faxed records as requested. Jayla will see patient today. DCP- Discharge Planning Updated by [email or web address]: Nancy Michel on 04/04/18 2:[address] CM received order for Hospice eval-inpatient. CM spoke with patient who chose [facility]. CM called and spoke with Rox at [facility] about referral. Faxed records as requested. Awaiting eval and determination. CM will continue to follow and assist as needed with discharge planning / needs. DCP- Discharge Planning Updated by [id number]: Cindy Oconnell on 04/03/18 6:[address] Patient Name: NARINDER KNOX Admission Status: ER Accout number: [id number] Admission Date: 03-28-2018 : 1955 Admission Diagnosis: Attending: ANA PIKE Current LOS: 6 Anticipated DC Date: 04-05-2018 Planned Disposition: Facility for hospice services Primary Insurance: MEDICARE A & B Discharge Planning Comments: CM MET WITH PATIENT REGARDING D/C NEEDS AND PLANS. PATIENT STATED HE LIVES ALONE AND HAS 3 STEPS TO ENTER HIS HOME. PATIENT WAS INDEPENDENT WITH A SHOWERCHAIR, AND NEBULIZER AT HOME. PATIENTS PCP IS DR. TABATHA LAKE AND USES [facility] [address]. PATIENT HAS RECENTLY BEEN IN THE HOSPITAL AND STATED HE IS WORSE AND NOW WANTS HOSPICE AND WISHES TO BE A DNR. HE WANTS TO SPEAK WITH THE DOCTOR TOMORROW REGARDING HIS WISHES. HE STATED HE KNOWS HOSPICE IS END OF LIFE CARE AND STATED THAT IS WHAT HE WANTS. HE EXPLAINED HE HAS A NEIGHBOR SAL ELIZONDO AND HIS MOTHER PRICILLA NEWMAN THAT HE WANTS NOTIFIED WHEN THIS HAPPENS. THE PERSON ON HIS CONTACT LIST RYAN MARTELLBUD IS NO LONGER THE PERSON TO NOTIFY. CM TALKED WITH PATIENTS NURSE AND SHE KNOWS PATIENTS WISHES AND KNOWS HE WANTS TO SPEAK FIRST WITH DOCTOR TOMORROW MORNING. CM WILL CONTINUE TO FOLLOW PATIENT WITH D/C NEEDS AND PLANS. [facility]CP [facility] [address] PRICILLA NEWMAN (MOM) [phone] SAL ELIZONDO (FRIEND) [phone] Layout Inspector: Cindy Oconnell DCPIA - Discharge Planning Initial Assessment Updated by [email or web address]: Cindy Oconnell on 04/03/18 7:52 pm * Is the patient Alert and Oriented? Yes * How many steps to enter\exit or inside your home? * PCP DR. TABATHA LAKE * Pharmacy [facility] [address] * Preadmission Environment Home Alone * ADLs Independent * Equipment Nebulizer Shower Chair * List name and contact numbers for known caregivers / representatives who currently or will assist patient after discharge: SAL ELIZONDO (FRIEND AND NEIGHBOR) [phone] MOTHER- PRICILLA NEWMAN (LIVES IN [place]) [phone] * Verbal permission to speak to the caregivers and representatives has been obtained from the patient. Yes * Community resources currently utilized None * Additional services required to return to the preadmission environment? Yes * Can the patient safely return to the preadmission environment? No * Has this patient been hospitalized within the prior 30 days at any hospital? Yes Last DP export: 04/07/18 1:00 Patient Name: NARINDER KNOX Page [id number] at 1427 All edits/amendments must be made on the electronic document DICTATION DATE: 04/07/181425 RETIREMENT PLAN COUNSELOR: JOVANA 04/07/181425 RPT#: [id number] DC DATE: STATUS: ADM IN [facility] [address] [place] [address] END OF REPORT
[2018-04-07 16:06] VITALS: BP 110/68
[2018-04-07 16:20] VITALS: BP 114/54
[2018-04-07 20:00] VITALS: BP 140/50
[2018-04-08] VITALS: BP 112/49
[2018-04-08 04:00] VITALS: BP 152/50
[2018-04-08 07:11] LABS: BASOPHILS 0.2 % (0-2); EOSINOPHILS 0 % (0-7); HEMATOCRIT 36.5 % (42.0-54.0); HEMOGLOBIN 11.9 g/dL (13.5-17.5); IMMATURE GRANULOCYTES 1.7 % (0-5); LYMPHOCYTES 13.3 % (15-50); MCH 36.3 pg (26.0-34.0); MCHC 32.6 g/dL (31.0-37.0); MCV 111.3 fL (80.0-100.0); MEAN PLATELET VOLUME 10.1 fL (7.4-10.4); MONOCYTES 12.3 % (2-11); NEUTROPHILS 72.5 % (40-80); PLATELET COUNT 184 10x3/uL (130-400); RBC 3.28 10x6/uL (4.20-6.10); RDW 14.2 % (11.5-14.5)
[2018-04-08 07:34] LABS: ALBUMIN 2.4 g/dL (3.4-5.0); ALKALINE PHOSPHATASE 26 U/L (46-116); ALT (SGPT) 154 U/L (10-68); BILIRUBIN - TOTAL 0.24 mg/dL (0.2-1.3); CALCIUM 8.6 mg/dL (8.5-10.1); CARBON DIOXIDE 35.4 mmol/L (21.0-32.0); CHLORIDE - SERUM 105 mmol/L (98-107); CREATININE - SERUM 0.6 mg/dL (0.6-1.3); PROTEIN - SERUM 5.1 g/dL (6.4-8.2); SODIUM 144 mmol/L (136-145); UREA NITROGEN 28 mg/dL (7-18); eGFR NON AFRICAN AMERICAN > 90 mL/min (90-120)
[2018-04-08 07:39] LABS: CALC OSMOLALITY 294 mosm/kg (275-300); GLUCOSE 135 mg/dL (74-106)
[2018-04-08 08:28] VITALS: BP 110/70
[2018-04-08] MEDS ORDERED: IPRAT-ALBUT 0.5-3 ML INH (09:32)
[2018-04-08] MEDS ORDERED: Lanoxin PO ×2 (09:32→09:43)
[2018-04-08] MEDS ORDERED: COREG 3.1253.125 MG PO (09:32)
[2018-04-08] MEDS ORDERED: CELEXA20 MG PO (09:34)
[2018-04-08] MEDS ORDERED: LASIX20 MG PO (09:34)
[2018-04-08] MEDS ORDERED: LANOXIN125 MCG PO (09:34)
[2018-04-08] MEDS ORDERED: PROTONIX40 MG PO (09:35)
[2018-04-08] MEDS ORDERED: DIAMOX250 MG PO (09:35)
[2018-04-08] MEDS ORDERED: SINGULAIR10 MG PO (09:35)
[2018-04-08] MEDS ORDERED: PULMICORT0.5 MG/21 UPD (09:35)
[2018-04-08] MEDS ORDERED: DALIRESP500 MCG PO (09:35)
[2018-04-08] MEDS ORDERED: STERAPRED DS 1210 MG PO (09:39)
[2018-04-08] MEDS ORDERED: FOLIC ACID1 MG PO (09:39)
[2018-04-08] MEDS ORDERED: THERAGRAN M [BK1 TAB PO (09:39)
[2018-04-08] MEDS ORDERED: THIAMINE HCL50 MG PO (09:39)
--- NOTE | 2018-04-08 12:36 | MORECARE ---
CASE MANAGEMENT DISCHARGE SUMMARY PATIENT: NARINDER KNOX UNIT: [id number] ADM DATE: 03/28/18 AGE: 63 : 57 SEX: M ROOM/BED: D.1207 AUTHOR: MAYDA,DOC PHYSICIAN: REFERRING PHYSICIAN: ANA PIKE MD DATE OF SERVICE: 04/08/18 Discharge Plan Patient Name: NARINDER KNOX Facility: [facility]:[place] : 1955 Planned Disposition: Facility for hospice services Anticipated Discharge Date: 04/05/18 Discharge Date: Expected LOS: 8 Initial Reviewer: [email or web address] Initial Review Date: 04/03/2018 Generated: 04/08/18 1:36 pm Comments DCP- Discharge Planning Updated by [email or web address]: Christina Waterman on 04/08/18 11:[address] LATE ENTRY 1040 CM SPOKE WITH THE PATIENT REGARDING HOME HEALTH. HE WILL ACCEPT HOME HEALTH. DISCUSSED HOME HEALTH PROVIDERS. HE SELECTED [facility].HE IS PRESENTLY RECEIVING CARE WITH [facility]. CM WILL CALL TO VERIFY STATUS. CM NOTED IS PATIENT IS WEARING NASAL OXYGEN AT 2-3 LITERS. PER HIS NOTE, HE IS DOES NOT HAVE HOME OXYGEN THERAPY. CM DISCUSSED WITH HIS NURSE. REQUESTED RM AIR SATS. TC TO SUSANNA AT [facility]. SHE STATES PATIENT IS ON ACTIVE SERVICE. SHE STATES CM TO TELL HIM THE NURSE WILL SEE HIM TOMORROW. 04/09/18. CM FAXED CLINICAL UPDATE. RECEIVED CB FROM [facility]. THE PATIENT'S OXYGEN DROPPED TO 87% ON RM AIR WITH ACTIVITY. RECOVERED TO 92 % WHEN 2/L NASAL O2 APPLIED. TC TO [facility]. REC CB. THE [facility] WILL DELIVER THE OXYGEN WITHIN AN HOUR. CM TO FAX ORDERS TO [facility] [place] OFFICE. DCP- Discharge Planning Updated by [id number]: Nancy Michel on 04/07/18 1:[address] CM informed by Beata Bullard that patient does not want to give up his check for assisted placement. MIRIAM, Beata Bullard, and Mitchell Landers with [facility] all met with patient about his discharge plans. Patient confirms that he does not want to give up his check to live in the assisted. States he wants to discharge to home. States he doesn't want Hospice at this time, but will call [facility] if he changes his mind after he goes home. CM will continue to follow and assist as needed with discharge planning / needs. DCP- Discharge Planning Updated by [id number]: Nancyzack Michel on 04/07/18 11:[address] CM followed up on status of discharge with hospice. Spoke with [facility] who stated patient did not qualify for inpatient hospice, but would qualify for hospice in home / assisted. CM spoke with patient who states he wants to go to a assisted with hospice. States he does not care which assisted. CM called Beata Bullard, clinical liaison with [facility] about referral. Faxed records as requested. Jayla will see patient today. DCP- Discharge Planning Updated by [id number]: Nancy Michel on 04/04/18 2:[address] CM received order for Hospice eval-inpatient. CM spoke with patient who chose [facility]. CM called and spoke with Rox at [facility] about referral. Faxed records as requested. Awaiting eval and determination. CM will continue to follow and assist as needed with discharge planning / needs. DCP- Discharge Planning Updated by [email or web address]: Cindy Oconnell on 04/03/18 6:[address] Patient Name: NARINDER KNOX Admission Status: ER Accout number: [id number] Admission Date: 03-28-2018 : 1955 Admission Diagnosis: Attending: ANA PIKE Current LOS: 6 Anticipated DC Date: 04-05-2018 Planned Disposition: Facility for hospice services Primary Insurance: MEDICARE A & B Discharge Planning Comments: CM MET WITH PATIENT REGARDING D/C NEEDS AND PLANS. PATIENT STATED HE LIVES ALONE AND HAS 3 STEPS TO ENTER HIS HOME. PATIENT WAS INDEPENDENT WITH A SHOWERCHAIR, AND NEBULIZER AT HOME. PATIENTS PCP IS DR. TABATHA LAKE AND USES [facility] [address]. PATIENT HAS RECENTLY BEEN IN THE HOSPITAL AND STATED HE IS WORSE AND NOW WANTS HOSPICE AND WISHES TO BE A DNR. HE WANTS TO SPEAK WITH THE DOCTOR TOMORROW REGARDING HIS WISHES. HE STATED HE KNOWS HOSPICE IS END OF LIFE CARE AND STATED THAT IS WHAT HE WANTS. HE EXPLAINED HE HAS A NEIGHBOR SAL ELIZONDO AND HIS MOTHER PRICILLA NEWMAN THAT HE WANTS NOTIFIED WHEN THIS HAPPENS. THE PERSON ON HIS CONTACT LIST RYAN FAULKNER IS NO LONGER THE PERSON TO NOTIFY. CM TALKED WITH PATIENTS NURSE AND SHE KNOWS PATIENTS WISHES AND KNOWS HE WANTS TO SPEAK FIRST WITH DOCTOR TOMORROW MORNING. CM WILL CONTINUE TO FOLLOW PATIENT WITH D/C NEEDS AND PLANS. [facility]CP [facility] [address] PRICILLA NEWMAN (MOM) [phone] SAL ELIZONDO (FRIEND) [phone] [employer] Spanish Teacher: Cindy Oconnell DCPIA - Discharge Planning Initial Assessment Updated by [id number]: Cindy Oconnell on 04/03/18 7:52 pm * Is the patient Alert and Oriented? Yes * How many steps to enter\exit or inside your home? * PCP DR. TABATHA LAKE * Pharmacy [facility] [address] * Preadmission Environment Home Alone * ADLs Independent * Equipment Nebulizer Shower Chair * List name and contact numbers for known caregivers / representatives who currently or will assist patient after discharge: SAL ELIZONDO (FRIEND AND NEIGHBOR) [phone] MOTHER- PRICILLA NEWMAN (LIVES IN [place]) [phone] * Verbal permission to speak to the caregivers and representatives has been obtained from the patient. Yes * Community resources currently utilized None * Additional services required to return to the preadmission environment? Yes * Can the patient safely return to the preadmission environment? No * Has this patient been hospitalized within the prior 30 days at any hospital? Yes Last DP export: 04/07/18 1:27 Patient Name: NARINDER KNOX Page [id number] at 1236 All edits/amendments must be made on the electronic document DICTATION DATE: 04/08/18 1236 RECEIVER STOCKER: JOVANA 04/08/18 1236 RPT#: [id number] MA DATE: STATUS: ADM IN [facility] [address] [place] [address] END OF REPORT
--- NOTE | 2018-04-08 18:08 | MORECARE ---
CASE MANAGEMENT DISCHARGE SUMMARY PATIENT: NARINDER KNOX UNIT: [id number] ADM DATE: 03/28/18 AGE: 63 : 57 SEX: M ROOM/BED: D.1207 AUTHOR: MAYDA,DOC PHYSICIAN: REFERRING PHYSICIAN: ANA PIKE MD DATE OF SERVICE: 04/08/18 Discharge Plan Patient Name: NARINDER KNOX Facility: [facility]:[place] : 1955 Planned Disposition: Facility for hospice services Anticipated Discharge Date: 04/05/18 Discharge Date: 04/08/2018 Expected LOS: 8 Initial Reviewer: [email or web address] Initial Review Date: 04/03/2018 Generated: 04/08/18 7:08 pm Comments DCP- Discharge Planning Updated by [email or web address]: Christina Waterman on 04/08/18 5:[address] LATE ENTRY 1330 PATIENT PORTABLE OXYGEN DELIVERED TO THE BEDSIDE. STATIONARY UNIT TO BE DELIVERED TO HIS HOME. [facility] O[facility] ORDERED SIGNED BY DR PHILIPPE. FORM FAXED TO THE OFFICE. [facility] WILL SEE THE PATIENT IN THE AM. 1510 PATIENT WAS DISCHARGED TO HIS HOME VIA TAXI PER THE PRIMARY NURSE. DCP- Discharge Planning Updated by [email or web address]: Christina Waterman on 04/08/18 11:[address] LATE ENTRY 1040 CM SPOKE WITH THE PATIENT REGARDING HOME HEALTH. HE WILL ACCEPT HOME HEALTH. DISCUSSED HOME HEALTH PROVIDERS. HE SELECTED [facility].HE IS PRESENTLY RECEIVING CARE WITH [facility]. CM WILL CALL TO VERIFY STATUS. CM NOTED IS PATIENT IS WEARING NASAL OXYGEN AT 2-3 LITERS. PER HIS NOTE, HE IS DOES NOT HAVE HOME OXYGEN THERAPY. MIRIAM DISCUSSED WITH HIS NURSE. REQUESTED RM AIR SATS. TC TO SUSANNA AT [facility]. SHE STATES PATIENT IS ON ACTIVE SERVICE. SHE STATES CM TO TELL HIM THE NURSE WILL SEE HIM TOMORROW. 04/09/18. CM FAXED CLINICAL UPDATE. RECEIVED CB FROM [facility]. THE PATIENT'S OXYGEN DROPPED TO 87% ON RM AIR WITH ACTIVITY. RECOVERED TO 92 % WHEN 2/L NASAL O2 APPLIED. TC TO [facility]. REC CB. THE SEAT COVER MAKER WILL DELIVER THE OXYGEN WITHIN AN HOUR. CM TO FAX ORDERS TO [facility] OFFICE. DCP- Discharge Planning Updated by [id number]: Nancy Michel on 04/07/18 1:[address] CM informed by Beata Bullard that patient does not want to give up his check for snf placement. CM, Beata Bullard, and Mitchell Landers with [facility] all met with patient about his discharge plans. Patient confirms that he does not want to give up his check to live in the snf. States he wants to discharge to home. States he doesn't want Hospice at this time, but will call Harleen if he changes his mind after he goes home. CM will continue to follow and assist as needed with discharge planning / needs. DCP- Discharge Planning Updated by [email or web address]: Nancy Michel on 04/07/18 11:[address] CM followed up on status of discharge with hospice. Spoke with [facility] who stated patient did not qualify for inpatient hospice, but would qualify for hospice in home / snf. CM spoke with patient who states he wants to go to a snf with hospice. States he does not care which snf. CM called Beata Bullard, clinical liaison with [facility] about referral. Faxed records as requested. Jayla will see patient today. DCP- Discharge Planning Updated by [email or web address]: Nancy Michel on 04/04/18 2:[address] CM received order for Hospice eval-inpatient. CM spoke with patient who chose [facility]. CM called and spoke with Rox at [facility] about referral. Faxed records as requested. Awaiting eval and determination. CM will continue to follow and assist as needed with discharge planning / needs. DCP- Discharge Planning Updated by [email or web address]: Cindy Oconnell on 04/03/18 6:[address] Patient Name: NARINDER KNOX Admission Status: ER Accout number: [id number] Admission Date: 03-28-2018 : 1955 Admission Diagnosis: Attending: ANA PIKE Current LOS: 6 Anticipated DC Date: 04-05-2018 Planned Disposition: Facility for hospice services Primary Insurance: MEDICARE A & B Discharge Planning Comments: CM MET WITH PATIENT REGARDING D/C NEEDS AND PLANS. PATIENT STATED HE LIVES ALONE AND HAS 3 STEPS TO ENTER HIS HOME. PATIENT WAS INDEPENDENT WITH A SHOWERCHAIR, AND NEBULIZER AT HOME. PATIENTS PCP IS DR. TABATHA LAKE AND USES [facility] [address]. PATIENT HAS RECENTLY BEEN IN THE HOSPITAL AND STATED HE IS WORSE AND NOW WANTS HOSPICE AND WISHES TO BE A DNR. HE WANTS TO SPEAK WITH THE DOCTOR TOMORROW REGARDING HIS WISHES. HE STATED HE KNOWS HOSPICE IS END OF LIFE CARE AND STATED THAT IS WHAT HE WANTS. HE EXPLAINED HE HAS A NEIGHBOR SAL ELIZONDO AND HIS MOTHER PRICILLA NEWMAN THAT HE WANTS NOTIFIED WHEN THIS HAPPENS. THE PERSON ON HIS CONTACT LIST RYAN FAULKNER IS NO LONGER THE PERSON TO NOTIFY. CM TALKED WITH PATIENTS NURSE AND SHE KNOWS PATIENTS WISHES AND KNOWS HE WANTS TO SPEAK FIRST WITH DOCTOR TOMORROW MORNING. CM WILL CONTINUE TO FOLLOW PATIENT WITH D/C NEEDS AND PLANS. [facility]CP [facility] [address] PRICILLA NEWMAN (MOM) [phone] SAL ELIZONDO (FRIEND) [phone] Content Creation Manager: Cindy Oconnell DCPIA - Discharge Planning Initial Assessment Updated by [email or web address]: Cindy Oconnell on 04/03/18 7:52 pm * Is the patient Alert and Oriented? Yes * How many steps to enter\exit or inside your home? * PCP DR. TABATHA LAKE * Pharmacy [facility] [address] * Preadmission Environment Home Alone * ADLs Independent * Equipment Nebulizer Shower Chair * List name and contact numbers for known caregivers / representatives who currently or will assist patient after discharge: SAL ELIZONDO (FRIEND AND NEIGHBOR) [phone] MOTHER- PRICILLA NEWMAN (LIVES IN [place]) [phone] * Verbal permission to speak to the caregivers and representatives has been obtained from the patient. Yes * Community resources currently utilized None * Additional services required to return to the preadmission environment? Yes * Can the patient safely return to the preadmission environment? No * Has this patient been hospitalized within the prior 30 days at any hospital? Yes Last DP export: 04/08/18 11:36 am Patient Name: NARINDER KNOX Page 94018 at 1808 All edits/amendments must be made on the electronic document DICTATION DATE: 04/08/181807 LATHE MACHINIST: JOVANA 04/08/181807 RPT#: [id number] DC DATE:04/08/18 STATUS: DIS IN [facility] [address] [place] [address] END OF REPORT
--- NOTE | 2018-04-09 09:24 | MORECARE ---
CASE MANAGEMENT DISCHARGE SUMMARY PATIENT: NARINDER KNOX UNIT: [id number] ADM DATE: 03/28/18 AGE: 63 : 57 SEX: M ROOM/BED: D.1207 AUTHOR: MAYDA,DOC PHYSICIAN: REFERRING PHYSICIAN: ANA PIKE MD DATE OF SERVICE: 04/09/18 Discharge Plan Patient Name: NARINDER KNOX Facility: [facility]:[place] : 1955 Planned Disposition: Facility for hospice services Anticipated Discharge Date: 04/05/18 Discharge Date: 04/08/2018 Expected LOS: 8 Initial Reviewer: [email or web address] Initial Review Date: 04/03/2018 Generated: 04/09/18 10:23 am Comments DCP- Discharge Planning Updated by [id number]: Christina Waterman on 04/08/18 5:[address] LATE ENTRY 1330 PATIENT PORTABLE OXYGEN DELIVERED TO THE BEDSIDE. STATIONARY UNIT TO BE DELIVERED TO HIS HOME. [employer] [facility] OXGEN ORDERED SIGNED BY DR PHILIPPE. FORM FAXED TO THE OFFICE. [facility] WILL SEE THE PATIENT IN THE AM. 1510 PATIENT WAS DISCHARGED TO HIS HOME VIA TAXI PER THE PRIMARY NURSE. DCP- Discharge Planning Updated by [id number]: Christina Waterman on 04/08/18 11:[address] LATE ENTRY 1040 CM SPOKE WITH THE PATIENT REGARDING HOME HEALTH. HE WILL ACCEPT HOME HEALTH. DISCUSSED HOME HEALTH PROVIDERS. HE SELECTED [facility].HE IS PRESENTLY RECEIVING CARE WITH [facility]. CM WILL CALL TO VERIFY STATUS. CM NOTED IS PATIENT IS WEARING NASAL OXYGEN AT 2-3 LITERS. PER HIS NOTE, HE IS DOES NOT HAVE HOME OXYGEN THERAPY. MIRIAM DISCUSSED WITH HIS NURSE. REQUESTED RM AIR SATS. TC TO SUSANNA AT [facility]. SHE STATES PATIENT IS ON ACTIVE SERVICE. SHE STATES CM TO TELL HIM THE NURSE WILL SEE HIM TOMORROW. 04/09/18. CM FAXED CLINICAL UPDATE. RECEIVED CB FROM [facility]. THE PATIENT'S OXYGEN DROPPED TO 87% ON RM AIR WITH ACTIVITY. RECOVERED TO 92 % WHEN 2/L NASAL O2 APPLIED. TC TO [facility]. REC CB. THE PLAYER SERVICES REPRESENTATIVE WILL DELIVER THE OXYGEN WITHIN AN HOUR. CM TO FAX ORDERS TO [facility] OFFICE. DCP- Discharge Planning Updated by [id number]: Nancy Mcihel on 04/07/18 1:[address] CM informed by Beata Bullard that patient does not want to give up his check for alf placement. CM, Beata Bullard, and Mitchell Landers with [facility] all met with patient about his discharge plans. Patient confirms that he does not want to give up his check to live in the alf. States he wants to discharge to home. States he doesn't want Hospice at this time, but will call Harleen if he changes his mind after he goes home. CM will continue to follow and assist as needed with discharge planning / needs. DCP- Discharge Planning Updated by [id number]: Nancy Michel on 04/07/18 11:[address] CM followed up on status of discharge with hospice. Spoke with [facility] who stated patient did not qualify for inpatient hospice, but would qualify for hospice in home / alf. CM spoke with patient who states he wants to go to a alf with hospice. States he does not care which alf. CM called Beata Bullard, clinical liaison with [facility] about referral. Faxed records as requested. Jayla will see patient today. DCP- Discharge Planning Updated by [id number]: Nancy Michel on 04/04/18 2:[address] CM received order for Hospice eval-inpatient. CM spoke with patient who chose [facility]. CM called and spoke with Rox at [facility] about referral. Faxed records as requested. Awaiting eval and determination. CM will continue to follow and assist as needed with discharge planning / needs. DCP- Discharge Planning Updated by [email or web address]: Cindy Oconnell on 04/03/18 6:[address] Patient Name: NARINDER KNOX Admission Status: ER Accout number: [id number] Admission Date: 03-28-2018 : 1955 Admission Diagnosis: Attending: ANA PIKE Current LOS: 6 Anticipated DC Date: 04-05-2018 Planned Disposition: Facility for hospice services Primary Insurance: MEDICARE A & B Discharge Planning Comments: CM MET WITH PATIENT REGARDING D/C NEEDS AND PLANS. PATIENT STATED HE LIVES ALONE AND HAS 3 STEPS TO ENTER HIS HOME. PATIENT WAS INDEPENDENT WITH A SHOWERCHAIR, AND NEBULIZER AT HOME. PATIENTS PCP IS DR. TABATHA LAKE AND USES [facility] [address]. PATIENT HAS RECENTLY BEEN IN THE HOSPITAL AND STATED HE IS WORSE AND NOW WANTS HOSPICE AND WISHES TO BE A DNR. HE WANTS TO SPEAK WITH THE DOCTOR TOMORROW REGARDING HIS WISHES. HE STATED HE KNOWS HOSPICE IS END OF LIFE CARE AND STATED THAT IS WHAT HE WANTS. HE EXPLAINED HE HAS A NEIGHBOR SAL ELIZONDO AND HIS MOTHER PRICILLA NEWMAN THAT HE WANTS NOTIFIED WHEN THIS HAPPENS. THE PERSON ON HIS CONTACT LIST RYAN FAULKNER IS NO LONGER THE PERSON TO NOTIFY. CM TALKED WITH PATIENTS NURSE AND SHE KNOWS PATIENTS WISHES AND KNOWS HE WANTS TO SPEAK FIRST WITH DOCTOR TOMORROW MORNING. CM WILL CONTINUE TO FOLLOW PATIENT WITH D/C NEEDS AND PLANS. [facility]CP [facility] [address] PRICILLA NEWMAN (MOM) [phone] SAL ELIZONDO (FRIEND) [phone] Stone Derrickman And Rigger: Cindy Oconnell DCPIA - Discharge Planning Initial Assessment Updated by [id number]: Cindy Oconnell on 04/03/18 7:52 pm * Is the patient Alert and Oriented? Yes * How many steps to enter\exit or inside your home? * PCP DR. TABATHA LAKE * Pharmacy [facility] [address] * Preadmission Environment Home Alone * ADLs Independent * Equipment Nebulizer Shower Chair * List name and contact numbers for known caregivers / representatives who currently or will assist patient after discharge: SAL ELIZONDO (FRIEND AND NEIGHBOR) [phone] MOTHER- PRICILLA NEWMAN (LIVES IN [place]) [phone] * Verbal permission to speak to the caregivers and representatives has been obtained from the patient. Yes * Community resources currently utilized None * Additional services required to return to the preadmission environment? Yes * Can the patient safely return to the preadmission environment? No * Has this patient been hospitalized within the prior 30 days at any hospital? Yes Last DP export: 04/08/18 5:08 pm Patient Name: NARINDER KNOX Page 22245 at 0924 All edits/amendments must be made on the electronic document DICTATION DATE: 04/09/18922 HOSPITAL TELEVISION RENTAL CLERK: JOVANA 04/09/18922 RPT#: [id number] DC DATE:04/08/18 STATUS: DIS IN [facility] [address] [place] [address] END OF REPORT
== END 2018-04-08 15:23 | disposition home health service (06) | DRG 189 ==
LOC: D.ER 14:18 → D.M3 18:58 → D.ER 19:30 → D.M3 04-08 15:23
PROVIDERS: Family Medicine; Internal Medicine Pulmonary Disease; ADMIT Internal Medicine Nephrology
DX: J96.21 Acute and chronic respiratory failure with hypoxia (principal); I50.23 Acute on chronic systolic (congestive) heart failure; F17.213 Nicotine dependence, cigarettes, with withdrawal; I42.9 Cardiomyopathy, unspecified; R45.851 Suicidal ideations; E87.1 Hypo-osmolality and hyponatremia; N17.9 Acute kidney failure, unspecified; F10.239 Alcohol dependence with withdrawal, unspecified; J94.2 Hemothorax; J93.9 Pneumothorax, unspecified; J96.22 Acute and chronic respiratory failure with hypercapnia; J43.9 Emphysema, unspecified; D50.9 Iron deficiency anemia, unspecified; E87.6 Hypokalemia; D53.9 Nutritional anemia, unspecified; K70.10 Alcoholic hepatitis without ascites; D69.6 Thrombocytopenia, unspecified; K76.0 Fatty (change of) liver, not elsewhere classified; I48.91 Unspecified atrial fibrillation; I07.1 Rheumatic tricuspid insufficiency; F32.9 Major depressive disorder, single episode, unspecified; Y90.5 Blood alcohol level of 100-119 mg/100 ml

== ENCOUNTER 2018-11-03 14:19 | Inpatient (IN) | payer OTHER ==
[2018-11-03] VITALS (7 sets, daily range): BP systolic 92–129; BP diastolic 52–95; BMI 21.3
[~2018-11-03] VITALS: Ht 175.3 cm; Wt 65.3 kg
[~2018-11-03 14:19] MED LIST changes: +CELEXA20 MG PO; +COREG 3.1253.125 MG PO; +DALIRESP500 MCG PO; +DIAMOX250 MG PO; +FOLIC ACID1 MG PO; +IPRAT-ALBUT 0.5-3 ML INH; +LANOXIN125 MCG PO; +LASIX20 MG PO; +Lanoxin PO; +PROTONIX40 MG PO; +PULMICORT0.5 MG/21 UPD; +SINGULAIR10 MG PO; +STERAPRED DS 1210 MG PO; +THERAGRAN M [BK1 TAB PO; +THIAMINE HCL50 MG PO
[2018-11-03] MEDS ORDERED: COZAAR50 MG PO (14:35)
[2018-11-03] MEDS ORDERED: HYDROCHLOROTH12.5 M1 PO (14:36)
[2018-11-03] MEDS ORDERED: ACETAMINOPHEN500 M1 PO (14:38)
[2018-11-03 15:05] LABS: BASOPHILS 0.3 % (0-2); EOSINOPHILS 0.1 % (0-7); HEMATOCRIT 39.1 % (42.0-54.0); HEMOGLOBIN 14.5 g/dL (13.5-17.5); IMMATURE GRANULOCYTES 0.1 % (0-5); LYMPHOCYTES 18.1 % (15-50); MCH 36.3 pg (26.0-34.0); MCHC 37.1 g/dL (31.0-37.0); MEAN PLATELET VOLUME 8.4 fL (7.4-10.4); MONOCYTES 10.1 % (2-11); NEUTROPHILS 71.3 % (40-80); PLATELET COUNT 198 10x3/uL (130-400); RBC 3.99 10x6/uL (4.20-6.10); RDW 14.6 % (11.5-14.5); WBC 7.6 10x3/uL (4.8-10.8)
[2018-11-03 15:15] LABS: APTT 28.5 SECONDS (22.8-39.4); INR 1.21 (0.85-1.17); PROTIME 14.8 SECONDS (11.6-15.0)
--- NOTE | 2018-11-03 15:27 | NUR ---
PT STATED THAT CP WAS 5/10 PRIOR TO FIRST SL NITRO, DECREASED TO 2/10 PRIOR TO SECOND PRN SL NITRO.
[2018-11-03 15:47] LABS: ALBUMIN 3.4 g/dL (3.4-5.0); ALKALINE PHOSPHATASE 62 U/L (46-116); ALT (SGPT) 24 U/L (10-68); BILIRUBIN - TOTAL 0.85 mg/dL (0.2-1.3); CALC OSMOLALITY 246 mosm/kg (275-300); CALCIUM 8.4 mg/dL (8.5-10.1); CARBON DIOXIDE 38.4 mmol/L (21.0-32.0); CKMB 4.2 U/L (0.0-3.6); CREATINE KINASE 75 UL (21-232); CREATININE - SERUM 0.8 mg/dL (0.6-1.3); GLUCOSE 89 mg/dL (74-106); MAGNESIUM - SERUM 1.9 mg/dL (1.8-2.4); POTASSIUM - SERUM 3.5 mmol/L (3.5-5.1); PROTEIN - SERUM 6.4 g/dL (6.4-8.2); SODIUM 122 mmol/L (136-145); UREA NITROGEN 18 mg/dL (7-18); eGFR NON AFRICAN AMERICAN > 90 mL/min (90-120)
[2018-11-03 15:58] LABS: CHLORIDE - SERUM 81 mmol/L (98-107); TROPONIN-I 0.062 ng/mL (0.000-0.060)
--- NOTE | 2018-11-03 16:20 | NUR ---
PT FOUND SITTING IN CHAIR AT THE FOOT OF HIS BED. PT HAD REMOVED ALL VS MONITORING EQUIPMENT. PT STATES THAT HE IS READY TO LEAVE AND GO HOME. TREATING PROVIDER WAS NOTIFIED WHO SPOKE WITH PT AND CONVINCE PT TO STAY FOR TREATMENT.
--- NOTE | 2018-11-03 16:38 | NUR ---
PT LEAVING THE ED AT THIS TIME FOR ORDERED CT. NO SIGNS OF DISTRESS NOTED PT LEAVING.
--- NOTE | 2018-11-03 18:42 | MORECARE ---
CASE MANAGEMENT DISCHARGE SUMMARY PATIENT: NARINDER KNOX UNIT: [id number] ADM DATE: 11/03/18 AGE: 63 : 57 SEX: M ROOM/BED: D.2136 AUTHOR: MARICHUY OHARA PHYSICIAN: REFERRING PHYSICIAN: ANA PIKE MD DATE OF SERVICE: 11/03/18 Discharge Plan Patient Name: NARINDER KNOX Facility: [facility]:[place] : 1955 Planned Disposition: Anticipated Discharge Date: Discharge Date: Expected LOS: Initial Reviewer: [email or web address] Initial Review Date: 11/03/2018 Generated: 11/03/18 7:41 pm Patient Name: NARINDER KNOX Page 26804 at 1842 All edits/amendments must be made on the electronic document DICTATION DATE: 11/03/181840 MAJOR ASSEMBLY INSPECTOR: JOVANA 11/03/181840 RPT#: [id number] DC DATE: STATUS: ADM IN [facility] [address] [place] [address] END OF REPORT
--- NOTE | 2018-11-03 19:40 | NUR ---
EVENING ROUNDS MADE. PT SITTING ON SIDE OF BED, CO SOB. O2 SAT 97% ON 3L NASAL CANULA, HR 108 SINUS TACH ON TELE. RESP MADE AWARE, PRN ALBUTEROL GIVEN. PT VOICED THANKS AND STATED "I CAN BREATH MUCH EASIER". WILL CONT WITH POC.
[2018-11-03 19:44] LABS: CKMB 3.7 U/L (0.0-3.6); CREATINE KINASE 75 UL (21-232)
[2018-11-03 19:45] LABS: TROPONIN-I 0.075 ng/mL (0.000-0.060)
[2018-11-04 00:04] VITALS: BP 114/73
[2018-11-04 01:12] LABS: CKMB 3.9 U/L (0.0-3.6); CREATINE KINASE 79 UL (21-232)
[2018-11-04 01:13] LABS: TROPONIN-I 0.076 ng/mL (0.000-0.060)
[2018-11-04 04:12] VITALS: BP 99/69
--- NOTE | 2018-11-04 05:44 | NUR ---
PT LAYING IN BED. NO SIGNS OF DISTRESS. CURRENT O2 SAT AT 96%. PT DENIES ANY NEEDS AT THIS TIME. WILL CONT WITH POC.
[2018-11-04 06:01] LABS: BASOPHILS 0 % (0-2); EOSINOPHILS 0 % (0-7); HEMATOCRIT 40.8 % (42.0-54.0); HEMOGLOBIN 14.2 g/dL (13.5-17.5); IMMATURE GRANULOCYTES 0.2 % (0-5); LYMPHOCYTES 4.8 % (15-50); MCH 35.3 pg (26.0-34.0); MCHC 34.8 g/dL (31.0-37.0); MEAN PLATELET VOLUME 8.8 fL (7.4-10.4); MONOCYTES 0.9 % (2-11); NEUTROPHILS 94.1 % (40-80); PLATELET COUNT 232 10x3/uL (130-400); RBC 4.02 10x6/uL (4.20-6.10); RDW 15.1 % (11.5-14.5)
--- NOTE | 2018-11-04 06:14 | NUR ---
PT SITTING UP IN BED TRYING TO REMOVE CLOTHING. ASSISTED PT TO TRY TO PREVENT THE REMOVAL OF HIS IV CATH. PT REFUSED MORNING PROTONIX. NO NEEDS NOTED AT THIS TIME. WILL CONT WITH POC.
[2018-11-04 06:46] LABS: WBC 5.4 10x3/uL (4.8-10.8)
[2018-11-04 06:47] LABS: MCV 101.5 fL (80.0-100.0)
[2018-11-04 06:50] LABS: ALBUMIN 3.3 g/dL (3.4-5.0); ALKALINE PHOSPHATASE 56 U/L (46-116); ALT (SGPT) 23 U/L (10-68); BILIRUBIN - TOTAL 0.96 mg/dL (0.2-1.3); CALCIUM 8.5 mg/dL (8.5-10.1); CHLORIDE - SERUM 91 mmol/L (98-107); CREATINE KINASE 63 UL (21-232); CREATININE - SERUM 0.7 mg/dL (0.6-1.3); MAGNESIUM - SERUM 2.2 mg/dL (1.8-2.4); PROTEIN - SERUM 6.3 g/dL (6.4-8.2); SODIUM 135 mmol/L (136-145); UREA NITROGEN 16 mg/dL (7-18); eGFR NON AFRICAN AMERICAN > 90 mL/min (90-120)
[2018-11-04 07:31] LABS: CALC OSMOLALITY 272 mosm/kg (275-300); GLUCOSE 143 mg/dL (74-106); POTASSIUM - SERUM 4.2 mmol/L (3.5-5.1)
[2018-11-04 07:37] LABS: CARBON DIOXIDE 40.9 mmol/L (21.0-32.0)
--- NOTE | 2018-11-04 07:43 | NUR ---
PT SITTING UP ON THE SIDE OF BED WITH DIFFICULTY BREATHING. RESPIRATORY CALLED FOR BREATHING TREATMENT.O2 90% ON 3L. PT ALERT AND ORIENTEDX4. BED LOW CALL LIGHT WITHIN REACH. WILL CONTINUE TO MONITOR.
[2018-11-04 08:42] VITALS: BP 94/55
--- NOTE | 2018-11-04 09:01 | NUR ---
pt has urinated all over the floor. NO GOWN ON. PT IS EATING WITH FINGERS. PT DOES KNOW HIS NAME AND BUT IS NOT ORIENTED TO YEAR AND SITUATION. PT CLEANED AND LINEN CHANGED. CARMINA ALARM ON. TRIED TO CALL FAMILY BUT HAD TO LEAVE A MESSAGE.
[2018-11-04 12:13] VITALS: BP 84/48
[2018-11-04 13:45] VITALS: Ht 175.3 cm; Wt 65.3 kg
--- NOTE | 2018-11-04 14:41 | NUR ---
RESP UL ON . IV PATENT. CALL LIGHT IN REACH. WILL MONITOR NEEDS.
--- NOTE | 2018-11-04 14:45 | NUR ---
PT BECAME AGGITATED AND BULLING HIS EQUIPMENT. PT STATED, HE WAS GOING TO [place] TO FIGHT A DOCTOR. PT BECAME SOB. TALKED PT INTO GETTING INTO BED. PRN ATIVAN GIVEN. VITALS STABLE AT THIS TIME. BED LOW CALL LIGHT WITHIN REACH. WILL CONTINUE TO MONITOR.
[2018-11-04 15:50] VITALS: BP 92/49
--- NOTE | 2018-11-04 19:15 | NUR ---
PATIENT UP TO BATHROOM. BED ALARM ON. PATIENT EDUCATED ON FALL PREVENTIONS. NO DISTRESS NOTED.
--- NOTE | 2018-11-05 01:19 | NUR ---
PATIENT LAYING IN BED. EYES CLOSED, CHEST RISING AND FALLING. NO DISTRESS NOTED.
--- NOTE | 2018-11-05 02:44 | NUR ---
I have reviewed this patient and I concur with the Shift Assessment completed by the Licensed Practical Nurse today this shift.
[2018-11-05 04:15] VITALS: BP 126/88
[2018-11-05 07:00] LABS: BASOPHILS 0 % (0-2); EOSINOPHILS 0 % (0-7); HEMATOCRIT 42.2 % (42.0-54.0); HEMOGLOBIN 13.8 g/dL (13.5-17.5); IMMATURE GRANULOCYTES 0.8 % (0-5); LYMPHOCYTES 7.1 % (15-50); MCH 35.3 pg (26.0-34.0); MCHC 32.7 g/dL (31.0-37.0); MEAN PLATELET VOLUME 8.8 fL (7.4-10.4); MONOCYTES 10.3 % (2-11); NEUTROPHILS 81.8 % (40-80); PLATELET COUNT 200 10x3/uL (130-400); RBC 3.91 10x6/uL (4.20-6.10); RDW 15.5 % (11.5-14.5)
[2018-11-05 07:19] LABS: MCV 107.9 fL (80.0-100.0); WBC 10.2 10x3/uL (4.8-10.8)
[2018-11-05 07:21] LABS: ALBUMIN 3.2 g/dL (3.4-5.0); ALKALINE PHOSPHATASE 52 U/L (46-116); ALT (SGPT) 18 U/L (10-68); CALC OSMOLALITY 274 mosm/kg (275-300); CALCIUM 8.4 mg/dL (8.5-10.1); CHLORIDE - SERUM 97 mmol/L (98-107); CREATININE - SERUM 0.7 mg/dL (0.6-1.3); GLUCOSE 144 mg/dL (74-106); MAGNESIUM - SERUM 2.5 mg/dL (1.8-2.4); POTASSIUM - SERUM 4.6 mmol/L (3.5-5.1); PROTEIN - SERUM 6.2 g/dL (6.4-8.2); SODIUM 135 mmol/L (136-145); UREA NITROGEN 19 mg/dL (7-18); eGFR NON AFRICAN AMERICAN > 90 mL/min (90-120)
--- NOTE | 2018-11-05 07:50 | NUR ---
CRITICAL HIGH CO2 ACNOWLEDGED. AND CALLED IN TO [facility].
[2018-11-05 08:48] VITALS: BP 111/78
--- NOTE | 2018-11-05 10:28 | NUR ---
PATIENT IS TOO LETHARGIC AND HE WILL NOT WAKE UP TO TAKE HIS BY MOUTH MEDICATIONS.
--- NOTE | 2018-11-05 11:39 | NUR ---
PATIENT STOOD UP AND URINATED IN THE CORNER OF THE ROOM AND THEN PULLED HIS IV OUT. LINEN CHANGED. NO BLEEDING AT THIS TIME FROM THE SITE. CATHETER WAS INTACT.
[2018-11-05 12:13] VITALS: BP 99/59
--- NOTE | 2018-11-05 15:06 | NUR ---
NEW IV STARTED IN LEFT FOREARM. 20 G 3 STICKS. PATIENT TOLERATED. IV INFUSING ORDERED. DR PIKE JUST ROUNDED AND STATES THE FLUID RESTRICTION OF FREE WATER TO BE 1500ML.
[2018-11-05 15:57] VITALS: BP 100/66
--- NOTE | 2018-11-05 18:21 | NUR ---
PATIENT IS ALERT AND TALKING. HE IS SITTING UP IN BED EATTING ICECREAM AND WATCHING TV. IT TOOK HIM TILL 1500 TO BE ALERT AND AWAKE. HE WAS SO SEDATED STILL FROM LAST NIGHT. WILL ASK THE BROADCAST DESIGNER TO GO EASY ON THE SLEEP MEDICATIONS. THIS PATIENT WAS SO CONFUSED AND LETHARGIC EARLIER TODAY WHEN HE GOT UP TO PEE, AND URINATED ON THE FLOOR, THEN PULLED OUT HIS IV. HE IS DOING VERY WELL NOW. RESPONSIVE AND CHEERFUL.
--- NOTE | 2018-11-05 19:00 | NUR ---
PATIENT SITTING UP IN BED. NO COMPLAINTS AT THIS TIME. NO DISTRESS NOTED.
--- NOTE | 2018-11-05 19:20 | MORECARE ---
CASE MANAGEMENT DISCHARGE SUMMARY PATIENT: NARINDER KNOX UNIT: [id number] ADM DATE: 11/03/18 AGE: 63 : 57 SEX: M ROOM/BED: D.2136 AUTHOR: MARICHUY OHARA PHYSICIAN: REFERRING PHYSICIAN: ANA PIKE MD DATE OF SERVICE: 11/05/18 Discharge Plan Patient Name: NARINDER KNOX Facility: [facility]:[place] : 1955 Planned Disposition: Home Anticipated Discharge Date: Discharge Date: Expected LOS: Initial Reviewer: [email or web address] Initial Review Date: 11/03/2018 Generated: 11/05/18 8:20 pm DCPIA - Discharge Planning Initial Assessment Updated by [email or web address]: China Clolins on 11/05/18 7:15 pm * Is the patient Alert and Oriented? Yes * How many steps to enter\exit or inside your home? * PCP unknown * Pharmacy [facility] * Preadmission Environment Home with Family * ADLs Partial Dependent * Equipment None * List name and contact numbers for known caregivers / representatives who currently or will assist patient after discharge: JERRI KEMP - FRIEND - ?? * Verbal permission to speak to the caregivers and representatives has been obtained from the patient. N/A * Community resources currently utilized None * Additional services required to return to the preadmission environment? No * Can the patient safely return to the preadmission environment? Yes * Has this patient been hospitalized within the prior 30 days at any hospital? Yes Last DP export: 11/03/18 5:42 p Patient Name: NARINDER KNOX Page 31720 at 1920 All edits/amendments must be made on the electronic document DICTATION DATE: 11/05/181918 INFANT TEACHER: JOVANA 11/05/181918 RPT#: [id number] DC DATE: STATUS: ADM IN [facility] [address] [place] [address] END OF REPORT
--- NOTE | 2018-11-05 19:32 | MORECARE ---
CASE MANAGEMENT DISCHARGE SUMMARY PATIENT: NARINDER KNOX UNIT: [id number] ADM DATE: 11/03/18 AGE: 63 : 57 SEX: M ROOM/BED: D.9096 AUTHOR: MAYDA,DOC PHYSICIAN: REFERRING PHYSICIAN: ANA PIKE MD DATE OF SERVICE: 11/05/18 Discharge Plan Patient Name: NARINDER KNOX Facility: [facility]:[place] : 1955 Planned Disposition: Home Anticipated Discharge Date: Discharge Date: Expected LOS: Initial Reviewer: [email or web address] Initial Review Date: 11/03/2018 Generated: 11/05/18 8:32 pm Comments DCP- Discharge Planning Updated by [email or web address]: China Collins on 11/05/18 6:[address] Patient Name: NARINDER KNOX Admission Status: ER Accout number: [id number] Admission Date: 11-03-2018 : 1955 Admission Diagnosis:SHORTNESS OF BREATH Attending: ANA PIKE Current LOS: 2 Anticipated DC Date: Planned Disposition: Home Primary Insurance: [employer] Discharge Planning Comments: CM met with patient at bedside after explaining CM role and obtaining verbal consent. Patient lives at home with his friend Jerri and plans to return there upon discharge. Patient is extremely SOB while trying to answer d/c planning questions. Patient denies that he has any home health or medical equipment within the home. CM discussed availability / needs of home health and medical equipment. Patient denies any discharge needs at this time. CM will continue to follow and assist as needed with discharge planning / needs. Dental Laboratory Technician Apprentice: China Collins DCPIA - Discharge Planning Initial Assessment Updated by [email or web address]: China Collins on 11/05/18 7:15 pm * Is the patient Alert and Oriented? Yes * How many steps to enter\exit or inside your home? * PCP unknown * Pharmacy [facility] * Preadmission Environment Home with Family * ADLs Partial Dependent * Equipment None * List name and contact numbers for known caregivers / representatives who currently or will assist patient after discharge: JERRI KEMP - FRIEND - ?? * Verbal permission to speak to the caregivers and representatives has been obtained from the patient. N/A * Community resources currently utilized None * Additional services required to return to the preadmission environment? No * Can the patient safely return to the preadmission environment? Yes * Has this patient been hospitalized within the prior 30 days at any hospital? Yes Last DP export: 11/05/18 6:20 p Patient Name: NARINDER KNOX Page 30670 at 1932 All edits/amendments must be made on the electronic document DICTATION DATE: 11/05/181931 MICROELECTRONICS ASSEMBLER: JOVANA 11/05/181931 RPT#: [id number] DC DATE: STATUS: ADM IN [facility] [address] [place] [address] END OF REPORT
[2018-11-05 20:00] VITALS: BP 117/70
--- NOTE | 2018-11-05 21:00 | NUR ---
PATIENT'S BED ALARM WENT OFF. THIS NURSE WENT INTO PATIENT'S ROOM. PATIENT URINATING ON FLOOR. PATIENT GOT BACK INTO BED AND URINE CLEANED OFF OF FLOOR.
--- NOTE | 2018-11-05 21:32 | NUR ---
PATIENT RECIEVED 1MG DOSE OR 0.5ML OF 2MG/ML VIAL OF ATIVAN PRN ORDERED. BERNADETTE RN IN ROOM AND VERIFIED AMOUNT GIVEN TO PATIENT.
--- NOTE | 2018-11-05 22:55 | NUR ---
PATIENT YELLING "NURSE." THIS NURSE WENT INTO ROOM, PATIENT HAD PULLED OFF NC. NC REPLACED. PATIENT ASKED FOR A CIGARETTE. PATIENT EDUCATED ON SMOKING CESSATION. PATIENT ALSO EDUCATED THAT HE HAS A NICODERM PATCH FOR NICOTINE CRAVINGS. PATIENT VERBALIZED UNDERSTANDING.
[2018-11-05 23:30] VITALS: BP 117/73
[2018-11-06] VITALS (50 sets, daily range): BP systolic 63–126; BP diastolic 30–103
--- NOTE | 2018-11-06 03:25 | NUR ---
PATIENT FOUND UNRESPONSIVE AND NOT BREATHING. XAVIER BORGES CALLED.
--- NOTE | 2018-11-06 03:47 | NUR ---
CALL PLACED TO ONLY OUTSOLE SPLICER LISTED IN CHART, RYAN HO, MESSAGE LEFT TO PLEASE CALL NURSE AT [facility].
--- NOTE | 2018-11-06 04:02 | NUR ---
SECOND CALL TO RYAN HO, SECOND MESSAGE LEFT TO PLEASE CALL STAFF AT [facility].
[2018-11-06 04:03] LABS: BASOPHILS 0.1 % (0-2); EOSINOPHILS 0 % (0-7); HEMOGLOBIN 11.3 g/dL (13.5-17.5); IMMATURE GRANULOCYTES 0.7 % (0-5); LYMPHOCYTES 45.9 % (15-50); MCH 35.1 pg (26.0-34.0); MCHC 31.4 g/dL (31.0-37.0); MEAN PLATELET VOLUME 9.4 fL (7.4-10.4); MONOCYTES 9.6 % (2-11); NEUTROPHILS 43.7 % (40-80); RBC 3.22 10x6/uL (4.20-6.10); RDW 15.5 % (11.5-14.5); WBC 9.8 10x3/uL (4.8-10.8)
[2018-11-06 04:06] LABS: MCV 111.8 fL (80.0-100.0); PLATELET COUNT 131 10x3/uL (130-400)
--- NOTE | 2018-11-06 04:10 | NUR ---
PATIENT TRANSFERRED TO ICU.
[2018-11-06 04:14] LABS: BILIRUBIN - TOTAL 0.58 mg/dL (0.2-1.3); CALCIUM 7.3 mg/dL (8.5-10.1); CARBON DIOXIDE 38.4 mmol/L (21.0-32.0); MAGNESIUM - SERUM 2.6 mg/dL (1.8-2.4)
--- NOTE | 2018-11-06 04:15 | NUR ---
SILVIA PARKINSON HEEL CURVER AT BEDSIDE. UPDATED ON PATIENT CONDITION. NEW ORDERS RECEIVED.
[2018-11-06 04:45] LABS: CREATININE - SERUM 1.1 mg/dL (0.6-1.3)
[2018-11-06 04:46] LABS: ALBUMIN 2.3 g/dL (3.4-5.0); ANION GAP 9.9 mmol/L (8-16); POTASSIUM - SERUM 6.3 mmol/L (3.5-5.1); PROTEIN - SERUM 4.4 g/dL (6.4-8.2)
[2018-11-06 04:56] LABS: INR 1.5 (0.85-1.17); PROTIME 17.5 SECONDS (11.6-15.0)
--- NOTE | 2018-11-06 05:13 | NUR ---
RECEIVED PATIENT TO ICU ROOM 2306 POST CODE. INTUBATED. ETT 7.5 INTACT/SECURE/PATENT AND CONNECTED TO MECHANICAL VENT. ASSESSMENT COMPLETED PER FLOW SHEET.
[2018-11-06 06:42] LABS: PHOSPHOROUS 6.8 mg/dL (2.5-4.9)
--- NOTE | 2018-11-06 07:00 | NUR ---
SHIFT ASSESSMENT COMPLETED. PT CARE ASSUMED. MONITORS ON AND WORKING. PT S/P CODE, INTUBATED, UNRESPONSIVE. WILL CONTINUE TO OBSERVE.
--- NOTE | 2018-11-06 07:00 | NUR ---
SHIFT ASSESSMENT COMPLETED. PT CARE ASSUMED, MONITORS ON AND WORKING, PT ON PRESSERS, VENT SETTINGS NOTED. PT UNRESPONSIVE. WILL CONTINUE TO OBSERVE. ATTEMPTS TO GET IN TOUCH WITH FAMILY HAVE BEEN UNSUCCESSFUL.
--- NOTE | 2018-11-06 07:20 | NUR ---
DR. ANGELICA ISLAS
--- NOTE | 2018-11-06 07:20 | NUR ---
DR. MENDOZA NOTIFIED OF PT STATUS POST CODE, NO NEW ORDERS.
--- NOTE | 2018-11-06 07:31 | NUR ---
SPOKE WITH DR. DOMINGUEZ. NEW ORDERS RECEIVED.
[2018-11-06 08:52] LABS: HEMATOCRIT 39.7 % (42.0-54.0); HEMOGLOBIN 13.1 g/dL (13.5-17.5); MCH 34.8 pg (26.0-34.0); MEAN PLATELET VOLUME 9.3 fL (7.4-10.4); RBC 3.76 10x6/uL (4.20-6.10); RDW 15.2 % (11.5-14.5); WBC 12.2 10x3/uL (4.8-10.8)
[2018-11-06 08:53] LABS: MCV 105.6 fL (80.0-100.0)
--- NOTE | 2018-11-06 09:00 | NUR ---
CENTRAL LINE PLACED PER DR DOMINGUEZ. MONITORS ON AND WORKING, PT VITALS VERY UNSTABLE. VERY LARGE AMOUNT OF RUST COLORED STOOL CLEANED FROM PT, RECTAL TUBE PLACED FOR CONSTANT LARGE AMOUNT OF RUST COLORED STOOL POURING OUT. 2 UNITS OF BLOOD ORDERED PER MD. CASE MGT SPOKE WITH PTS MOTHER, MOTHER AWARE OF SITUATION, WILL CONTINUE TO OBSERVE.
--- NOTE | 2018-11-06 09:05 | NUR ---
PER DR DOMINGUEZ, ADMIN 2U PRBC NOW. ORDER PLACED, BLOOD BANK NOTIFIED.
[2018-11-06 09:45] LABS: HEMATOCRIT 40.8 % (42.0-54.0); HEMOGLOBIN 13.5 g/dL (13.5-17.5)
--- NOTE | 2018-11-06 10:03 | NUR ---
Nutrition follow-up: Pt now in ICU s/p Code Blue Intubated, sedated; pressors in use Labs reviewed Wt: 143# When medically feasible, recommend Pulmocare start @ 20 ml/hr with increase to goal rate of 45 ml/hr with 100 ml H2O flush Q [address] RDN following.
--- NOTE | 2018-11-06 11:00 | NUR ---
NO CHANGES, MONITORS ON AND WORKING, PT REMAINS UNRESPONSIVE. SEE FLOW SHEET FOR FURTHER DETAILS. WILL CONTINUE TO OBSERVE.
--- NOTE | 2018-11-06 13:00 | NUR ---
NO CHANGES. PT VITALS REMAIN UNSTABLE. BRAIN STUDY ORDERED PER MD. WILL CONTINUE TO OBSERVE.
--- NOTE | 2018-11-06 15:00 | NUR ---
NO CHANGES, SEE FLOW SHEET FOR FURTHER DETIALS. WILL CONTINUE TO OBSERVE.
--- NOTE | 2018-11-06 15:45 | NUR ---
CODE BLUE CALLED AT 1543, SEE CODE BLUE SHEET FOR FURTHER DETAILS.
--- NOTE | 2018-11-06 15:50 | NUR ---
CODE CALLED AT 1549 , SEE CODE BLUE SHEET FOR FURTHER DETIALS. ATTEMPTED TO CONTACT MOTHER AT THIS TIME, NO ANSWER. WILL TRY TO CALL ALL.
--- NOTE | 2018-11-06 16:10 | NUR ---
TRIED TO CALL MOTHER, NO ANSWER.
--- NOTE | 2018-11-06 17:00 | NUR ---
PT SISTER IN LAW CALLED BACK, HOME CHOSE, HOME CONTACTED.
--- NOTE | 2018-11-06 17:45 | NUR ---
ROOM MATE JERRI KEMP HERE TO ARTIST SUSPECT PATIENT BELONGINGS. TWO BAGS INVENTORIED IN FRONT OF MR KEMP. CONTENTS WERE FOLLOWS: A MOTOROLA CELL PHONE IN BLACK PROTECTIVE CASE, CELL PHONE SPECIAL EVENTS FUNDRAISER, SANDALS, BALL CAP, T-SHIRT, GREEN CARGO PANTS, BROWN BELT. OTC BOTTLE OF ACETAMINOPHEN, PRESCRIPTION LOSARTAN, HCTZ, FUROSEMIDE. A PRODUCTION LINE MANAGER, PEN, GLASSES, PAIR OF BOXERS, SOCKS. BLACK WALLET CONTAINING $20 X1, $1 X2, [place] DRIV[place] LICENSE, [employer]LL CARD, MEDICARE CARD, SS CARD, [employer] VISA CARD WITH UNKNOWN AMOUNT, DIRECT... MASTERCARD DEBIT CARD. ALL BELONGINGS RE-BAGGED AND GIVEN TO MR. KEMP.
--- NOTE | 2018-11-06 18:00 | NUR ---
BODY RELEASED TO HOME.
--- NOTE | 2018-11-06 19:33 | MORECARE ---
CASE MANAGEMENT DISCHARGE SUMMARY PATIENT: NARINDER KNOX UNIT: [id number] ADM DATE: 11/03/18 AGE: 63 : 57 SEX: M ROOM/BED: D.2309 AUTHOR: MAYDA,DOC PHYSICIAN: REFERRING PHYSICIAN: ANA PIKE MD DATE OF SERVICE: 11/06/18 Discharge Plan Patient Name: NARINDER KNOX Facility: [facility]:[place] : 1955 Planned Disposition: Home Anticipated Discharge Date: Discharge Date: 11/06/2018 Expected LOS: Initial Reviewer: [email or web address] Initial Review Date: 11/03/2018 Generated: 11/06/18 8:33 pm Comments DCP- Discharge Planning Updated by [email or web address]: China Collins on 11/06/18 6:[address] Late Entry 11/06/18 @ 1045 CM notified that patient in very critical condition and needing to get in contact with patient family. CM stated that patient had stated that Jerri Kemp was his emergency contact but his number was in patients wallet. CM arrived to patients room and went through patients belonging Fabiana Ford RN witnessed CM going through patient belongings. CM found patients phone and was able to get into his contacts to find Jerri Kemp number [phone]. CM called number and left message x2. Jerri called back sometime later and stated that the patient has a mother and step-dad that live on [facility]. CM looked at contacts in patients phone MOM [phone]. CM called and verified information that she was his mother Aster Kowalski. CM explained the condition of the patient gave her number to nurses station to call to check on him. Aster stated at this time to do all we can for him. Aster states that she and her are both getting chemo and don't know if they will be able to come see him. CM will continue to follow and assist as needed with discharge planning /needs. DCP- Discharge Planning Updated by [email or web address]: China Collins on 11/05/18 6:[address] Patient Name: NARINDER KNOX Admission Status: ER Accout number: [id number] Admission Date: 11-03-2018 : 1955 Admission Diagnosis:SHORTNESS OF BREATH Attending: ANA PIKE Current LOS: 2 Anticipated DC Date: Planned Disposition: Home Primary Insurance: [employer] Discharge Planning Comments: CM met with patient at bedside after explaining CM role and obtaining verbal consent. Patient lives at home with his friend Jerri and plans to return there upon discharge. Patient is extremely SOB while trying to answer d/c planning questions. Patient denies that he has any home health or medical equipment within the home. CM discussed availability / needs of home health and medical equipment. Patient denies any discharge needs at this time. CM will continue to follow and assist as needed with discharge planning / needs. Computer Numerical Control Programmer: China HUGHES - Discharge Planning Initial Assessment Updated by [email or web address]: China Collins on 11/05/18 7:15 pm * Is the patient Alert and Oriented? Yes * How many steps to enter\exit or inside your home? * PCP unknown * Pharmacy [facility] * Preadmission Environment Home with Family * ADLs Partial Dependent * Equipment None * List name and contact numbers for known caregivers / representatives who currently or will assist patient after discharge: JERRI KEMP - FRIEND - ?? * Verbal permission to speak to the caregivers and representatives has been obtained from the patient. N/A * Community resources currently utilized None * Additional services required to return to the preadmission environment? No * Can the patient safely return to the preadmission environment? Yes * Has this patient been hospitalized within the prior 30 days at any hospital? Yes Last DP export: 11/05/18 6:32 p Patient Name: NARINDER KNOX Page [id number] at 1933 All edits/amendments must be made on the electronic document DICTATION DATE: 11/06/181931 EDITORIAL DIRECTOR: JOVANA 11/06/181931 RPT#: [id number] DC DATE:11/06/18 STATUS: DIS IN [facility] [address] [place] [address] END OF REPORT
[2018-11-07 07:14] LABS: METANEPH/CREAT RATIO 0.9 (0.0-1.0)
--- NOTE | 2018-11-10 15:53 | MORECARE ---
CASE MANAGEMENT DISCHARGE SUMMARY PATIENT: NARINDER KNOX UNIT: [id number] ADM DATE: 11/03/18 AGE: 63 : 57 SEX: M ROOM/BED: D.2309 AUTHOR: MAYDA,DOC PHYSICIAN: REFERRING PHYSICIAN: ANA PIKE MD DATE OF SERVICE: 11/10/18 Discharge Plan Patient Name: NARINDER KNOX Facility: [facility]:[place] : 1955 Planned Disposition: Home Anticipated Discharge Date: Discharge Date: 11/06/2018 Expected LOS: Initial Reviewer: [email or web address] Initial Review Date: 11/03/2018 Generated: 11/10/18 4:53 pm DCP- Discharge Planning Updated by [email or web address]: China Collins on 11/06/18 6:[address] Late Entry 11/06/18 @ 1045 CM notified that patient in very critical condition and needing to get in contact with patient family. CM stated that patient had stated that Jerri Kemp was his emergency contact but his number was in patients wallet. CM arrived to patients room and went through patients belonging Fabiana Ford RN witnessed CM going through patient belongings. CM found patients phone and was able to get into his contacts to find Jerri Kemp number [phone]. CM called number and left message x2. Jerri called back sometime later and stated that the patient has a mother and step-dad that live on [facility]. CM looked at contacts in patients phone MOM [phone]. CM called and verified information that she was his mother Aster Kowalski. CM explained the condition of the patient gave her number to nurses station to call to check on him. Aster stated at this time to do all we can for him. Aster states that she and her are both getting chemo and don't know if they will be able to come see him. CM will continue to follow and assist as needed with discharge planning /needs. DCP- Discharge Planning Updated by [id number]: China Collins on 11/05/18 6:[address] Patient Name: NARINDER KNOX Admission Status: ER Accout number: [id number] Admission Date: 11-03-2018 : 1955 Admission Diagnosis:SHORTNESS OF BREATH Attending: ANA PIKE Current LOS: 2 Anticipated DC Date: Planned Disposition: Home [facility] Discharge Planning Comments: CM met with patient at bedside after explaining CM role and obtaining verbal consent. Patient lives at home with his friend Jerri and plans to return there upon discharge. Patient is extremely SOB while trying to answer d/c planning questions. Patient denies that he has any home health or medical equipment within the home. CM discussed availability / needs of home health and medical equipment. Patient denies any discharge needs at this time. CM will continue to follow and assist as needed with discharge planning / needs. Educational Technician: China HUGHES - Discharge Planning Initial Assessment Updated by [email or web address]: China Collins on 11/05/18 7:15 pm * Is the patient Alert and Oriented? Yes * How many steps to enter\exit or inside your home? * PCP unknown * Pharmacy [facility] * Preadmission Environment Home with Family * ADLs Partial Dependent * Equipment None * List name and contact numbers for known caregivers / representatives who currently or will assist patient after discharge: JERRI KEMP - FRIEND - ?? * Verbal permission to speak to the caregivers and representatives has been obtained from the patient. N/A * Community resources currently utilized None * Additional services required to return to the preadmission environment? No * Can the patient safely return to the preadmission environment? Yes * Has this patient been hospitalized within the prior 30 days at any hospital? Yes Last DP export: 11/06/18 6:33 pm Patient Name: NARINDER KNOX Page [id number] at 1553 All edits/amendments must be made on the electronic document DICTATION DATE: 11/10/18 155 ELECTRO OPTICAL ENGINEER: JOVANA 11/10/18 155 RPT#: [id number] DC DATE:11/06/18 STATUS: DIS IN [facility] [address] [place] [address] END OF REPORT
--- NOTE | 2018-11-11 09:52 | CN ---
PATIENT NAME:NARINDER KNOX MEDICAL RECORD: [id number] : 57 LOCATION:MICHAELAD.2309 ADMIT DATE: 11/03/18 ACCOUNT: [id number] CONSULTING PHYSICIAN: KODY BUENROSTRO MD REFERRING PHYSICIAN: ANA PIKE MD DATE OF CONSULTATION: 11/04/2018 CARDIOLOGY CONSULT DIAGNOSES: 1. Shortness of breath and dyspnea on exertion. 2. Cardiomyopathy. 3. Congestive heart failure, chronic systolic dysfunction. 4. Left ventricular thrombus. 5. Coronary artery disease. 6. Pulmonary emboli. 7. Hypotension. 8. COPD. 9. Lung cancer. 10. Status post pneumonectomy. HISTORY OF PRESENT ILLNESS: This is a gentleman who is followed elsewhere, who presents with shortness of breath and dyspnea on exertion. He gives a history of having a clot in his heart. Echocardiogram was done. He does have an LV thrombus. His ejection fraction is in the 15% range. There is no obstruction to the outflow tract or mitral inflow tract with the left ventricular thrombus. Supposedly, he has been told that he had an outflow tract obstruction from the thrombus in the past. This is not the case on our echo here. He as well was admitted with shortness of breath, dyspnea on exertion, and does have positive for pulmonary emboli. His blood pressure runs in the 80 range, hence as an outpatient he was only on Lasix for the cardiomyopathy. He is currently on enoxaparin subcutaneous injections on a b.i.d. basis. PHYSICAL EXAMINATION: GENERAL APPEARANCE: Well-nourished, well-developed, appears stated age. Level of distress, comfortable. PSYCHIATRIC: Mental status, alert, normal affect. Orientation, oriented to time, place and person. EYES: Lids and conjunctiva, noninjected. No discharge, no pallor. ENT: Lips, teeth, gums, normal dentition. Oropharynx, no cyanosis, no pallor. NECK: Carotid arteries, bilateral normal upstroke, no bruits, no thrills. JUGULAR VEINS: No jugular venous pressure or distention. CERVICAL LYMPH NODES: Nontender, nonenlarged. THYROID: Not enlarged. Nontender. No nodules. LUNGS: Respiratory effort, unlabored. CHEST: Normal curvature. No thoracic deformity. No chest wall tenderness. Percussion, resonant. Auscultation, clear. No wheezes, no rales, no rhonchi. CARDIOVASCULAR: Precordial exam, nondisplaced. No heaves or pericardial thrills. Rate and rhythm, regular. Heart sounds, normal S1, normal S2. No S3, no gallop, no rub. Systolic murmur, not heard. Diastolic murmur, not heard. EXTREMITIES: No cyanosis, no edema. Peripheral pulses, full and equal in all extremities, except as noted. No bruits appreciated. ABDOMEN: Soft, nondistended. Normal aorta. No bruit. Nontender. No masses. Liver, nontender, no hepatomegaly. Spleen, nontender, no splenomegaly. MUSCULOSKELETAL: No joint tenderness. No joint swelling. No erythema. CONSULT REPORT [id number] NARINDER KNOX NEUROLOGICAL: Normal gait, normal strength, normal tone. SKIN: Warm and dry. OVERALL IMPRESSION: Cardiomyopathy, stable. He does have chronic congestive heart failure from chronic systolic dysfunction, but due to the low blood pressure, we are limited in the medications that he can be given for this. For the left ventricular thrombus, it will be same treatment. For the pulmonary emboli, it will be long-term anticoagulation; but at this point, no other cardiac workup or treatment is necessary. TRANSINT:[id number] Voice Confirmation ID: [id number] DOCUMENT ID: [id number] KODY BUENROSTRO MD at 0952 CC: [id number] DICTATION DATE: 11/04/18 1253 CERTIFIED VEHICLE FIRE INVESTIGATOR: 11/04/18 1306 DIS IN 11/06/18 [place] [id number] [place] [address]
--- NOTE | 2018-11-11 09:52 | EC ---
PATIENT:NARINDER KNOX DATE OF SERVICE: 11/03/18 SEX: M MEDICAL RECORD: [id number] DATE OF : [birth year] LOCATION[facility] AGE OF PATIENT: 63 ADMISSION DATE: 11/03/18 REFERRING PHYSICIAN: INTERPRETING PHYSICIAN: KODY JACOBSEN MD ECHOCARDIOGRAM REPORT ECHO CHARGES 4 ECHO COMPLETE Date: 11/04/18 CLINICAL DIAGNOSIS: POSSIBLE THROMBUS ECHOCARDIOGRAPHIC MEASUREMENTS (adult normal given) AC root (d.<3.7cm) 3.6 cm LV Septum d (<1.2 cm> 0.6 cm Valve Excursion 1.8 cm LV Septum (systole) 1.2 cm Left Atria (s.<4.0cm> 4.0 cm LVPW d(<1.2cm) 1.2 cm RV (d.<2.3cm) 3.6 cm LVPW (sytole) 1.5 cm LV diastole(<5.6CM) 7.0 cm MV E-F(>70mm/sec) cm LV systole 5.3 cm LVOT Diameter 2.0 cm MV exc.(>10mm) cm Est.ejection fraction (50-75%) % DOPPLER: LVIT cm/sec A 107 cm/sec E 91 cm/sec LA cm/sec RVSP 44.8 mmHg LVOT 97 cm/sec AOP1/2T m/s Asc. Ao 174 cm/sec RVOT 63 cm/sec RA cm/sec PA 99 cm/sec AV Gradient Peak 12.1 mmHg AV Mean 7.1 mmHg AV Area 1.6 cm MV Gradient Peak 5.9 mmHg MV Mean 3.2 mmHg MV Area cm COMMENTS: Solutions Specialist: Alina PARIS Candlemaking Laborer: 1 Dr. Jacobsen TAPE# PACS Pericardial Effusion N DATE OF SERVICE: 11/04/2018 FINDINGS: 1. Left ventricular chamber size is dilated. Left ventricular systolic function is markedly reduced. Overall ejection fraction is 15% to 20%. 2. Left atrium, right atrium, and right ventricular chamber sizes are dilated, giving 4-chamber dilatation. 3. Valvular structures have normal structure and motion. 4. Doppler interrogation reveals mild mitral regurgitation and mild tricuspid regurgitation. ECHOCARDIOGRAM REPORT [id number] NARINDER KNOX 5. No evidence of pericardial effusion or left ventricular thrombus. 6. There is a left ventricular thrombus present. This does not have any impingement on outflow or inflow. TRANSINT:[id number] Voice Confirmation ID: [id number] DOCUMENT ID: [id number] KODY JACOBSEN MD at 0952 CC: [id number] DICTATION DATE: 11/04/181934 SEISMIC SURVEY ASSISTANT: 11/04/182021 DIS IN 11/06/18 [place] [id number] [place] [id number]
== END 2018-11-06 18:15 | DRG 208 ==
LOC: D.ER 14:19 → D.M2 17:09 → D.ICU 17:09
PROVIDERS: Emergency Medicine; Family Medicine; Internal Medicine Pulmonary Disease; ADMIT Internal Medicine Nephrology; ATTEND Internal Medicine Nephrology
PROC: 5A1935Z Respiratory Ventilation, Less than 24 Consecutive Hours (ICD-10-PCS; principal; 2018-11-06)
PROC: 0BH17EZ Insertion of Endotracheal Airway into Trachea, Via Natural or Artificial Opening (ICD-10-PCS; 2018-11-06)
PROC: 5A12012 Performance of Cardiac Output, Single, Manual (ICD-10-PCS; 2018-11-06)
PROC: 02HV33Z Insertion of Infusion Device into Superior Vena Cava, Percutaneous Approach (ICD-10-PCS; 2018-11-06)
DX: I26.99 Other pulmonary embolism without acute cor pulmonale (principal); I50.23 Acute on chronic systolic (congestive) heart failure; G92 Toxic encephalopathy; J96.22 Acute and chronic respiratory failure with hypercapnia; J96.21 Acute and chronic respiratory failure with hypoxia; F17.213 Nicotine dependence, cigarettes, with withdrawal; J44.1 Chronic obstructive pulmonary disease with (acute) exacerbation; E87.1 Hypo-osmolality and hyponatremia; E22.2 Syndrome of inappropriate secretion of antidiuretic hormone; G93.1 Anoxic brain damage, not elsewhere classified; F10.10 Alcohol abuse, uncomplicated; I08.1 Rheumatic disorders of both mitral and tricuspid valves; I48.91 Unspecified atrial fibrillation; D53.9 Nutritional anemia, unspecified; Z85.118 Personal history of other malignant neoplasm of bronchus and lung